=== PATIENT | female | born 1940 | race Caucasian/White ===

== ENCOUNTER → 2016-10-23 | Outpatient (CLI) | payer OTHER ==
[2016-10-23 18:09] LABS: ALKALINE PHOSPHATASE 82 U/L (45-117); ALT/SGPT 20 U/L (12-78); AST/SGOT 19 U/L (15-37)
== END | disposition home or self-care (01) ==
LOC: C.LABBFT 13:33
PROVIDERS: ATTEND Nurse Practitioner
DX: Z00.00 Encounter for general adult medical examination without abnormal findings (principal); E78.5 Hyperlipidemia, unspecified

== ENCOUNTER → 2016-11-11 | Outpatient (CLI) | payer OTHER ==
--- NOTE | 2016-11-11 08:58 | DIAGNOSTIC IMAGING REPORT ---
CT LUNG SCREENING, LOW DOSE WITH COMPUTER-AIDED DETECTION (CAD) CLINICAL HISTORY: HX OF TOBACCO USE COMPARISON STUDY: No previous studies for comparison. CT DOSE: 91.67 mGy.cm TECHNIQUE: Low-dose helical CT was acquired without intravenous contrast from lung apices to bases and reconstructed at 2.5 mm every 2 mm. CAD was utilized for this study. FINDINGS: Mild emphysema. Punctate calcified granulomas within the right lower lobe on images 174 and 173 of 321. No suspicious pulmonary nodules. No pleural effusions. No pneumothorax. Mild central bronchial wall thickening. The central airways are patent. No mediastinal or hilar lymphadenopathy. Mild calcified plaque within the aortic arch. Mild calcified plaque within the bilateral coronary arteries. Small hiatus hernia. A 1.5 cm left thyroid nodule. The visualized liver, spleen, and adrenal glands are unremarkable. Mild S-shaped scoliosis of the thoracolumbar spine. IMPRESSION: 1. No pulmonary nodules. 2. Emphysema. 3. Mild calcified plaque within the aortic arch and bilateral coronary arteries. 4. A 1.5 cm left thyroid nodule. Follow-up nonemergent thyroid ultrasound is recommended. CAD FINDINGS: Overall Lung RADS Category: 1 Lung RADS Management Recommendation: Lung-RADS 1: Continue annual screening in 12 months. Lung RADS Follow Up Date: 2017-11-11 Lung RADS Nodule ID: Electronically signed by: Christiano Rios M.D. 11/11/2016 8:57 AM Dictated Date/Time: 11/11/2016 8:50 AM
== END | disposition home or self-care (01) ==
LOC: C.CTS 08:31
PROVIDERS: ATTEND Nurse Practitioner
DX: Z87.891 Personal history of nicotine dependence (principal); J43.9 Emphysema, unspecified; E04.1 Nontoxic single thyroid nodule

== ENCOUNTER → 2016-11-18 | Outpatient (CLI) | payer OTHER ==
--- NOTE | 2016-11-18 12:58 | DIAGNOSTIC IMAGING REPORT ---
THYROID ULTRASOUND CLINICAL HISTORY: Thyroid nodule. COMPARISON STUDY: Chest CT November 11, 2016. TECHNIQUE: Sonography of the thyroid gland was performed. FINDINGS: The right thyroid lobe measures 4.3 x 1.5 x 1.5 cm and the left lobe measures 5.5 x 1.8 x 1.8 cm. Note is made of a 1.4 x 1.2 x 1.3 cm nodule within the lower pole of the left thyroid lobe. This is predominantly solid. There is a similar-appearing nodule within the midpole of the left lobe that measures 2 x 1.6 x 1.6 cm. This contains numerous tiny echogenic foci which could reflect colloid or microcalcifications. IMPRESSION: Two left lobe thyroid nodules, the largest of which measures 2 cm. The sonographic appearance is nonspecific and ultrasound guided fine needle aspiration of the 2 cm mid pole nodule could be performed. Electronically signed by: Pilo Desir M.D. 11/18/2016 12:57 PM Dictated Date/Time: 11/18/2016 12:52 PM
== END | disposition home or self-care (01) ==
LOC: C.ULTR 12:28
PROVIDERS: ATTEND Nurse Practitioner
DX: E04.2 Nontoxic multinodular goiter (principal)

== ENCOUNTER → 2016-12-02 | Outpatient (CLI) | payer OTHER ==
--- NOTE | 2016-12-02 10:38 | DIAGNOSTIC IMAGING REPORT ---
Thyroid biopsy GUIDANCE NEEDLE PLACEMENT CLINICAL HISTORY: THYROID Nodule, thyroid DISORDER TECHNIQUE: Ultrasound guided thyroid biopsy COMPARISON STUDY: 11/18/2016 FINDINGS: Following description of the procedure and informed consent, a single pass with a 25-gauge needle was made to the dominant nodule left thyroid. Pathology initially indicated adequate tissue. There are no complications. IMPRESSION: Successful left thyroid fine-needle aspiration biopsy Electronically signed by: Cesar Hoskins M.D. 12/02/2016 10:37 AM Dictated Date/Time: 12/02/2016 10:36 AM
== END | disposition home or self-care (01) ==
LOC: C.ULTR 09:47
PROVIDERS: ATTEND Nurse Practitioner
DX: E07.9 Disorder of thyroid, unspecified (principal)

== ENCOUNTER → 2017-04-20 | Outpatient (CLI) | payer OTHER ==
[2017-04-20 17:44] LABS: BASO % 1.3 %; COMPLETE YES; EOS % 2.7 %; HEMATOCRIT 39.9 % (37-47); IG% 0.5 %; LYMPH % 39.7 %; MEAN CELL VOLUME 92.4 fL (80-100); MEAN CORPUSCULAR HEMOGLOBIN 30.3 pg (25-34); MEAN CORPUSCULAR HGB CONC 32.8 g/dl (32-36); MEAN PLATELET VOLUME 10.4 fL (7.4-10.4); MONO % 5.4 %; NEUT % 50.4 %; PLATELET COUNT 215 K/uL (130-400); RED BLOOD COUNT 4.32 M/uL (4.2-5.4); WHITE BLOOD COUNT 7.81 K/uL (4.8-10.8)
[2017-04-20 17:54] LABS: URINE APPEARANCE CLOUDY (CLEAR); URINE BILIRUBIN NEG (NEG); URINE COLOR YELLOW; URINE EPITHELIAL CELL AUTO >30 /lpf (0-5); URINE NITRITE NEG (NEG); URINE SPECIFIC GRAVITY 1.021 (1.000-1.030); UROBILINOGEN NEG (NEG)
[2017-04-20 17:55] LABS: MANUAL MICROSCOPIC REQUIRED? NO; REVIEW REQ? NO
[2017-04-20 18:00] LABS: ALT/SGPT 21 U/L (12-78); BLOOD UREA NITROGEN 14 mg/dl (7-18); BUN/CREATININE RATIO 18.5 (10-20); CALCIUM 9.1 mg/dl (8.5-10.1); CARBON DIOXIDE 30 mmol/L (21-32); CHLORIDE 105 mmol/L (98-107); CHOLESTEROL 228 mg/dl (0-200); CREATININE 0.76 mg/dl (0.60-1.20); GLUCOSE 98 mg/dl (70-99); POTASSIUM 4.4 mmol/L (3.5-5.1); SODIUM 140 mmol/L (136-145); TRIGLYCERIDES 216 mg/dl (0-150); VERY LOW DENSITY LIPOPROT CALC 43 mg/dl
[2017-04-20 18:03] LABS: ALB/GLOB RATIO 1.1 (0.9-2); ALKALINE PHOSPHATASE 80 U/L (45-117); AST/SGOT 25 U/L (15-37); CHOLESTEROL/HDL RATIO 3.9; HDL CHOLESTEROL 59 mg/dl; LDL CHOLESTEROL CALCULATED 126 mg/dl
== END | disposition home or self-care (01) ==
LOC: C.LABBFT 13:49
PROVIDERS: ATTEND Nurse Practitioner
DX: R73.01 Impaired fasting glucose (principal); E78.5 Hyperlipidemia, unspecified

== ENCOUNTER → 2017-06-03 | Outpatient (CLI) | payer OTHER ==
--- NOTE | 2017-06-03 14:00 | DIAGNOSTIC IMAGING REPORT ---
THYROID ULTRASOUND CLINICAL HISTORY: Follow up thyroid nodules. COMPARISON STUDY: Thyroid ultrasound November 18, 2016 and ultrasound-guided fine needle aspiration of thyroid nodule December 02, 2016. TECHNIQUE: Sonography of the thyroid gland was performed. FINDINGS: The right lobe measures 5.3 x 1.5 x 1.7 cm and the left measures 5.8 x 1.5 x 1.8 cm. There are no right lobe nodules. The left mid pole nodule which was previously biopsied now measures 2 x 1.5 x 1.6 cm. It previously measured 2 x 1.6 x 1.6 cm. The left lower pole nodule measures 1.2 x 1.2 x 1.1 cm. It previously measured 1.4 x 1.2 x 1.3 cm. Apparent change is likely due to measurement variability. These nodules have similar imaging characteristics and are predominantly solid with small cystic spaces. IMPRESSION: No significant change in 2 left lobe thyroid nodules since exam of November 18, 2016. Electronically signed by: Pilo Desir M.D. 06/03/2017 1:58 PM Dictated Date/Time: 06/03/2017 1:56 PM
== END | disposition home or self-care (01) ==
LOC: C.ULTR 12:41
PROVIDERS: ATTEND Nurse Practitioner
DX: E04.1 Nontoxic single thyroid nodule (principal)

== ENCOUNTER → 2017-11-04 | Outpatient (CLI) | payer OTHER ==
[2017-11-04 17:26] LABS: ALT/SGPT 22 U/L (12-78); AST/SGOT 22 U/L (15-37); BLOOD UREA NITROGEN 8 mg/dl (7-18); CALCIUM 9.1 mg/dl (8.5-10.1); CARBON DIOXIDE 30 mmol/L (21-32); CHOLESTEROL 173 mg/dl (0-200); CREATININE 0.92 mg/dl (0.60-1.20); GLUCOSE 97 mg/dl (70-99); POTASSIUM 3.6 mmol/L (3.5-5.1); SODIUM 143 mmol/L (136-145)
[2017-11-04 17:29] LABS: ALKALINE PHOSPHATASE 78 U/L (45-117); LDL CHOLESTEROL CALCULATED 71 mg/dl; TOTAL PROTEIN 7.8 gm/dl (6.4-8.2)
== END | disposition home or self-care (01) ==
LOC: C.LABBFT 12:47
PROVIDERS: ATTEND Nurse Practitioner
DX: E78.5 Hyperlipidemia, unspecified (principal)

== ENCOUNTER 2018-12-03 14:41 | Inpatient (IN) ==
--- NOTE | 2018-12-03 15:42 | XRay Report ---
XR chest 1V portable CLINICAL HISTORY: 78 years-old Female presenting with ams. TECHNIQUE: Portable upright AP view of the chest was obtained. COMPARISON: 11/02/2018. FINDINGS: Atherosclerosis of the aortic arch. Cardiac silhouette normal in size. Lungs are hyperinflated. Few c alcified granulomata suggested. No other focal opacity. No pleural effusion or pneumothorax. Osteopen ia. Degenerative changes of the spine. Upper abdomen normal. IMPRESSION: 1. Findings suggest emphysema. No focal infiltrate to suggest pneumonia. Electronically signed by: Phil Matamoros M.D. 12/03/2018 3:40 PM
[2018-12-03 16:30] LABS: Basophils # (auto) 0.05 K/uL (0-0.2); Basophils % (auto) 0.8 %; Eosinophils # (auto) 0.07 K/uL (0-0.5); Eosinophils % (auto) 1.1 %; Hematocrit (blood only) 39.6 % (37-47); Hemoglobin 13.6 g/dL (12.0-16.0); Immature Granulocytes # (auto) 0.02 K/uL (0.00-0.02); Immature Granulocytes % (auto) 0.3 %; Lymphocytes # (auto) 0.56 K/uL (1.2-3.4); Lymphocytes % (auto) 8.7 %; Mean Corpuscular Hgb Conc 34.3 g/dL (32-36); Mean Platelet Volume 9.5 fL (7.4-10.4); Monocytes # (auto) 0.38 K/uL (0.11-0.59); Monocytes % (auto) 5.9 %; Neutrophils # (auto) 5.33 K/uL (1.4-6.5); Neutrophils % (auto) 83.2 %; Platelet Count 194 K/uL (130-400); RDW Coefficient of Variation 12.8 % (11.5-14.5); RDW Standard Deviation 41.9 fL (36.4-46.3); Red Blood Count 4.45 M/uL (4.2-5.4); White Blood Count 6.41 K/uL (4.8-10.8)
[2018-12-03 16:36] LABS: Base Excess VBG 4.8 mEq/L; HCO3 VBG 31 mmol/L; PCO2 VBG 51 mmHg (38-50); PO2 VBG 25 mmHg
[2018-12-03 16:37] LABS: Oxygen Saturation VBG < 60.0 %
[2018-12-03 16:41] LABS: Partial Thromboplastin Ratio 1.1; Partial Thromboplastin Time 29.7 Seconds (21.0-31.0)
[2018-12-03 16:50] LABS: Alanine Aminotransferase 17 U/L (12-78); Aspartate Aminotransferase 17 U/L (15-37); BUN Creatinine Ratio 13.1 (10-20); Bilirubin Direct 0.1 mg/dl (0-0.2); Blood Urea Nitrogen 15 mg/dl (7-18); Calcium 9.3 mg/dl (8.5-10.1); Carbon Dioxide 31 mmol/L (21-32); Chloride 101 mmol/L (98-107); Est GFR (African American) 54.7; Est GFR (Non-African American) 47.2; Glucose 111 mg/dl (70-99); Magnesium 2.1 mg/dl (1.8-2.4); Potassium 4.1 mmol/L (3.5-5.1); Sodium 138 mmol/L (136-145)
[2018-12-03 16:55] LABS: Alkaline Phosphatase 114 U/L (45-117); Bilirubin,Total 0.6 mg/dl (0.2-1); NT Pro B Type Natriuretic Pept 38 pg/ml (0-1800); Total Protein 8.4 gm/dl (6.4-8.2); Troponin I < 0.015 ng/ml (0-0.045)
--- NOTE | 2018-12-03 17:08 | CT Scan Report ---
CT head/brain wo con CLINICAL HISTORY: 78 years-old Female with ams. Acutely altered mental status TECHNIQUE: Multiple axial CT images of the head were obtained without contrast. A dose lowering tech nique was utilized adhering to the principles of ALARA. CT DOSE: 729.78 mGycm COMPARISON: None. FINDINGS: Motion degraded exam. Age-related involutional changes with ex vacuo ventriculomegaly. Scattered whit e matter hypodensities are suggestive of chronic microvascular ischemic disease. Cerebral vascular ca lcifications are also noted. No acute intracranial hemorrhage, midline shift, intracranial mass, hydr ocephalus, territorial ischemia or abnormal extra-axial collection. The calvarium is intact. The paranasal sinuses, mastoid air cells, and middle ear cavities are clear . IMPRESSION: No acute intracranial abnormality. The above report was generated using voice recognition software. It may contain grammatical, syntax o r spelling errors. Electronically signed by: Pilo Hill M.D. 12/03/2018 5:06 PM
[2018-12-03 18:31] LABS: Appearance Urine Clear (Clear); Bilirubin Urine Negative (Negative); Blood Urine Negative (Negative); Color Urine Yellow; Glucose Urine UA Negative (Negative); Ketones Urine Negative (Negative); Leukocyte Esterase Urine Negative (Negative); Nitrite Urine Negative (Negative); Protein Urine Negative (Negative); Specific Gravity Urine 1.017 (1.000-1.030); Urobilinogen Urine Negative (Negative)
[2018-12-03] MEDS ORDERED: LORazepam 1 MG/2 ML VIAL IV STA (19:33)
[2018-12-03] MEDS ORDERED: HALOPERIDOL LACTATE 5 MG/ML 1 ML VIAL ONE ×2 (19:57→20:26)
[2018-12-03] MEDS ORDERED: methylPREDNISolone 125 MG/2 ML VIAL ONE (20:02)
[2018-12-03] MEDS ORDERED: methylPREDNISolone 125 MG/2 ML VIAL IV STA (20:02)
[2018-12-03] MEDS ORDERED: DiphenhydrAMINE HCL 50 MG/ML VIAL ONE (20:02)
[2018-12-03] MEDS ORDERED: DiphenhydrAMINE HCL 50 MG/ML VIAL IV STA (20:03)
[2018-12-03] MEDS ORDERED: LEVALBUTEROL HCL 1.25 MG/3 ML NEB NEB STA (20:04)
--- NOTE | 2018-12-03 20:22 | History & Physical Report ---
Date of Service December 03, 2018 Assessment & Plan (1) Dementia: Patient is really brought here for inability of her family care for her at home and inability to have a place in a safe location. While in the ER after administration of 1 mg of intravenous Ativan she is a episode of course tremulousness sinus tachycardia during the event her blood pressure and oximetry were stable during the event she developed some expiratory wheezes and prolonged expiratory phase was treated first somewhat of a COPD exacerbation given her smoking history. Remain pale-appearing Xopenex and scheduled Solu-Medrol at this time It seemed the Benadryl did calm her trach tremulousness more effectively than Ativan she was however also given Haldol somewhere in that timeline. This affects she is significantly sundowning is a believe that she may be significantly sleep deprived also. Will attempt to use Seroquel at night utilizing intravenous Haldol and that marriage probably due to her initial screening laboratories were unremarkable at this time we will add a few additional test although her recent thyroid test was in October and unremarkable PT OT evaluation in case assembler will be utilized to help replacement this patient. History of Present Illness Primary Care Provider: LUANN Vega Patient brought in by her family stating they cannot care for her at home anymore. She typically has a caregiver from 11 AM to 2 PM. The patient is confused and demented which she reportedly is her baseline she does not want to stay she is tremulous and anxious in the ER. Reportedly she is only on Lasix and potassium which she takes for lower extremity edema. Denies alcohol use or other [id number] medicine use. Patient is a former smoker quitting a few months ago. In the ER the patient received a dose of 1 mg of IV Ativan that she had a reaction which included gross course tremors tachycardia at 160 bpm which was narrow complex appeared to be sinus tach and some stridorous breathing. She was given Haldol 2.5 mg Benadryl 25 mg which then made her more sedate and her tachycardia resolved she is currently undergoing a Xopenex nebulized treatment and Solu-Medrol 125. Review of all of her laboratory work is unrevealing and EKG after the tachycardic episode may show some lateral ST slight depressions which are likely rate related. During the episode the patient did not complain of any chest pain Allergies Allergy/AdvReac Type Severity Reaction Status Date / Time No Known Allergies Allergy Mild Unverified 12/03/18 17:06 Home Medications Home Medications Medication Instructions Recorded Confirmed Type furosemide 20 mg PO QAM 12/03/18 12/03/18 History potassium chloride 10 meq PO QAM 12/03/18 12/03/18 History Past Med/Surg History Medical History Dementia Social History Preferred Language: Maori current occupational status: retired Feels Safe at Home: Yes Review of Systems Review of Systems: ROS: Prior to the administration of the Benadryl Thin tremulous and confused No double vision blurry vision No problems with speech or swallowing No palpitations, chest pain or pressure No Wheezing or breathing issues she became having tachypnea and some expiratory wheezes post lorazepam administration No abdominal pain nausea vomiting diarrhea changes in appetite or weight No burning urine urine frequency or changes in color No focal joint pain or muscle pain No skin rashes or oral lesions No unusual bruising or bleeding No focused back pain or numbness or loss of strength Progressive changes with confusion and memory Physical Exam Physical Exam: The patient appeared thin and agitated Vital signs as documented. Head exam is unremarkable. normocephalic, atraumatic Neck is without jugular venous distension, thyromegaly, or lymphademopathy Lungs are expiratory wheezes and prolonged expiratory phase seen in her tremulous Cardiac exam reveals Rhythm was regular. She developed a sinus tach to 160 Abdominal exam reveals normal bowel sounds, no masses, no organomegaly Extremities are mildly edematous and both pedal pulses are present Neurologic exam is A&Ox2, no focal deficits, strength is equal bilateral to spontaneously moving all extremities during the event and cooperating and speaking to us during the event which makes seizures less likely Psychologically seems anxious Skin is warm Dry Results & Data Vital Signs (Past 12 Hours) Vital Signs Temp Pulse Pulse Resp BP BP Pulse Ox 12/03/18 20:13 121 H 34 H 98 12/03/18 20:11 131 H 20 97 12/03/18 20:00 37.2 C 149 H 32 H 111/83 96 12/03/18 19:36 94 12/03/18 19:35 84 L 12/03/18 18:54 113 H 24 130/72 91 12/03/18 17:10 110 H 30 H 149/90 H 93 12/03/18 16:50 106 H 36 H 91 12/03/18 16:40 107 H 30 H 91 12/03/18 16:32 104 H 27 H 91 12/03/18 16:30 100 H 27 H 94 12/03/18 16:20 105 H 27 H 91 12/03/18 16:10 109 H 33 H 92 12/03/18 16:01 106 H 31 H 130/75 94 12/03/18 16:00 106 H 34 H 93 12/03/18 15:57 107 H 33 H 145/69 H 91 12/03/18 15:56 114 H 34 H 12/03/18 15:40 104 H 24 12/03/18 15:30 108 H 33 H 12/03/18 15:25 112 H 22 12/03/18 14:45 37.3 C 103 H 20 124/[address] head unremarkable for acute issues EKG shows sinus rhythm mild ST changes laterally after her tachycardic event which is still going slightly tachycardic Chest x-ray is unremarkable for infiltrates or pathology within her chest
[2018-12-03] MEDS ORDERED: ONDANSETRON INJ 2 MG/ML 2 ML VIAL IV PRN (21:23)
[2018-12-03] MEDS ORDERED: HALOPERIDOL LACTATE 5 MG/ML 1 ML VIAL IV PRN (21:23)
[2018-12-03] MEDS ORDERED: DiphenhydrAMINE HCL 50 MG/ML VIAL IV PRN (21:23)
[2018-12-03] MEDS ORDERED: HALOPERIDOL LACTATE 5 MG/ML 1 ML VIAL IM PRN (21:23)
[2018-12-03] MEDS ORDERED: LEVALBUTEROL HCL 1.25 MG/3 ML NEB NEB PRN (21:23)
[2018-12-03] MEDS ORDERED: ACETAMINOPHEN 325 MG TAB PO PRN (21:23)
--- NOTE | 2018-12-03 21:48 | Emergency Department Note ---
Entered by Ekta Castle acting as a scribe for Marshal Patel History of Present Illness General Chief complaint: Altered Mental Status Stated complaint: DIMENTIA, CONFUSED Time Seen by Provider: 12/03/18 15:19 Source: family (daughter) Mode of arrival: ambulatory Limitations: other (dementia) History of Present Illness Provider complaint: Altered mental status Onset (ago): hour(s) (today) Location: head Radiation: non-radiation Pain Consistency: + other (worsening) Quality: + other (altered mental status) Associated symptoms: + other (Additional symptoms: leg swelling, difficulty walking, [id number] speech) Treatments prior to arrival: none The patient is a 78 year old female with a history of dementia who presents to the Emergency Room with caregiver and family at bedside who are reporting that the patient has been experiencing altered mental status starting today. Per the family member at bedside the patient's speech was also out of character today. She states that the patient's concrete paving machine operator tried to help the patient go to the bathroom for an hour but was unsuccessful because the patient was too afraid of falling. She notes that they have been trying to get a urine sample from the patient for the past few weeks but the patient has not been cooperating. The daughter expresses concern for a UTI because the patient has declined rapidly over the past few weeks. Per daughter, the patient's only medications include 20 mg Furosemide and potassium chloride.She notes that the patient's PCP is Dr. Elliott. Per daughter, the patient's concrete paving machine operator is only around for 3 hours every day, so the patient is alone at home for a significant part of the day. The family member does not feel like the patient is safe by herself. She notes that she has to leave soon and was seen walking out stating she wanted the patient admitted for placement into a nursing care facility. HPI limited secondary to dementia. Home Medications Home Medications Medication Instructions Recorded Confirmed Type furosemide 20 mg PO QAM 12/03/18 12/03/18 History potassium chloride 10 meq PO QAM 12/03/18 12/03/18 History Allergies Allergy/AdvReac Type Severity Reaction Status Date / Time No Known Allergies Allergy Mild Unverified 12/03/18 17:06 Past Med/Surg History Medical History Dementia Social History Preferred Language: Cambodian Communication Ability: Impaired Communication Ability Comment: pt sedated at this time Fruit Harvest Machine Operator Required: No Beliefs That Will Affect Care: None Current Living Situation: Alone Current Living Situation Comment: Lives byself; intermittent caregivers current occupational status: retired Other Information That Helps Us Care for You: No Feels Safe at Home: Yes Safety Concerns: Feels Safe At This Time Smoking Status: Former smoker Do You Dip or Chew Tobacco: No Second Hand Exposure: No Tobacco Cessation Education Requested by Patient: No Hx Alcohol Use: No Hx Substance Use: No Review of Systems Other (Limited secondary to dementia) Physical Exam Vital Signs Vital Signs - 24 hr 12/03/18 14:45 12/03/18 15:25 12/03/18 15:30 Temperature 37.3 C Temperature Source Oral Sepsis Recent Fever Within 48 Hours No Sepsis New/Unexplained Change in Mental Status No Sepsis Action Taken by Nursing No Action Required Pulse Rate 103 H 112 H 108 H Pulse Rate [Finger] Pulse Rate from SpO2 Sensor Respiratory Rate 20 22 33 H Respiratory Depth Normal Blood Pressure 124/73 Blood Pressure [Right Arm] Blood Pressure Mean 90 Blood Pressure Mean [Right Arm] Blood Pressure Position [Right Arm] Pulse Oximetry 94 Oxygen Delivery Method Room Air 12/03/18 15:40 12/03/18 15:56 12/03/18 15:57 Temperature Temperature Source Sepsis Recent Fever Within 48 Hours Sepsis New/Unexplained Change in Mental Status Sepsis Action Taken by Nursing Pulse Rate 104 H 114 H 107 H Pulse Rate [Finger] Pulse Rate from SpO2 Sensor 107 H Respiratory Rate 24 34 H 33 H Respiratory Depth Blood Pressure 145/69 H Blood Pressure [Right Arm] Blood Pressure Mean 94 Blood Pressure Mean [Right Arm] Blood Pressure Position [Right Arm] Pulse Oximetry 91 Oxygen Delivery Method 12/03/18 16:00 12/03/18 16:01 12/03/18 16:10 Temperature Temperature Source Sepsis Recent Fever Within 48 Hours Sepsis New/Unexplained Change in Mental Status Sepsis Action Taken by Nursing Pulse Rate 106 H 106 H 109 H Pulse Rate [Finger] Pulse Rate from SpO2 Sensor 104 H 106 H 107 H Respiratory Rate 34 H 31 H 33 H Respiratory Depth Blood Pressure 130/75 Blood Pressure [Right Arm] Blood Pressure Mean 93 Blood Pressure Mean [Right Arm] Blood Pressure Position [Right Arm] Pulse Oximetry 93 94 92 Oxygen Delivery Method 12/03/18 16:20 12/03/18 16:30 12/03/18 16:32 Temperature Temperature Source Sepsis Recent Fever Within 48 Hours Sepsis New/Unexplained Change in Mental Status Sepsis Action Taken by Nursing Pulse Rate 105 H 100 H 104 H Pulse Rate [Finger] Pulse Rate from SpO2 Sensor 107 H 99 H 104 H Respiratory Rate 27 H 27 H 27 H Respiratory Depth Blood Pressure Blood Pressure [Right Arm] Blood Pressure Mean 103 Blood Pressure Mean [Right Arm] Blood Pressure Position [Right Arm] Pulse Oximetry 91 94 91 Oxygen Delivery Method 12/03/18 16:40 12/03/18 16:50 12/03/18 17:10 Temperature Temperature Source Sepsis Recent Fever Within 48 Hours Sepsis New/Unexplained Change in Mental Status Sepsis Action Taken by Nursing Pulse Rate 107 H 106 H Pulse Rate [Finger] 110 H Pulse Rate from SpO2 Sensor 105 H 106 H Respiratory Rate 30 H 36 H 30 H Respiratory Depth Blood Pressure Blood Pressure [Right Arm] 149/90 H Blood Pressure Mean Blood Pressure Mean [Right Arm] 109 Blood Pressure Position [Right Arm] Pulse Oximetry 91 91 93 Oxygen Delivery Method Room Air 12/03/18 18:54 12/03/18 19:35 12/03/18 19:36 Temperature Temperature Source Sepsis Recent Fever Within 48 Hours Sepsis New/Unexplained Change in Mental Status Sepsis Action Taken by Nursing Pulse Rate Pulse Rate [Finger] 113 H Pulse Rate from SpO2 Sensor Respiratory Rate 24 Respiratory Depth Blood Pressure Blood Pressure [Right Arm] 130/72 Blood Pressure Mean Blood Pressure Mean [Right Arm] 91 Blood Pressure Position [Right Arm] Pulse Oximetry 91 84 L 94 Oxygen Delivery Method Room Air Room Air Room Air 12/03/18 20:00 Temperature 37.2 C Temperature Source Oral Sepsis Recent Fever Within 48 Hours Sepsis New/Unexplained Change in Mental Status Sepsis Action Taken by Nursing Pulse Rate Pulse Rate [Finger] 149 H Pulse Rate from SpO2 Sensor Respiratory Rate 32 H Respiratory Depth Blood Pressure Blood Pressure [Right Arm] 111/83 Blood Pressure Mean Blood Pressure Mean [Right Arm] 92 Blood Pressure Position [Right Arm] Lying Pulse Oximetry 96 Oxygen Delivery Method Non-rebreather HENT: Exam performed. - Head: Normocephalic and atraumatic. - Right Ear: External ear normal. No mastoid tenderness. - Left Ear: External ear normal. No mastoid tenderness. - Mouth/Throat: The oropharynx is clear and moist. No trismus in the jaw. No dental abscesses or uvula swelling. No oropharyngeal exudate or tonsillar abscesses. EYES: Conjunctivae and EOM are normal. Pupils are equal, round, and reactive to light. Right eye exhibits no discharge. Left eye exhibits no discharge. No scleral icterus. NECK: Normal range of motion. Neck supple. No JVD present. No spinous process tenderness present. No carotid bruit present. No rigidity. No tracheal deviation and normal range of motion present. No Brudzinski's sign and no Kernig's sign noted. CV: Tachycardic rate, regular rhythm, normal heart sounds and intact distal pulses. 2+ pitting edema of bilateral lower extremities. Palpable radial pulses bue. PULM/CHEST: Effort normal and breath sounds normal. No respiratory distress. No stridor. She has no wheezes. She has no rales. Chest Wall: She exhibits no tenderness. ABD: The abdomen is soft nontender to palpation MUSC/SKEL: Normal range of motion. There is no tenderness or deformity. 2+ pitting edema of bilateral lower extremities. LYMPH: No cervical adenopathy. NEURO: Motor and sensation grossly intact. SKIN: Skin is warm and dry. She is not diaphoretic. Course 1521: The patient was evaluated in room C10, and a complete history and physical examination were performed. 2004: I reevaluated the patient. Labs and imaging are within normal limits. The patient's family is adamant that she be placed in a home and are refusing to take her home because they believe that she is unsafe by herself. Dr. Prasad - [facility] was contacted for placement in a nursing care facility. 2100: The patient was becoming more agitated per nurse, thus 1 mg Ativan was ordered. After the Ativan, the patient was being evaluated by Dr. Prasad when she became tremulous and more agitated. Dr. Prasad ordered 2.5 mg Haldol IVP. However, the patient continued to be tremulous and also became tachycardic, so I gave her 25 mg Benadryl and Solu-Medrol. IV fluids were started after. The patient's tremors subsequently resolved and her heart rate improved. The patient was admitted by Dr. Prasad for further management. Consultations Consultation #1: Dr. Prasad - [facility] was contacted for placement in a nursing care facility. Time: 15:21 Administered Medications Discontinued Medications Diphenhydramine HCl (Benadryl) Confirm Administered Dose 50 mg .ROUTE .STK-MED ONE Stop: 12/03/18 20:03 Last Admin: 12/03/18 20:10 Dose: Not Given Documented by: [id number] Diphenhydramine HCl (Benadryl) 25 mg IV NOW STA Stop: 12/03/18 20:04 Last Admin: 12/03/18 20:04 Dose: 25 mg Documented by: [id number] Haloperidol Lactate (Haldol) Confirm Administered Dose 5 mg .ROUTE .STK-MED ONE Stop: 12/03/18 19:58 Last Admin: 12/03/18 19:58 Dose: 2.5 mg Documented by: [id number] Haloperidol Lactate (Haldol) Confirm Administered Dose 5 mg .ROUTE .STK-MED ONE Stop: 12/03/18 20:27 Last Admin: 12/03/18 20:28 Dose: 2.5 mg Documented by: [id number] Lorazepam (Ativan) 1 mg in 2 mls @ 2 mls/min IV NOW STA Stop: 12/03/18 19:34 Last Admin: 12/03/18 19:42 Dose: 2 mls/min Documented by: [id number] Levalbuterol HCl (Xopenex 1.25mg/3ml Neb) 1.25 mg NEB NOW STA Stop: 12/03/18 20:05 Last Admin: 12/03/18 20:10 Dose: 1.25 mg Documented by: [id number] Methylprednisolone (Solumedrol) 125 mg IV NOW STA Stop: 12/03/18 20:03 Last Admin: 12/03/18 20:04 Dose: 125 mg Documented by: [id number] Methylprednisolone (Solumedrol) Confirm Administered Dose 125 mg .ROUTE .STK-MED ONE Stop: 12/03/18 20:03 Last Admin: 12/03/18 20:10 Dose: Not Given Documented by: [id number] Medical Decision Making Medical Records Attestation: I reviewed the patient's medical records. Home Medications Current Medication List: was personally reviewed by me Laboratory Data Attestation: I reviewed the patient's lab results. Result diagrams: 12/03/18 16:13 12/03/18 16:13 Lab Results 12/03/18 12/03/18 12/03/18 Range/Units 16:13 16:13 16:13 WBC 6.41 (4.8-10.8) K/uL RBC 4.45 (4.2-5.4) M/uL Hgb 13.6 (12.0-16.0) g/dL Hct 39.6 (37-47) % MCV 89.0 (80-100) fL MCH 30.6 (25-34) pg MCHC 34.3 (32-36) g/dL RDW Std Deviation 41.9 (36.4-46.3) fL RDW Coeff of Kimi 12.8 (11.5-14.5) % Plt Count 194 (130-400) K/uL MPV 9.5 (7.4-10.4) fL Immature Gran % (Auto) 0.3 % Neut % (Auto) 83.2 % Lymph % (Auto) 8.7 % [place] % (Auto) 5.9 % Eos % (Auto) 1.1 % Baso % (Auto) 0.8 % Immature Gran # (Auto) 0.02 (0.00-0.02) K/uL Neut # (Auto) 5.33 (1.4-6.5) K/uL Lymph # (Auto) 0.56 L (1.2-3.4) K/uL [place] # (Auto) 0.38 (0.11-0.59) K/uL Eos # (Auto) 0.07 (0-0.5) K/uL Baso # (Auto) 0.05 (0-0.2) K/uL PT (9.0-12.0) Seconds INR (0.9-1.1) APTT (21.0-31.0) Seconds PTT Ratio VBG pH (7.36-7.41) VBG pCO2 (38-50) mmHg VBG pO2 mmHg VBG HCO3 mmol/L VBG O2 Saturation % VBG Base Excess mEq/L Barometric Pressure mm/Hg Sodium 138 (136-145) mmol/L Potassium 4.1 (3.5-5.1) mmol/L Chloride 101 (98-107) mmol/L Carbon Dioxide 31 (21-32) mmol/L Anion Gap 6.0 (3-11) BUN 15 (7-18) mg/dl Creatinine 1.11 (0.6-1.2) mg/dl Est Cr Clr Drug Dosing Not Reportable Est GFR ( Amer) 54.7 Est GFR (Non-Af Amer) 47.2 BUN/Creatinine Ratio 13.1 (10-20) Glucose 111 H (70-99) mg/dl Lactate 1.1 (0.4-2.0) mmol/L Calcium 9.3 (8.5-10.1) mg/dl Magnesium 2.1 (1.8-2.4) mg/dl Total Bilirubin 0.6 (0.2-1) mg/dl Direct Bilirubin 0.1 (0-0.2) mg/dl AST 17 (15-37) U/L ALT 17 (12-78) U/L Alkaline Phosphatase 114 (45-117) U/L Ammonia (11-32) umol/L Troponin I < 0.015 (0-0.045) ng/ml NT-Pro-B Natriuret Pep 38 (0-1800) pg/ml Total Protein 8.4 H (6.4-8.2) gm/dl Albumin 4.0 (3.4-5.0) gm/dl Lipase 153 (73-393) U/L Urine Color Urine Appearance (Clear) Urine pH (4.5-7.5) Ur Specific [place] (1.000-1.030) Urine Protein (Negative) Urine Glucose (UA) (Negative) Urine Ketones (Negative) Urine Blood (Negative) Urine Nitrite (Negative) Urine Bilirubin (Negative) Urine Urobilinogen (Negative) Ur Leukocyte Esterase (Negative) 12/03/18 12/03/18 12/03/18 Range/Units 16:13 16:13 16:13 WBC (4.8-10.8) K/uL RBC (4.2-5.4) M/uL Hgb (12.0-16.0) g/dL Hct (37-47) % MCV (80-100) fL MCH (25-34) pg MCHC (32-36) g/dL RDW Std Deviation (36.4-46.3) fL RDW Coeff of Kimi (11.5-14.5) % Plt Count (130-400) K/uL MPV (7.4-10.4) fL Immature Gran % (Auto) % Neut % (Auto) % Lymph % (Auto) % [place] % (Auto) % Eos % (Auto) % Baso % (Auto) % Immature Gran # (Auto) (0.00-0.02) K/uL Neut # (Auto) (1.4-6.5) K/uL Lymph # (Auto) (1.2-3.4) K/uL [place] # (Auto) (0.11-0.59) K/uL Eos # (Auto) (0-0.5) K/uL Baso # (Auto) (0-0.2) K/uL PT 10.0 (9.0-12.0) Seconds INR 1.0 (0.9-1.1) APTT 29.7 (21.0-31.0) Seconds PTT Ratio 1.1 VBG pH 7.40 (7.36-7.41) VBG pCO2 51 H (38-50) mmHg VBG pO2 25 mmHg VBG HCO3 31 mmol/L VBG O2 Saturation < 60.0 % VBG Base Excess 4.8 mEq/L Barometric Pressure 730.8 mm/Hg Sodium (136-145) mmol/L Potassium (3.5-5.1) mmol/L Chloride (98-107) mmol/L Carbon Dioxide (21-32) mmol/L Anion Gap (3-11) BUN (7-18) mg/dl Creatinine (0.6-1.2) mg/dl Est Cr Clr Drug Dosing Est GFR ( Amer) Est GFR (Non-Af Amer) BUN/Creatinine Ratio (10-20) Glucose (70-99) mg/dl Lactate (0.4-2.0) mmol/L Calcium (8.5-10.1) mg/dl Magnesium (1.8-2.4) mg/dl Total Bilirubin (0.2-1) mg/dl Direct Bilirubin (0-0.2) mg/dl AST (15-37) U/L ALT (12-78) U/L Alkaline Phosphatase (45-117) U/L Ammonia < 10.0 L (11-32) umol/L Troponin I (0-0.045) ng/ml NT-Pro-B Natriuret Pep (0-1800) pg/ml Total Protein (6.4-8.2) gm/dl Albumin (3.4-5.0) gm/dl Lipase (73-393) U/L Urine Color Urine Appearance (Clear) Urine pH (4.5-7.5) Ur Specific [place] (1.000-1.030) Urine Protein (Negative) Urine Glucose (UA) (Negative) Urine Ketones (Negative) Urine Blood (Negative) Urine Nitrite (Negative) Urine Bilirubin (Negative) Urine Urobilinogen (Negative) Ur Leukocyte Esterase (Negative) 12/03/18 Range/Units 18:05 WBC (4.8-10.8) K/uL RBC (4.2-5.4) M/uL Hgb (12.0-16.0) g/dL Hct (37-47) % MCV (80-100) fL MCH (25-34) pg MCHC (32-36) g/dL RDW Std Deviation (36.4-46.3) fL RDW Coeff of Kimi (11.5-14.5) % Plt Count (130-400) K/uL MPV (7.4-10.4) fL Immature Gran % (Auto) % Neut % (Auto) % Lymph % (Auto) % [place] % (Auto) % Eos % (Auto) % Baso % (Auto) % Immature Gran # (Auto) (0.00-0.02) K/uL Neut # (Auto) (1.4-6.5) K/uL Lymph # (Auto) (1.2-3.4) K/uL [place] # (Auto) (0.11-0.59) K/uL Eos # (Auto) (0-0.5) K/uL Baso # (Auto) (0-0.2) K/uL PT (9.0-12.0) Seconds INR (0.9-1.1) APTT (21.0-31.0) Seconds PTT Ratio VBG pH (7.36-7.41) VBG pCO2 (38-50) mmHg VBG pO2 mmHg VBG HCO3 mmol/L VBG O2 Saturation % VBG Base Excess mEq/L Barometric Pressure mm/Hg Sodium (136-145) mmol/L Potassium (3.5-5.1) mmol/L Chloride (98-107) mmol/L Carbon Dioxide (21-32) mmol/L Anion Gap (3-11) BUN (7-18) mg/dl Creatinine (0.6-1.2) mg/dl Est Cr Clr Drug Dosing Est GFR ( Amer) Est GFR (Non-Af Amer) BUN/Creatinine Ratio (10-20) Glucose (70-99) mg/dl Lactate (0.4-2.0) mmol/L Calcium (8.5-10.1) mg/dl Magnesium (1.8-2.4) mg/dl Total Bilirubin (0.2-1) mg/dl Direct Bilirubin (0-0.2) mg/dl AST (15-37) U/L ALT (12-78) U/L Alkaline Phosphatase (45-117) U/L Ammonia (11-32) umol/L Troponin I (0-0.045) ng/ml NT-Pro-B Natriuret Pep (0-1800) pg/ml Total Protein (6.4-8.2) gm/dl Albumin (3.4-5.0) gm/dl Lipase (73-393) U/L Urine Color Yellow Urine Appearance Clear (Clear) Urine pH 5.0 (4.5-7.5) Ur Specific [place] 1.017 (1.000-1.030) Urine Protein Negative (Negative) Urine Glucose (UA) Negative (Negative) Urine Ketones Negative (Negative) Urine Blood Negative (Negative) Urine Nitrite Negative (Negative) Urine Bilirubin Negative (Negative) Urine Urobilinogen Negative (Negative) Ur Leukocyte Esterase Negative (Negative) Imaging Data Radiologist's Impression: Radiology results as stated below per my review and the radiologist's interpretation: CT head/brain wo con CLINICAL HISTORY: 78 years-old Female with ams. Acutely altered mental status TECHNIQUE: Multiple axial CT images of the head were obtained without contrast. A dose lowering technique was utilized adhering to the principles of ALARA. CT DOSE: 729.78 mGycm COMPARISON: None. FINDINGS: Motion degraded exam. Age-related involutional changes with ex vacuo v entriculomegaly. Scattered white matter hypodensities are suggestive of chronic microvascular ischemic disease. Cerebral vascular calcifications are also noted. No acute intracranial hemorrhage, midline shift, intracranial mass, hydrocephalus, territorial ischemia or abnormal extra-axial collection. The calvarium is intact. The paranasal sinuses, mastoid air cells, and middle ear cavities are clear. IMPRESSION: No acute intracranial abnormality. The above report was generated using voice recognition software. It may contain grammatical, syntax or spelling errors. Electronically signed by: Pilo Hill M.D. 12/03/2018 5:06 PM XR chest 1V portable CLINICAL HISTORY: 78 years-old Female presenting with ams. TECHNIQUE: Portable upright AP view of the chest was obtained. COMPARISON: 11/02/2018. FINDINGS: Atherosclerosis of the aortic arch. Cardiac silhouette normal in size. Lungs are hyperinflated. Few calcified granulomata suggested. No other focal opacity. No pleural effusion or pneumothorax. Osteopenia. Degenerative changes of the spine. Upper abdomen normal. IMPRESSION: 1. Findings suggest emphysema. No focal infiltrate to suggest pneumonia. Electronically signed by: Phil Matamoros M.D. 12/03/2018 3:40 PM ECG Data Attestation: I personally reviewed and interpreted this ECG as follows: Indication: altered mental status Rate (beats per minute): 108 Rhythm: sinus rhythm Findings: + other (IN, QRS, and QTC intervals are within normal limits) and + PVC; no ST depression and no ST elevation Additional Comments: Repeat EKG findings: sinus rhythm; 121 BPM; IN, QRS, and QTC intervals are within normal limits; mild ST depression in leads V4 and V5, no ST elevation. Blood Pressure Blood Pressure Findings: Normal blood pressure [facility] Narrative 1521: The patient was evaluated in room C10, and a complete history and physical examination were performed. 2005: I reevaluated the patient. Labs and imaging are within normal limits. The patient's family is adamant that she be placed in a home and are refusing to take her home because they believe that she is unsafe by herself. Dr. Prasad - Hospitalist, [facility] was contacted for placement in a nursing care facility. 2100: The patient was becoming more agitated per nurse, thus 1 mg Ativan was ordered. After the Ativan, the patient was being evaluated by Dr. Prasad when she became tremulous and more agitated. Dr. Prasad ordered 2.5 mg Haldol IVP. However, the patient continued to be tremulous and also became tachycardic, so I gave her 25 mg Benadryl and Solu-Medrol. IV fluids were started after. The patient's tremors subsequently resolved and her heart rate improved. The patient was admitted by Dr. Prasad for further management. Impression & Plan Adverse drug reaction Discharge Plan Visit Data *Final* Discharge Date/Time: 12/03/18 20:33 Chief Complaint: Altered Mental Status Stated Complaint: DIMENTIA, CONFUSED ED Provider: Marshal Patel Discharge Problem: Adverse drug reaction Patient Disposition: Admitted As Inpatient Discharge Instructions Interventions: ED Discharge Assessment Last Done: 12/03/18 20:33 Discharge Problem: Adverse drug reaction Qualifiers: Encounter type: initial encounter Qualified Code(s): T50.905A - Adverse effect of unspecified drugs, medicaments and biological substances, initial encounter The scribe's documentation has been prepared under my direction and personally reviewed by me in its entirety. I confirm that the note above accurately reflects all work, treatment, procedures, and medical decision making performed by me.
[2018-12-04] MEDS: QUETIAPINE FUMARATE 25 MG TABLET PO SCH ×2 (00:37→20:26)
[2018-12-04] MEDS ORDERED: methylPREDNISolone 40 MG in SYRINGE 0 ML IV SCH (08:00)
[2018-12-04] MEDS ORDERED: PNEUMOCOCCAL POLYSACCHARIDES 25 MCG/0.5 ML VIAL/SYR IM ONE (08:00)
[2018-12-04] MEDS ORDERED: PNEUMOCOCCAL ADMINISTRATION CHARGE ONE (08:00)
--- NOTE | 2018-12-04 15:13 | Hospitalist Progress Note ---
Date of Service December 04, 2018 Assessment & Plan (1) Dementia: Patient is really brought here for inability of her family care for her at home and inability to have a place in a safe location. she has a limited resident care associate at home but at this point family looking into [facility] consult PT/OT to assist in placement process CM reached out to SNF, waiting to hear back from patient's son Williams MYERS for 2nd/3rd choices (2) Adverse drug reaction: received Ativan in the ED started to have tremors and tachycardia and wheezing, relieved with Solu Medrol and Benadryl and nebulizers hold any further Ativan will stop Solu Medrol as there is no wheezing on exam and no stridor or distress (3) Elevated troponin: no chest pain, no EKG changes, minimal rise in trop to 0.4 and then down to 0.3, initial trop was <0.015 no further troponins will transfer to medical floor Subjective patient is calm, resting in bed she is eating well, has no complaints troponin up to 0.4 this morning, down to 0.3 at noon denies any chest pain, likely due to her episode of tachycardia after reaction to Ativan patient is only oriented to person, has no idea what month or year it is, does not know type of building she is in or the town she does not know why she was brought to the hospital discussed with CM, will get PT/OT evaluations to look into SNF rehab may end of being senior care resident Review of Systems Review of Systems: Unobtainable due to cognitive status Physical Exam Constitutional: WD/WN, vitals as above Eyes: PERRL, conjunctivae normal, anicteric sclerae ENMT: external ear and nose normal, oropharynx normal Neck: trachea midline, no thyromegaly Respiratory: normal respiratory effort, lungs clear to auscultation Cardiovascular: RRR, no murmur, no edema Gastrointestinal (Abdomen): normal bowel sounds, soft, nontender, no hepatosplenomegaly Musculoskeletal: no cyanosis or clubbing, extremities motor strength 5/5 Skin: no rashes, warm and dry Neurologic: patellar DTR's 2+ bilat, sensation intact and PERRL, EOMI, accommodation nl, no face palsy, no dysarthria Psychiatric: Orientation: alert, oriented to person and cooperative; + not oriented to place and + not oriented to time Lymphatic: no cervical or axillary lymphadenopathy Results & Data Vital Signs (Past 12 Hours) Vital Signs Temp Pulse Resp BP Pulse Ox 12/04/18 11:57 36.8 C 93 H 18 126/52 L 90 12/04/18 07:13 36.5 C 75 18 102/56 L 97 Laboratory Results Laboratory Results - last 24 hr 12/03/18 12/03/18 12/03/18 16:13 16:13 16:13 WBC 6.41 RBC 4.45 Hgb 13.6 Hct 39.6 MCV 89.0 MCH 30.6 MCHC 34.3 RDW Std Deviation 41.9 RDW Coeff of Kimi 12.8 Plt Count 194 MPV 9.5 Immature Gran % (Auto) 0.3 Neut % (Auto) 83.2 Lymph % (Auto) 8.7 [place] % (Auto) 5.9 Eos % (Auto) 1.1 Baso % (Auto) 0.8 Immature Gran # (Auto) 0.02 Neut # (Auto) 5.33 Lymph # (Auto) 0.56 L [place] # (Auto) 0.38 Eos # (Auto) 0.07 Baso # (Auto) 0.05 PT INR APTT PTT Ratio VBG pH VBG pCO2 VBG pO2 VBG HCO3 VBG O2 Saturation VBG Base Excess Barometric Pressure Sodium 138 Potassium 4.1 Chloride 101 Carbon Dioxide 31 Anion Gap 6.0 BUN 15 Creatinine 1.11 Est Cr Clr Drug Dosing Not Reportable Est GFR ( Amer) 54.7 Est GFR (Non-Af Amer) 47.2 BUN/Creatinine Ratio 13.1 Glucose 111 H Lactate 1.1 Calcium 9.3 Magnesium 2.1 Total Bilirubin 0.6 Direct Bilirubin 0.1 AST 17 ALT 17 Alkaline Phosphatase 114 Ammonia Troponin I < 0.015 NT-Pro-B Natriuret Pep 38 Total Protein 8.4 H Albumin 4.0 Lipase 153 Urine Color Urine Appearance Urine pH Ur Specific [place] Urine Protein Urine Glucose (UA) Urine Ketones Urine Blood Urine Nitrite Urine Bilirubin Urine Urobilinogen Ur Leukocyte Esterase 12/03/18 12/03/18 12/03/18 16:13 16:13 16:13 WBC RBC Hgb Hct MCV MCH MCHC RDW Std Deviation RDW Coeff of Kimi Plt Count MPV Immature Gran % (Auto) Neut % (Auto) Lymph % (Auto) [place] % (Auto) Eos % (Auto) Baso % (Auto) Immature Gran # (Auto) Neut # (Auto) Lymph # (Auto) [place] # (Auto) Eos # (Auto) Baso # (Auto) PT 10.0 INR 1.0 APTT 29.7 PTT Ratio 1.1 VBG pH 7.40 VBG pCO2 51 H VBG pO2 25 VBG HCO3 31 VBG O2 Saturation < 60.0 VBG Base Excess 4.8 Barometric Pressure 730.8 Sodium Potassium Chloride Carbon Dioxide Anion Gap BUN Creatinine Est Cr Clr Drug Dosing Est GFR ( Amer) Est GFR (Non-Af Amer) BUN/Creatinine Ratio Glucose Lactate Calcium Magnesium Total Bilirubin Direct Bilirubin AST ALT Alkaline Phosphatase Ammonia < 10.0 L Troponin I NT-Pro-B Natriuret Pep Total Protein Albumin Lipase Urine Color Urine Appearance Urine pH Ur Specific [place] Urine Protein Urine Glucose (UA) Urine Ketones Urine Blood Urine Nitrite Urine Bilirubin Urine Urobilinogen Ur Leukocyte Esterase 12/03/18 12/04/18 12/04/18 18:05 05:58 11:57 WBC RBC Hgb Hct MCV MCH MCHC RDW Std Deviation RDW Coeff of Kimi Plt Count MPV Immature Gran % (Auto) Neut % (Auto) Lymph % (Auto) [place] % (Auto) Eos % (Auto) Baso % (Auto) Immature Gran # (Auto) Neut # (Auto) Lymph # (Auto) [place] # (Auto) Eos # (Auto) Baso # (Auto) PT INR APTT PTT Ratio VBG pH VBG pCO2 VBG pO2 VBG HCO3 VBG O2 Saturation VBG Base Excess Barometric Pressure Sodium Potassium Chloride Carbon Dioxide Anion Gap BUN Creatinine Est Cr Clr Drug Dosing Est GFR ( Amer) Est GFR (Non-Af Amer) BUN/Creatinine Ratio Glucose Lactate Calcium Magnesium Total Bilirubin Direct Bilirubin AST ALT Alkaline Phosphatase Ammonia Troponin I 0.427 H* 0.329 H* NT-Pro-B Natriuret Pep Total Protein Albumin Lipase Urine Color Yellow Urine Appearance Clear Urine pH 5.0 Ur Specific [place] 1.017 Urine Protein Negative Urine Glucose (UA) Negative Urine Ketones Negative Urine Blood Negative Urine Nitrite Negative Urine Bilirubin Negative Urine Urobilinogen Negative Ur Leukocyte Esterase Negative Medications Administered Current Inpatient Medications Acetaminophen (Tylenol) 650 mg PO Q4H PRN PRN Reason: Pain or Fever Stop: 01/02/19 21:22 Diphenhydramine HCl (Benadryl) 25 mg IV Q6H PRN PRN Reason: allergy or agitation Stop: 01/02/19 21:22 Haloperidol Lactate (Haldol) 5 mg IM Q6H PRN PRN Reason: Agitation Stop: 01/02/19 21:22 Haloperidol Lactate (Haldol) 1 mg IV Q1H PRN PRN Reason: Agitation Stop: 01/02/19 21:22 Methylprednisolone 40 mg/ (Syringe) 0.64 mls @ 1.5 mls/min IV Q12H [facility]MBER[facility] Stop: 01/03/19 07:59 Last Admin: 12/04/18 08:43 Dose: 1.5 mls/min Documented by: Levalbuterol HCl (Xopenex 1.25mg/3ml Neb) 1.25 mg NEB Q3H PRN PRN Reason: shortness of breath Stop: 01/02/19 21:22 Ondansetron HCl (Zofran) 4 mg IV Q6H PRN PRN Reason: Nausea Stop: 01/02/19 21:22 Quetiapine Fumarate (Seroquel) 25 mg PO HS [facility] Stop: 01/02/19 21:22 Last Admin: 12/04/18 00:37 Dose: Not Given Documented by: (1) Adverse drug reaction Encounter type: initial encounter Qualified Code(s): T50.905A - Adverse effect of unspecified drugs, medicaments and biological substances, initial encounter
[2018-12-05] MEDS ORDERED: PIPERACILL/TAZOBAC CONSULT ACTIVE PRN (10:37)
--- NOTE | 2018-12-05 10:43 | Hospitalist Progress Note ---
Date of Service December 05, 2018 Assessment & Plan (1) Pneumonia: Now with fever and tachycardia, and crackles at the left base, along with left lower lobe infiltrate present starting on 12/05. Question if had aspiration event after receiving Ativan in the ER -Draw blood cultures -Give acetaminophen as needed for fever -Started Zosyn today to cover for aspiration pneumonia -Give 1 L of normal saline at 80 mL's per hour Unclear if this pneumonia is related to the alteration in mental status that brought her in, but this did develop within 48 hours after admission (2) Fever: Related to left lower lobe pneumonia as above, question aspiration pneumon itis -Treat with a Tylenol and antibiotics as above (3) Dementia: Patient is really brought here for inability of her family care for her at home and inability to have a place in a safe location. she has a limited manager care management at home but at this point family looking into [facility] [address] [facility] Presented with altered mental status consult PT/OT to assist in placement process CM planning for placement at longterm after discharge -Discontinue IV diphenhydramine as this could worsen altered mental status -Can give IM Haldol as needed for severe agitation -We will give supportive care (4) Adverse drug reaction: received Ativan in the ED started to have tremors and tachycardia and wheezing, relieved with Solu Medrol and Benadryl and nebulizers hold any further Ativan will stop Solu Medrol as there is no wheezing on exam and no stridor or distress (5) Elevated troponin: no chest pain, no EKG changes, minimal rise in trop to 0.4 and then down to 0.3, initial trop was <0.015 no further troponins No further telemetry monitoring was needed and she was since transferred to the medical floor (6) DVT prophylaxis: Lovenox 40 mg SQ daily added today Disposition-remain hospitalized at least 1-2 more days to ensure blood cultures with no growth and fevers resolving Appreciate PT/OT evaluations in case management involvement with future placement in a longterm Full code Subjective Patient was noted to have a fever this morning. She denies any problems to me. Denies cough however RN reports that the patient has had rhonchi today. The patient denies nausea or vomiting, denies chest pain shortness of breath, denies abdominal pain. She could not tell me where she was when I asked her. Review of Systems Review of Systems: All systems reviewed & are unremarkable except as noted in HPI & below Physical Exam Constitutional: WD/WN, vitals as above Eyes: PERRL, conjunctivae normal, anicteric sclerae ENMT: external ear and nose normal, oropharynx normal (MMM) Neck: trachea midline, no thyromegaly Respiratory: normal respiratory effort Auscultation: + crackles (left middle lung lutz and decreased BS right upper lung field); no wheezes Cardiovascular: RRR, no murmur, no edema Gastrointestinal (Abdomen): normal bowel sounds, soft, nontender, no hepatosplenomegaly Musculoskeletal: Extremities: extremities normal to inspection; no cyanosis and no clubbing Skin: no rashes, warm and dry Neurologic: moves all extremities and awake; no focal motor deficits Psychiatric: Orientation: alert, oriented to person and cooperative; + not oriented to place ("I don't know") and + not oriented to time (year is "2 thousand...something") Results & Data Vital Signs (Past 12 Hours) Vital Signs Temp Pulse Resp BP BP Pulse Ox 12/05/18 07:38 39.3 C H 99 H 20 156/75 H 90 12/05/18 07:30 39.3 C H 99 H 20 127/63 90 12/05/18 07:04 37.7 C H 12/05/18 04:21 81 16 93 12/05/18 00:50 36.7 C 88 20 117/67 92 Laboratory Results 12/05/18 12/05/18 12/05/18 Range/Units 10:37 10:37 10:37 WBC 5.68 (4.8-10.8) K/uL RBC 4.17 L (4.2-5.4) M/uL Hgb 12.2 (12.0-16.0) g/dL Hct 37.2 (37-47) % MCV 89.2 (80-100) fL MCH 29.3 (25-34) pg MCHC 32.8 (32-36) g/dL RDW Std Deviation 42.0 (36.4-46.3) fL RDW Coeff of Kimi 13.0 (11.5-14.5) % Plt Count 143 (130-400) K/uL MPV 9.4 (7.4-10.4) fL Immature Gran % (Auto) 0.7 % Neut % (Auto) 79.9 % Lymph % (Auto) 12.7 % [place] % (Auto) 6.2 % Eos % (Auto) 0.0 % Baso % (Auto) 0.5 % Immature Gran # (Auto) 0.04 H (0.00-0.02) K/uL Neut # (Auto) 4.54 (1.4-6.5) K/uL Lymph # (Auto) 0.72 L (1.2-3.4) K/uL [place] # (Auto) 0.35 (0.11-0.59) K/uL Eos # (Auto) 0.00 (0-0.5) K/uL Baso # (Auto) 0.03 (0-0.2) K/uL Sodium 138 (136-145) mmol/L Potassium 3.6 (3.5-5.1) mmol/L Chloride 103 (98-107) mmol/L Carbon Dioxide 30 (21-32) mmol/L Anion Gap 5.0 (3-11) BUN 21 H (7-18) mg/dl Creatinine 1.13 (0.6-1.2) mg/dl Est Cr Clr Drug Dosing 35.2 ml/min Est GFR ( Amer) 53.5 Est GFR (Non-Af Amer) 46.2 BUN/Creatinine Ratio 18.6 (10-20) Glucose 95 (70-99) mg/dl Calcium 8.9 (8.5-10.1) mg/dl Total Bilirubin 0.3 (0.2-1) mg/dl Direct Bilirubin < 0.1 (0-0.2) mg/dl AST 21 (15-37) U/L ALT 16 (12-78) U/L Alkaline Phosphatase 95 (45-117) U/L Total Protein 7.5 (6.4-8.2) gm/dl Albumin 3.4 (3.4-5.0) gm/dl Procalcitonin 0.46 (0-0.5) ng/ml Diagnostic Findings Chest x-ray image personally reviewed by me and agree with the following report: XR chest 1V portable HISTORY: 78 years-old Female hypoxia,fever acute fever COMPARISON: Chest radiograph 12/03/2018 TECHNIQUE: Portable AP view of the chest FINDINGS: Patient is slightly rotated which limits the study. Cardiomediastinal and hilar silhouettes are unchanged. Lungs are mildly hyperinflated. No pneumothorax or overt pulmonary edema. Mild blunting of the left costophrenic angle with left basilar opacities. Degenerative changes of the shoulders and spine. IMPRESSION: 1. Subsegmental left basilar opacities suggest atelectasis or pneumonitis. 2. Probable trace left pleural effusion. (1) Adverse drug reaction Encounter type: initial encounter Qualified Code(s): T50.905A - Adverse effect of unspecified drugs, medicaments and biological substances, initial encounter
[2018-12-05 11:00] LABS: Basophils # (auto) 0.03 K/uL (0-0.2); Basophils % (auto) 0.5 %; Hematocrit (blood only) 37.2 % (37-47); Hemoglobin 12.2 g/dL (12.0-16.0); Immature Granulocytes # (auto) 0.04 K/uL (0.00-0.02); Immature Granulocytes % (auto) 0.7 %; Lymphocytes # (auto) 0.72 K/uL (1.2-3.4); Lymphocytes % (auto) 12.7 %; Mean Corpuscular Hgb Conc 32.8 g/dL (32-36); Mean Corpuscular Volume 89.2 fL (80-100); Mean Platelet Volume 9.4 fL (7.4-10.4); Monocytes # (auto) 0.35 K/uL (0.11-0.59); Monocytes % (auto) 6.2 %; Neutrophils # (auto) 4.54 K/uL (1.4-6.5); Neutrophils % (auto) 79.9 %; Platelet Count 143 K/uL (130-400); Red Blood Count 4.17 M/uL (4.2-5.4); White Blood Count 5.68 K/uL (4.8-10.8)
[2018-12-05] MEDS ORDERED: PIPERACILLIN/TAZOBACTAM 3.375 GM in DEXTROSE 5% 100 ML IV ONE (11:15)
[2018-12-05 11:23] LABS: Alanine Aminotransferase 16 U/L (12-78); Albumin Level 3.4 gm/dl (3.4-5.0); Aspartate Aminotransferase 21 U/L (15-37); BUN Creatinine Ratio 18.6 (10-20); Blood Urea Nitrogen 21 mg/dl (7-18); Calcium 8.9 mg/dl (8.5-10.1); Carbon Dioxide 30 mmol/L (21-32); Chloride 103 mmol/L (98-107); Creatinine Clr Calc Pharmacy 35.2 ml/min; Est GFR (African American) 53.5; Est GFR (Non-African American) 46.2; Glucose 95 mg/dl (70-99); Potassium 3.6 mmol/L (3.5-5.1); Sodium 138 mmol/L (136-145)
[2018-12-05 11:25] LABS: Alkaline Phosphatase 95 U/L (45-117); Bilirubin Direct < 0.1 mg/dl (0-0.2); Bilirubin,Total 0.3 mg/dl (0.2-1); Total Protein 7.5 gm/dl (6.4-8.2)
[2018-12-05] MEDS: ENOXAPARIN INJ 40 MG/0.4 ML SYR SQ SCH (12:08)
--- NOTE | 2018-12-05 12:32 | XRay Report ---
XR chest 1V portable HISTORY: 78 years-old Female hypoxia,fever acute fever COMPARISON: Chest radiograph 12/03/2018 TECHNIQUE: Portable AP view of the chest FINDINGS: Patient is slightly rotated which limits the study. Cardiomediastinal and hilar silhouettes are uncha nged. Lungs are mildly hyperinflated. No pneumothorax or overt pulmonary edema. Mild blunting of the left costophrenic angle with left basilar opacities. Degenerative changes of the shoulders and spine. IMPRESSION: 1. Subsegmental left basilar opacities suggest atelectasis or pneumonitis. 2. Probable trace left pleural effusion. The above report was generated using voice recognition software. It may contain grammatical, syntax o r spelling errors. Electronically signed by: Pilo Hill M.D. 12/05/2018 12:30 PM
[2018-12-05] MEDS: PIPERACILLIN/TAZOBACTAM 3.375 GM in DEXTROSE 5% 100 ML IV SCH (16:47)
[2018-12-05] MEDS: QUETIAPINE FUMARATE 25 MG TABLET PO SCH (21:39)
[2018-12-06] MEDS: PIPERACILLIN/TAZOBACTAM 3.375 GM in DEXTROSE 5% 100 ML IV SCH ×4 (00:05→23:09)
[2018-12-06] MEDS ORDERED: SODIUM CHLORIDE 0.9% 1000ML 1,000 ML IV SCH (01:30)
[2018-12-06 07:16] LABS: Basophils # (auto) 0.05 K/uL (0-0.2); Basophils % (auto) 1.1 %; Eosinophils # (auto) 0.03 K/uL (0-0.5); Eosinophils % (auto) 0.7 %; Hematocrit (blood only) 33.9 % (37-47); Hemoglobin 11.3 g/dL (12.0-16.0); Immature Granulocytes # (auto) 0.03 K/uL (0.00-0.02); Immature Granulocytes % (auto) 0.7 %; Lymphocytes # (auto) 1.02 K/uL (1.2-3.4); Mean Corpuscular Hgb Conc 33.3 g/dL (32-36); Mean Corpuscular Volume 87.8 fL (80-100); Mean Platelet Volume 9.4 fL (7.4-10.4); Monocytes # (auto) 0.44 K/uL (0.11-0.59); Monocytes % (auto) 9.9 %; Neutrophils # (auto) 2.86 K/uL (1.4-6.5); Neutrophils % (auto) 64.6 %; Platelet Count 128 K/uL (130-400); RDW Coefficient of Variation 13.3 % (11.5-14.5); RDW Standard Deviation 42.7 fL (36.4-46.3); Red Blood Count 3.86 M/uL (4.2-5.4); White Blood Count 4.43 K/uL (4.8-10.8)
[2018-12-06 07:45] LABS: RBC Morphology Unremarkable
[2018-12-06 07:50] LABS: BUN Creatinine Ratio 11.9 (10-20); Calcium 8.6 mg/dl (8.5-10.1); Creatinine Clr Calc Pharmacy 31.8 ml/min; Est GFR (African American) 47.4; Est GFR (Non-African American) 40.9; Potassium 3.5 mmol/L (3.5-5.1)
[2018-12-06] MEDS: ENOXAPARIN INJ 40 MG/0.4 ML SYR SQ SCH (11:20)
--- NOTE | 2018-12-06 14:16 | Hospitalist Progress Note ---
Date of Service December 06, 2018 Assessment & Plan (1) Pneumonia: fever and tachycardia developed on 12/05, left lower lobe infiltrate present on CXR Question if had aspiration event after receiving Ativan in the ER - no growth on blood cultures -Give acetaminophen as needed for fever -continue Zosyn, no fever since starting antibiotics no distress, minimal cough continue Zosyn until d/c and then transition to Augmentin to complete 7 days (2) Fever: Related to left lower lobe pneumonia as above, question aspiration pneumonitis -Treat with a Tylenol and antibiotics as above no fever for over 24 hours (3) Dementia: Patient is really brought here for inability of her family care for her at home and inability to have a place in a safe location. she has a limited health care recruiter at home but at this point family looking into [facility] Presented with altered mental status consult PT/OT to assist in placement process CM planning for placement at senior living after discharge plan to d/c to [facility] tomorrow (4) Adverse drug reaction: received Ativan in the ED started to have tremors and tachycardia and wheezing, relieved with Solu Medrol and Benadryl and nebulizers hold any further Ativan will stop Solu Medrol as there is no wheezing on exam and no stridor or distress (5) Elevated troponin: no chest pain, no EKG changes, minimal rise in trop to 0.4 and then down to 0.3, initial trop was <0.015 no further troponins No further telemetry monitoring was needed and she was since transferred to the medical floor (6) DVT prophylaxis: Lovenox 40 mg SQ daily added today Disposition- plan for SNF tomorrow Full code Subjective patient doing well, sitting up in a chair, no distress reports that she is breathing well no fever since yesterday WBC normal, minimal cough reports that she is eating well reviewed labs and updates since yesterday Review of Systems Review of Systems: All systems reviewed & are unremarkable except as noted in HPI & below Constitutional: no fever, no chills and no sweats Respiratory: no cough and no dyspnea Cardiovascular: no chest pain Gastrointestinal: no abdominal pain, no nausea, no vomiting, no constipation and no diarrhea/loose stools Physical Exam Constitutional: WD/WN, vitals as above Eyes: PERRL, conjunctivae normal, anicteric sclerae ENMT: external ear and nose normal, oropharynx normal Neck: trachea midline, no thyromegaly Respiratory: normal respiratory effort; no respiratory distress Auscultation: + crackles (left base); no rales, no rhonchi and no wheezes Cardiovascular: RRR, no murmur, no edema Gastrointestinal (Abdomen): normal bowel sounds, soft, nontender, no hepatosplenomegaly Musculoskeletal: no cyanosis or clubbing, extremities motor strength 5/5 Skin: no rashes, warm and dry Neurologic: patellar DTR's 2+ bilat, sensation intact and PERRL, EOMI, accommodation nl, no face palsy, no dysarthria Psychiatric: Orientation: alert, oriented to person and cooperative; + not oriented to place and + not oriented to time Lymphatic: no cervical or axillary lymphadenopathy Results & Data Vital Signs (Past 12 Hours) Vital Signs Temp Pulse Resp BP Pulse Ox 12/06/18 06:00 37.5 C 98 H 18 115/70 98 Laboratory Results Laboratory Results - last 24 hr 12/06/18 12/06/18 06:59 06:59 WBC 4.43 L RBC 3.86 L Hgb 11.3 L Hct 33.9 L MCV 87.8 MCH 29.3 MCHC 33.3 RDW Std Deviation 42.7 RDW Coeff of Kimi 13.3 Plt Count 128 L MPV 9.4 Immature Gran % (Auto) 0.7 Neut % (Auto) 64.6 Lymph % (Auto) 23.0 [place] % (Auto) 9.9 Eos % (Auto) 0.7 Baso % (Auto) 1.1 Immature Gran # (Auto) 0.03 H Neut # (Auto) 2.86 Lymph # (Auto) 1.02 L [place] # (Auto) 0.44 Eos # (Auto) 0.03 Baso # (Auto) 0.05 RBC Morphology Unremarkable Sodium 138 Potassium 3.5 Chloride 102 Carbon Dioxide 31 Anion Gap 5.0 BUN 15 Creatinine 1.25 H Est Cr Clr Drug Dosing 31.8 Est GFR ( Amer) 47.4 Est GFR (Non-Af Amer) 40.9 BUN/Creatinine Ratio 11.9 Glucose 108 H Calcium 8.6 Medications Administered Current Inpatient Medications Acetaminophen (Tylenol) 650 mg PO Q4H PRN PRN Reason: Pain or Fever Stop: 01/02/19 21:22 Last Admin: 12/05/18 06:41 Dose: 650 mg Documented by: Enoxaparin Sodium (Lovenox) 40 mg SQ QAM [facility] Stop: 01/04/19 10:44 Last Admin: 12/06/18 11:20 Dose: 40 mg Documented by: Haloperidol Lactate (Haldol) 5 mg IM Q6H PRN PRN Reason: Agitation Stop: 01/02/19 21:22 Piperacillin Sod/Tazobactam (Sod 3.375 gm/ Dextrose) 115 mls @ 28.75 mls/hr IV Q8H [facility]; Protocol Stop: 12/12/18 15:59 Last Infusion: 12/06/18 13:17 Dose: Infused Documented by: Levalbuterol HCl (Xopenex 1.25mg/3ml Neb) 1.25 mg NEB Q3H PRN PRN Reason: shortness of breath Stop: 01/02/19 21:22 Last Admin: 12/05/18 04:19 Dose: 1.25 mg Documented by: Miscellaneous Information (Consult) 1 ea N/A UD PRN PRN Reason: Consult Stop: 01/04/19 10:36 Ondansetron HCl (Zofran) 4 mg IV Q6H PRN PRN Reason: Nausea Stop: 01/02/19 21:22 Quetiapine Fumarate (Seroquel) 25 mg PO HS [facility] Stop: 01/02/19 21:22 Last Admin: 12/05/18 21:39 Dose: 25 mg Documented by: (1) Adverse drug reaction Encounter type: initial encounter Qualified Code(s): T50.905A - Adverse effect of unspecified drugs, medicaments and biological substances, initial encounter
[2018-12-06] MEDS: QUETIAPINE FUMARATE 25 MG TABLET PO SCH (20:36)
[2018-12-07] MEDS: PIPERACILLIN/TAZOBACTAM 3.375 GM in DEXTROSE 5% 100 ML IV SCH (07:56)
[2018-12-07] MEDS: ENOXAPARIN INJ 40 MG/0.4 ML SYR SQ SCH (07:57)
[2018-12-07 07:58] LABS: Appearance Urine Clear (Clear); Bacteria Urine Automated Negative (Negative); Blood Urine Negative (Negative); Color Urine Dark Yellow; Epithelial Cell Urine Auto 20-30 /lpf (0-5); Glucose Urine UA Negative (Negative); Ketones Urine Trace (Negative); Leukocyte Esterase Urine Negative (Negative); Nitrite Urine Negative (Negative); Protein Urine 1+ (Negative); RBC Urine Automated 0-4 /hpf (0-4); Specific Gravity Urine 1.032 (1.000-1.030); Urobilinogen Urine Negative (Negative)
[2018-12-07 08:28] LABS: Bilirubin Urine Negative (Negative); Ictotest Urine Negative (Negative)
[2018-12-07 08:31] LABS: Creatinine Clr Calc Pharmacy 37.2 ml/min; Est GFR (African American) 57.2; Est GFR (Non-African American) 49.3
[2018-12-07 08:58] LABS: Calcium Oxalate Crystals Urine Present (None Prsent)
--- NOTE | 2018-12-07 16:45 | Discharge Summary ---
Date of Service December 07, 2018 Admission HPI Per Admitting Provider Patient brought in by her family stating they cannot care for her at home anymore. She typically has a caregiver from 11 AM to 2 PM. The patient is confused and demented which she reportedly is her baseline she does not want to stay she is tremulous and anxious in the ER. Reportedly she is only on Lasix and potassium which she takes for lower extremity edema. Denies alcohol use or other [id number] medicine use. Patient is a former smoker quitting a few months ago. In the ER the patient received a dose of 1 mg of IV Ativan that she had a reaction which included gross course tremors tachycardia at 160 bpm which was narrow complex appeared to be sinus tach and some stridorous breathing. She was given Haldol 2.5 mg Benadryl 25 mg which then made her more sedate and her tachycardia resolved she is currently undergoing a Xopenex nebulized treatment and Solu-Medrol 125. Review of all of her laboratory work is unrevealing and EKG after the tachycardic episode may show some lateral ST slight depressions which are likely rate related. During the episode the patient did not complain of any chest pain Admission Exam Per Admitting Provider The patient appeared thin and agitated Vital signs as documented. Head exam is unremarkable. normocephalic, atraumatic Neck is without jugular venous distension, thyromegaly, or lymphademopathy Lungs are expiratory wheezes and prolonged expiratory phase seen in her tremulous Cardiac exam reveals Rhythm was regular. She developed a sinus tach to 160 Abdominal exam reveals normal bowel sounds, no masses, no organomegaly Extremities are mildly edematous and both pedal pulses are present Neurologic exam is A&Ox2, no focal deficits, strength is equal bilateral to spontaneously moving all extremities during the event and cooperating and speaking to us during the event which makes seizures less likely Psychologically seems anxious Skin is warm Dry Principal Diagnosis Left lower lobe pneumonia Discharge Exam Constitutional WD/WN, vitals as above Eyes PERRL, conjunctivae normal, anicteric sclerae ENMT external ear and nose normal, oropharynx normal Neck trachea midline, no thyromegaly Respiratory normal respiratory effort, lungs clear to auscultation normal respiratory effort; no respiratory distress Auscultation: no rales, no rhonchi and no wheezes Cardiovascular RRR, no murmur, no edema Gastrointestinal (Abdomen) normal bowel sounds, soft, nontender, no hepatosplenomegaly Musculoskeletal no cyanosis or clubbing, extremities motor strength 5/5 Skin no rashes, warm and dry Neurologic patellar DTR's 2+ bilat, sensation intact and PERRL, EOMI, accommodation nl, no face palsy, no dysarthria Psychiatric Orientation: alert, oriented to person and cooperative; + not oriented to place and + not oriented to time Lymphatic no cervical or axillary lymphadenopathy Discharge Data Allergies Allergy/AdvReac Type Severity Reaction Status Date / Time lorazepam [From Ativan] AdvReac Difficulty Verified 12/05/18 04:08 Breathing Consultations 12/03/18 18:35 ED Decision to Admit Stat 12/03/18 21:23 Consult Case Management - Discharge Planning Routine Ordered Studies 12/03/18 15:27 CT head/brain wo con Stat Hospital Course (1) Pneumonia: fever and tachycardia developed on 12/05, left lower lobe infiltrate present on CXR Question if had aspiration event after receiving Ativan in the ER - no growth on blood cultures -Give acetaminophen as needed for fever -treated with Zosyn, no fevers, WBC normal no cough, no respiratory distress, no hypoxia will d/c on Augmentin to complete a 7 day course (2) Fever: Related to left lower lobe pneumonia as above, question aspiration pneumonitis -Treat with a Tylenol and antibiotics as above no fever for over 72 hours (3) Dementia: Patient is really brought here for inability of her family care for her at home and inability to have a place in a safe location. she has a limited wound care nurse at home but at this point family looking into [facility] Presented with altered mental status consult PT/OT to assist in placement process CM planning [facility] after discharge plan to d/c to [facility] (4) Adverse drug reaction: received Ativan in the ED started to have tremors and tachycardia and wheezing, relieved with Solu Medrol and Benadryl and nebulizers hold any further Ativan will stop Solu Medrol as there is no wheezing on exam and no stridor or distress (5) Elevated troponin: no chest pain, no EKG changes, minimal rise in trop to 0.4 and then down to 0.3, initial trop was <0.015 no further troponins No further telemetry monitoring was needed and she was since transferred to the medical floor (6) DVT prophylaxis: Lovenox 40 mg SQ daily added today Disposition- plan for SNF tomorrow Full code (7) Urinary retention: likely due to starting Seroquel on admission as she never had this issue required straight catheterizations every shift will stop Seroquel as it really is not effective, question if there is a need for it, very pleasant and cooperative will ask that [facility] continue to straight cath every shift until the issue resolves, should resolve in the next week Total Time Total Time Spent Total Time Spent (In Minutes): 35 minutes Total Time Includes: Examination of the Patient, Discharge Planning, Medication Reconciliation and Other (long talk with patient's daughter over the phone) Discharge Plan Discharge Items Patient Disposition: Transfer Custodial Fac Reason For Visit: ENCEPHALOPATHY Discharge Diagnosis: Dementia Ambulatory dysfunction Left lower lobe pneumonia urinary retention Condition: Good Discharge Goals: Improve disease control and Improve function Activity: Resume your previous activity Non-emergency contact: Primary Care Provider Call non-emergency contact if: you have any medication questions, your symptoms worsen and you have a fever Follow-up/Referrals: Ingrid Elliott CRNP [Primary Care Provider] - Diet: Regular Addtl Provider Instructions: Medications: - AUGMENTIN: take twice a day for 9 more doses, next dose due this evening, to treat pneumonia Left lower lobe pneumonia occurred after she had a vomiting episode in the ED had fever on 12/05 and CXR with left lower lobe infiltrate treated with Zosyn IV and no fever, normal WBC ever since no respiratory distress, no hypoxia, no cough complete 9 more doses of Augmentin Urinary retention: did not come in with this issue suspect it was due to Seroquel that was started on admission will stop Seroquel please straight cath every shift until patient is urinating regularly Dementia: long standing issue, pleasant and cooperative no major behavioral issues needs rehab to get stronger, had some falls at home FOLLOW UP - physician at [facility] this week Prescriptions: New amoxicillin-pot clavulanate 875-125 mg Tablet 1 tab PO BIDM Qty: 9 RF: 0 Continued potassium chloride 10 mEq capsule, extended release 10 meq PO QAM RF: 0 furosemide 20 mg tablet 20 mg PO QAM RF: 0 Stand-Alone Forms: [facility] Discharge Orders: Discharge Order (Routine); Ordered 12/07/18 Ordered By: Rc Jeffery Skilled Items Patient informed of condition?: Yes DNR: No Discharge Level of Care: Skilled Communicable Disease: No Discharge Prognosis: Stable Admission Data Admit Date/Time: 12/03/18 20:05 Attending Provider: Rc Jeffery Admit Provider: Jose D Prasad Primary Care Provider: Ingrid Elliott Other Providers: Jose D Prasad ; IRB Approved Study,[facility] ; [facility] Service: Medical Other Interventions: Discharge Summary Assessment (RN) Last Done: 12/07/18 14:59 DC Date/Time DO NOT enter until pt leaves facility: 12/07/18 15:05
[2018-12-07] MEDS ORDERED: AMOXICILLIN/CLAVULANATE 875 MG TAB PO SCH (17:00)
== END 2018-12-07 15:05 ==
LOC: ED 14:41 → SUATTDRO 20:05 → 2E 20:05 → 4W 12-04 15:21

== ENCOUNTER 2019-02-21 10:10 | Inpatient (IN) ==
[2019-02-21] MEDS ORDERED: SODIUM CHLORIDE 0.9% 1000ML 1,000 ML IV SCH (10:30)
[2019-02-21 10:46] LABS: Basophils # (auto) 0.03 K/uL (0-0.2); Basophils % (auto) 0.2 %; Eosinophils # (auto) 0.03 K/uL (0-0.5); Eosinophils % (auto) 0.2 %; Hematocrit (blood only) 36.4 % (37-47); Hemoglobin 11.8 g/dL (12.0-16.0); Immature Granulocytes # (auto) 0.11 K/uL (0.00-0.02); Immature Granulocytes % (auto) 0.8 %; Lymphocytes # (auto) 0.93 K/uL (1.2-3.4); Lymphocytes % (auto) 6.6 %; Mean Corpuscular Hemoglobin 28.6 pg (25-34); Mean Corpuscular Hgb Conc 32.4 g/dL (32-36); Mean Corpuscular Volume 88.1 fL (80-100); Mean Platelet Volume 8.8 fL (7.4-10.4); Monocytes # (auto) 0.64 K/uL (0.11-0.59); Monocytes % (auto) 4.6 %; Neutrophils # (auto) 12.28 K/uL (1.4-6.5); Neutrophils % (auto) 87.6 %; Platelet Count 252 K/uL (130-400); RDW Coefficient of Variation 13.7 % (11.5-14.5); RDW Standard Deviation 44.3 fL (36.4-46.3); Red Blood Count 4.13 M/uL (4.2-5.4); White Blood Count 14.02 K/uL (4.8-10.8)
[2019-02-21 10:50] LABS: iSTAT Creatinine 0.8 mg/dl (0.6-1.3); iSTAT Hemoglobin 12.2 g/dl (12.0-16.0); iSTAT Ionized Calcium 1.21 mmol/l (1.12-1.32); iSTAT Potassium 3.6 mEq/L (3.3-5.0)
[2019-02-21 11:03] LABS: Alanine Aminotransferase 27 U/L (12-78); Albumin Level 3.2 gm/dl (3.4-5.0); Aspartate Aminotransferase 22 U/L (15-37); BUN Creatinine Ratio 22.4 (10-20); Blood Urea Nitrogen 21 mg/dl (7-18); Calcium 9.3 mg/dl (8.5-10.1); Carbon Dioxide 30 mmol/L (21-32); Chloride 105 mmol/L (98-107); Est GFR (African American) 67.7; Est GFR (Non-African American) 58.5; Glucose 120 mg/dl (70-99); Potassium 3.6 mmol/L (3.5-5.1); Sodium 141 mmol/L (136-145)
[2019-02-21] MEDS ORDERED: IOVERSOL 100ml IV PRN (11:05)
[2019-02-21 11:07] LABS: Albumin Globulin Ratio 0.7 (0.9-2); Alkaline Phosphatase 108 U/L (45-117); Bilirubin,Total 0.3 mg/dl (0.2-1); Globulin 4.4 gm/dl (2.5-4.0); Total Protein 7.6 gm/dl (6.4-8.2); Troponin I < 0.015 ng/ml (0-0.045)
--- NOTE | 2019-02-21 11:24 | CT Scan Report ---
HEAD CT NONCONTRAST CT DOSE: HISTORY: fall from bed TECHNIQUE: Multiaxial CT images of the head were performed without the use of intravenous contrast. A utomated exposure control was utilized for this study. A dose lowering technique was utilized adheri ng to the principles of ALARA. Comparison: Head CT 12/03/2018. Findings: Old, healed nasal bone fractures. The nasal sinuses and mastoid air cells are clear. The ca lvarium and skull base are intact. There is no mass, hematoma, midline shift, acute infarct. White ma tter hypodensity is nonspecific but suggestive of microvascular ischemic change. The ventricles and s ulci demonstrate mild age-related involutional changes. Impression: No significant change compared to the prior study. No acute intracranial abnormality. Electronically signed by: Christiano Rios M.D. 02/21/2019 11:23 AM
--- NOTE | 2019-02-21 11:41 | CT Scan Report ---
CT chest w con CLINICAL HISTORY: 78 years-old Female presenting with fall, right rib pain, hypoxia. TECHNIQUE: Multidetector CT imaging of the chest was performed after the administration of intravenou s contrast. IV contrast: 93 mL Optiray 320. One or more dose lowering techniques were used consistent with the principles of ALARA (as low as reasonably achievable), including automatic exposure control , mA or kV adjustment to individual patient size, and/or use of iterative reconstruction. COMPARISON: 11/11/2016. CT DOSE (mGy.cm): The estimated cumulative dose is 1269.43. FINDINGS: [employer] topogram: Unremarkable. Soft tissues: Dominant nodule in the left lobe of the thyroid is unchanged. No axillary, supraclavicu lar, mediastinal, or hilar lymphadenopathy. Atherosclerosis of the aorta. Normal heart size. Coronary artery calcification. No pericardial or pleural effusion. Small to moderate hiatal hernia. Lungs and airways: No pneumothorax. Bronchial wall thickening and subsegmental bronchial debris noted in the lower lobes, left greater than right. Dependent consolidation and volume loss in the left low er lobe, likely extensive atelectasis. Moderate upper lobe predominant centrilobular emphysema. Punct ate solid nodule in the right upper lobe (series 6 image 107). No other focal infiltrate.. Pulmonary arteries are not significantly enlarged relative to adjacent bronchi. No interlobular septal thickeni ng. Musculoskeletal: Acute fractures of the posterior left 10th and 11th ribs, which are displaced. Addit ional nondisplaced fracture of the lateral left 10th rib. Suspected nondisplaced fractures of the lat eral left seventh and eighth ribs. Associated small foci of gas in the extrapleural space. Mild compr ession deformity of T12 with a suspected fracture plane. IMPRESSION: 1. Acute fractures of the left posterior lateral ninth through 11th ribs. Displaced fractures of the 10th and 11th ribs posteriorly. Suspected fractures of the lateral left seventh and eighth ribs. 2. Suspected acute compression fracture of T12. 3. No pneumothorax. 4. Left lower lobe lateral atelectasis. 5. Emphysema with lower lobe bronchitis or chronic aspiration. Electronically signed by: Phil Matamoros M.D. 02/21/2019 11:39 AM
--- NOTE | 2019-02-21 11:42 | CT Scan Report ---
ABDOMEN AND PELVIS CT WITH IV CONTRAST CT DOSE: 1269.43 mGy.cm HISTORY: Acute abdominal trauma status post fall with abdominal distention. fall abd distension TECHNIQUE: Multiaxial CT images of the abdomen and pelvis were performed following the use of intrave nous contrast. A dose lowering technique was utilized adhering to the principles of ALARA. COMPARISON STUDY: Chest CT of same day, chest radiograph 11/02/2018. FINDINGS: There is a small left-sided hemothorax with subsegmental left basilar consolidation suggestive of ate lectasis. Mild bibasilar bronchial wall thickening with mild mucous plugging. Limited exam secondary to respiratory motion and upper extremity positioning. No pneumatosis or pneumoperitoneum. Imaged inf erior cardiac chambers are unremarkable. No pericardial effusion. Gallbladder, spleen, pancreas, live r and adrenal glands are unremarkable. Kidneys and ureters are within normal limits. No renal or uret eral calculi or obstructive uropathy. Moderate to extensive circumferential wall thickening of the ur inary bladder with mucosal hyperemia and perivesicular stranding. Thickening of the fundal endometriu m, 9 mm. No adnexal mass lesions. Extensive calcified plaque the abdominal aorta without aneurysm. No evidence of acute aortic injury or adenopathy. Small hiatal hernia. No bowel obstruction or bowel wall thickening. Moderate to extensive fecal reten tion about the colon. Appendix appears noninflamed. Diastases recti with small fat filled periumbilic al hernia. Deep tissue edema with a a few small foci of deep tissue air noted adjacent to acute later al left rib fractures. Suggestion of an acute nondisplaced fracture of the posterior left 12th rib. A cute mildly displaced fractures of the lateral left ninth rib and posterior left 10th and 11th ribs. 30% anterior endplate compression deformity of the T12 vertebral body without retropulsion appears ne w from 11/02/2018 and is likely acute. Acute nondisplaced fracture of the right ischial tuberosity. Ill -defined sclerosis of the right intertrochanteric region extending into the lesser trochanter compati ble with nondisplaced fracture. IMPRESSION: 1. Acute mildly displaced fractures of the lateral left ninth and posterior left 10th and 11th ribs w ith probable acute nondisplaced fracture of the posterior left 12th rib. 2. Small left-sided hemothorax with left basilar atelectasis. 3. No evidence of pneumoperitoneum or acute solid organ injury. 4. 30% anterior endplate compression deformity of T12 without retropulsion, likely acute. 5. Acute nondisplaced fracture of the right ischial tuberosity. 6. Nondisplaced fracture of the intertrochanteric right femur, acute versus subacute. 7. Moderate to extensive wall thickening of the bladder suggestive of cystitis. Correlate with urinal ysis 8. Additional findings as above. Electronically signed by: Pilo Hill M.D. 02/21/2019 11:40 AM
[2019-02-21 13:19] LABS: Appearance Urine Cloudy (Clear); Bacteria Urine Automated Negative (Negative); Bilirubin Urine Negative (Negative); Blood Urine 1+ (Negative); Color Urine Yellow; Epithelial Cell Urine Auto 0-5 /lpf (0-5); Glucose Urine UA Negative (Negative); Ketones Urine Negative (Negative); Leukocyte Esterase Urine 3+ (Negative); Nitrite Urine Negative (Negative); Protein Urine 1+ (Negative); Specific Gravity Urine 1.031 (1.000-1.030); Urobilinogen Urine Negative (Negative); WBC Urine Automated >30 /hpf (0-5)
--- NOTE | 2019-02-21 13:33 | XRay Report ---
XR hip RT min 2V HISTORY: 78 years-old Female hip fx acute right hip pain status post fall COMPARISON: CT abdomen and pelvis of same day TECHNIQUE: 3 views of the right hip FINDINGS: There is mild cortical irregularity noted about the superior aspect of the right femoral neck without corresponding fracture seen within this area on comparison CT of same day. The nondisplaced intertro chanteric fracture of the right femur is not definitively appreciated by radiograph. Mild lateral sof t tissue swelling. Mild right hip osteoarthritis. Acute nondisplaced fracture of the right ischial tu berosity is also not appreciated by plain film. Soft tissues are unremarkable. IMPRESSION: 1. Nondisplaced likely acute intertrochanteric fracture of the right femur described on CT study of s is not appreciated by radiograph. 2. Ill-defined cortical irregularity about the superior cortex of the femoral neck is noted without c orrelate fracture on the comparison CT study. This is likely secondary to normal cortex. The above report was generated using voice recognition software. It may contain grammatical, syntax o r spelling errors. Electronically signed by: Pilo Hill M.D. 02/21/2019 1:32 PM
--- NOTE | 2019-02-21 14:54 | History & Physical Report ---
Date of Service February 21, 2019 Assessment & Plan (1) Fall: Uncertain etiology, likely mechanical Imaging as noted CT head neg for acute R hip fracture L rib fractures T12 compression fracture Ortho c/s pending, pt with hx of UOC Denies pain PT/OT when able, [facility] resident (2) Abnormal urine: + leuk est, neg nitrites CTAP noted for possible cystitis Urine cx pending Will start zosyn given above (3) Hyperlipidemia: continue home meds (4) Dementia: Pleasant, may need one to one (5) Impaired fasting glucose: Monitor No current DM medications (6) DVT prophylaxis: As per ortho History of Present Illness Primary Care Provider: [facility] 78 y/o F who was brought here from [facility]. Pt is a poor historian due to dementia. She has no memory of falling. Per ED physician, pt fell out of bed last night. Pt was noted to have pain today and was sent to the ED for evaluation. Pt denies fever, SOB, chest pain, abd pain, n/v/c/d, LE pain or swelling. Of note: documentation from SNF suggests that pt was SOB and anxious at facility. Allergies Allergy/AdvReac Type Severity Reaction Status Date / Time lorazepam [From Ativan] AdvReac Difficulty Verified 02/21/19 11:14 Breathing Home Medications Home Medications Medication Instructions Recorded Confirmed Type furosemide 20 mg PO QAM 12/03/18 02/21/19 History potassium chloride 10 meq PO QAM 12/03/18 02/21/19 History acetaminophen 650 mg PO Q6H PRN 02/21/19 02/21/19 History albuterol sulfate 3 mg INHALATION Q4H PRN 02/21/19 02/21/19 History bisacodyl [Dulcolax (bisacodyl)] 10 mg WA DAILY PRN 02/21/19 02/21/19 History magnesium hydroxide [Milk of 30 ml PO DAILY PRN 02/21/19 02/21/19 History Magnesia] melatonin 1 mg PO HS 02/21/19 02/21/19 History ondansetron HCl 4 mg PO Q6H PRN 02/21/19 02/21/19 History polyethylene glycol 3350 [Miralax] 17 g PO DAILY 02/21/19 02/21/19 History sodium phosphates [Fleet Enema] 118 ml WA DAILY PRN 02/21/19 02/21/19 History venlafaxine 37.5 mg PO QAM 02/21/19 02/21/19 History Past Med/Surg History Medical History Thyroid nodule (Acute) Personal history of tobacco use (Acute) Nicotine dependence (Acute) Impaired fasting glucose (Acute) Hyperlipidemia (Acute) Allergic rhinitis (Acute) Dementia History of wrist fracture Family History Unknown Diabetes Social History Preferred Language: Bengali Communication Ability: Impaired 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 Beliefs That Will Affect Care: None Current Living Situation: Alone Current Living Situation Comment: Lives byself; intermittent caregivers current occupational status: retired Feels Safe at Home: Yes Smoking Status: Former smoker Second Hand Exposure: No ; Hx Alcohol Use: No Hx Substance Use: No Review of Systems Review of Systems: Pertinent positives and negatives reviewed in HPI--all others negative Physical Exam Constitutional: WD/WN, vitals as above Eyes: normal visual lutz by confrontation and + anicteric sclerae Neck: normal visual inspection and trachea midline Respiratory: normal respiratory effort, lungs clear to auscultation Cardiovascular: Rate/Rhythm: regular rate and regular rhythm Gastrointestinal (Abdomen): Inspection/Auscultation: abdomen not distended Percussion/Palpation: abdomen soft; abdomen nontender Musculoskeletal: Head/Neck/Chest: normocephalic and head atraumatic negative for edema, peripheral pulses intact Skin: no rashes, warm and dry Neurologic: awake and + confused Speech / Cognition: normal speech Psychiatric: Orientation: oriented to person and cooperative; + not oriented to place and + not oriented to time Speech: normal rate/rhythm/volume of speech Affect: euthymic affect Results & Data Vital Signs (Past 12 Hours) Vital Signs Temp Pulse Pulse Resp BP BP Pulse Ox 02/21/19 13:50 102 H 23 98 02/21/19 13:40 95 H 21 100 02/21/19 13:31 96 H 24 99 02/21/19 13:30 96 H 22 112/85 100 02/21/19 13:20 101 H 29 H 98 02/21/19 13:00 105 H 23 126/76 99 02/21/19 12:50 106 H 27 H 96 02/21/19 12:40 110 H 30 H 96 02/21/19 12:30 104 H 24 117/64 98 02/21/19 12:20 100 H 22 02/21/19 12:10 102 H 24 02/21/19 12:00 99 H 24 106/58 L 02/21/19 11:50 102 H 25 H 93 02/21/19 11:40 103 H 26 H 95 02/21/19 11:30 100 H 24 118/68 98 02/21/19 11:24 98 H 20 130/66 95 02/21/19 11:21 102 H 26 H 130/66 02/21/19 11:20 99 H 27 H 02/21/19 10:40 101 H 29 H 02/21/19 10:30 103 H 31 H 130/84 02/21/19 10:23 99 H 20 95 02/21/19 10:20 102 H 20 99 02/21/19 10:17 37.5 C 104 H 24 125/80 93 02/21/19 10:15 108 H 17 125/[address] head: neg for acute CT chest, AP: L 9-11 rib fractures with 10-11 being displaced, T12 compression fracture R hipXR: nondisplaced hip fracture CTAP: Possible cystitis Code Status & VTE Plan Code Status Full code per documentation from [facility] VTE Prophylaxis Plan VTE Prophylaxis will be ordered: Yes PG Care Time/CCT Total # of Minutes Spent Total Time Spent with Patient: Total time spent is greater than 50% in coordination of care (as documented) at patient's floor/unit and/or counseling patient:
--- NOTE | 2019-02-21 16:06 | Emergency Department Note ---
Entered by Lupillo Ellison acting as a scribe for History of Present Illness General Chief complaint: Fall Source: patient History of Present Illness Provider complaint: Fall Onset (ago): hour(s) 4 Location: left (Ribs) and right (Ribs) Pain Consistency: + constant and + other (Episodic) Relieved By: + none Exacerbated By: + none Associated symptoms: + shortness of breath The patient is a 78 year old female who presents to the Emergency Room from [facility] with complaints of constant bilateral rib pain that started this morning after rolling out of her bed about 4 hours ago, per EMS. EMS reports that the bed is about 1.5 feet off the ground and she landed on her left side. The patient has a history of dementia and states she does not remember the incident. The patient woke up this morning to eat breakfast however shortly after she became tachypneic and was still in pain so EMS was called. The patient has a history of CHF and does not wear oxygen at baseline. HPI is limited secondary to patient dementia. Home Medications Home Medications Medication Instructions Recorded Confirmed Type furosemide 20 mg PO QAM 12/03/18 02/21/19 History potassium chloride 10 meq PO QAM 12/03/18 02/21/19 History acetaminophen 650 mg PO Q6H PRN 02/21/19 02/21/19 History albuterol sulfate 3 mg INHALATION Q4H PRN 02/21/19 02/21/19 History bisacodyl [Dulcolax (bisacodyl)] [address] DAILY PRN 02/21/19 02/21/19 History magnesium hydroxide [Milk of 30 ml PO DAILY PRN 02/21/19 02/21/19 History Magnesia] melatonin 1 mg PO HS 02/21/19 02/21/19 History ondansetron HCl 4 mg PO Q6H PRN 02/21/19 02/21/19 History polyethylene glycol 3350 [Miralax] 17 g PO DAILY 02/21/19 02/21/19 History sodium phosphates [Fleet Enema] [address] DAILY PRN 02/21/19 02/21/19 History venlafaxine 37.5 mg PO QAM 02/21/19 02/21/19 History Allergies Allergy/AdvReac Type Severity Reaction Status Date / Time lorazepam [From Ativan] AdvReac Difficulty Verified 02/21/19 11:14 Breathing Past Med/Surg History Medical History Thyroid nodule (Acute) Personal history of tobacco use (Acute) Nicotine dependence (Acute) Impaired fasting glucose (Acute) Hyperlipidemia (Acute) Allergic rhinitis (Acute) Dementia History of wrist fracture Family History Unknown Diabetes Social History Preferred Language: Togolese Communication Ability: Dementia Library Serials Assistant Required: No Beliefs That Will Affect Care: None Current Living Situation: [facility] Current Living Situation Comment: Lives byself; intermittent caregivers current occupational status: retired Feels Safe at Home: Yes Smoking Status: Former smoker Second Hand Exposure: No ; Hx Alcohol Use: No Hx Substance Use: No Review of Systems See HPI for pertinent positives & negatives. Other (Limited secondary to dementia ) Physical Exam Vital Signs Vital Signs - 24 hr 02/21/19 10:15 02/21/19 10:17 02/21/19 10:20 Temperature 37.5 C Temperature Source Oral Sepsis Recent Fever Within 48 Hours No Sepsis New/Unexplained Change in Mental Status No Sepsis Action Taken by Nursing No Action Required Pulse Rate 108 H 104 H 102 H Pulse Rate [Left] Pulse Rate from SpO2 Sensor 107 H 104 H 105 H Pulse Rhythm Regular Pulse Strength Normal Respiratory Rate 17 24 20 Respiratory Effort / Characteristics Non-Labored Spontaneous Respiratory Depth Normal Respiratory Pattern Regular Blood Pressure 125/80 125/80 Blood Pressure [Right Arm] Blood Pressure Mean 95 95 Blood Pressure Mean [Right Arm] Blood Pressure Position Sitting Pulse Oximetry 91 93 99 Oxygen Delivery Method Room Air Oxygen Flow Rate 02/21/19 10:23 02/21/19 10:30 02/21/19 10:40 Temperature Temperature Source Sepsis Recent Fever Within 48 Hours Sepsis New/Unexplained Change in Mental Status Sepsis Action Taken by Nursing Pulse Rate 99 H 103 H 101 H Pulse Rate [Left] Pulse Rate from SpO2 Sensor Pulse Rhythm Regular Pulse Strength Respiratory Rate 20 31 H 29 H Respiratory Effort / Characteristics Respiratory Depth Respiratory Pattern Blood Pressure 130/84 Blood Pressure [Right Arm] Blood Pressure Mean 99 Blood Pressure Mean [Right Arm] Blood Pressure Position Pulse Oximetry 95 Oxygen Delivery Method Nasal Cannula Oxygen Flow Rate 2 02/21/19 11:20 02/21/19 11:21 02/21/19 11:24 Temperature Temperature Source Sepsis Recent Fever Within 48 Hours Sepsis New/Unexplained Change in Mental Status Sepsis Action Taken by Nursing Pulse Rate 99 H 102 H Pulse Rate [Left] 98 H Pulse Rate from SpO2 Sensor Pulse Rhythm Pulse Strength Respiratory Rate 27 H 26 H 20 Respiratory Effort / Characteristics Respiratory Depth Respiratory Pattern Blood Pressure 130/66 Blood Pressure [Right Arm] 130/66 Blood Pressure Mean 87 Blood Pressure Mean [Right Arm] 87 Blood Pressure Position Pulse Oximetry 95 Oxygen Delivery Method Nasal Cannula Oxygen Flow Rate 1.5 02/21/19 11:30 02/21/19 11:40 02/21/19 11:50 Temperature Temperature Source Sepsis Recent Fever Within 48 Hours Sepsis New/Unexplained Change in Mental Status Sepsis Action Taken by Nursing Pulse Rate 100 H 103 H 102 H Pulse Rate [Left] Pulse Rate from SpO2 Sensor 100 H 104 H 102 H Pulse Rhythm Pulse Strength Respiratory Rate 24 26 H 25 H Respiratory Effort / Characteristics Respiratory Depth Respiratory Pattern Blood Pressure 118/68 Blood Pressure [Right Arm] Blood Pressure Mean 84 Blood Pressure Mean [Right Arm] Blood Pressure Position Pulse Oximetry 98 95 93 Oxygen Delivery Method Oxygen Flow Rate 02/21/19 12:00 02/21/19 12:10 02/21/19 12:20 Temperature Temperature Source Sepsis Recent Fever Within 48 Hours Sepsis New/Unexplained Change in Mental Status Sepsis Action Taken by Nursing Pulse Rate 99 H 102 H 100 H Pulse Rate [Left] Pulse Rate from SpO2 Sensor Pulse Rhythm Pulse Strength Respiratory Rate 24 24 22 Respiratory Effort / Characteristics Respiratory Depth Respiratory Pattern Blood Pressure 106/58 L Blood Pressure [Right Arm] Blood Pressure Mean 74 Blood Pressure Mean [Right Arm] Blood Pressure Position Pulse Oximetry Oxygen Delivery Method Oxygen Flow Rate 02/21/19 12:30 02/21/19 12:40 02/21/19 12:50 Temperature Temperature Source Sepsis Recent Fever Within 48 Hours Sepsis New/Unexplained Change in Mental Status Sepsis Action Taken by Nursing Pulse Rate 104 H 110 H 106 H Pulse Rate [Left] Pulse Rate from SpO2 Sensor 104 H 110 H 106 H Pulse Rhythm Pulse Strength Respiratory Rate 24 30 H 27 H Respiratory Effort / Characteristics Respiratory Depth Respiratory Pattern Blood Pressure 117/64 Blood Pressure [Right Arm] Blood Pressure Mean 81 Blood Pressure Mean [Right Arm] Blood Pressure Position Pulse Oximetry 98 96 96 Oxygen Delivery Method Oxygen Flow Rate 02/21/19 13:00 02/21/19 13:20 02/21/19 13:30 Temperature Temperature Source Sepsis Recent Fever Within 48 Hours Sepsis New/Unexplained Change in Mental Status Sepsis Action Taken by Nursing Pulse Rate 105 H 101 H 96 H Pulse Rate [Left] Pulse Rate from SpO2 Sensor 102 H 98 H 95 H Pulse Rhythm Pulse Strength Respiratory Rate 23 29 H 22 Respiratory Effort / Characteristics Respiratory Depth Respiratory Pattern Blood Pressure 126/76 112/85 Blood Pressure [Right Arm] Blood Pressure Mean 92 94 Blood Pressure Mean [Right Arm] Blood Pressure Position Pulse Oximetry 99 98 100 Oxygen Delivery Method Oxygen Flow Rate 02/21/19 13:31 02/21/19 13:40 02/21/19 13:50 Temperature Temperature Source Sepsis Recent Fever Within 48 Hours Sepsis New/Unexplained Change in Mental Status Sepsis Action Taken by Nursing Pulse Rate 96 H 95 H 102 H Pulse Rate [Left] Pulse Rate from SpO2 Sensor 96 H 96 H 102 H Pulse Rhythm Pulse Strength Respiratory Rate 24 21 23 Respiratory Effort / Characteristics Respiratory Depth Respiratory Pattern Blood Pressure Blood Pressure [Right Arm] Blood Pressure Mean Blood Pressure Mean [Right Arm] Blood Pressure Position Pulse Oximetry 99 100 98 Oxygen Delivery Method Oxygen Flow Rate 02/21/19 14:00 02/21/19 14:10 02/21/19 14:20 Temperature Temperature Source Sepsis Recent Fever Within 48 Hours Sepsis New/Unexplained Change in Mental Status Sepsis Action Taken by Nursing Pulse Rate 100 H 103 H 103 H Pulse Rate [Left] Pulse Rate from SpO2 Sensor 100 H 100 H 103 H Pulse Rhythm Pulse Strength Respiratory Rate 22 24 24 Respiratory Effort / Characteristics Respiratory Depth Respiratory Pattern Blood Pressure 122/61 Blood Pressure [Right Arm] Blood Pressure Mean 81 Blood Pressure Mean [Right Arm] Blood Pressure Position Pulse Oximetry 95 93 93 Oxygen Delivery Method Room Air Room Air Room Air Oxygen Flow Rate 02/21/19 14:30 02/21/19 14:40 Temperature Temperature Source Sepsis Recent Fever Within 48 Hours Sepsis New/Unexplained Change in Mental Status Sepsis Action Taken by Nursing Pulse Rate 99 H 95 H Pulse Rate [Left] Pulse Rate from SpO2 Sensor 98 H 96 H Pulse Rhythm Pulse Strength Respiratory Rate 27 H 24 Respiratory Effort / Characteristics Respiratory Depth Respiratory Pattern Blood Pressure 119/66 Blood Pressure [Right Arm] Blood Pressure Mean 83 Blood Pressure Mean [Right Arm] Blood Pressure Position Pulse Oximetry 90 90 Oxygen Delivery Method Room Air Room Air Oxygen Flow Rate Vital signs reviewed. General: Elderly-appearing 78 year old female on [place] oxygen. HEENT: No scleral icterus, PERRLA, neck supple. No obviously head trauma. Cardiovascular: Regular rate and rhythm, no extra sounds. Pulmonary: Coarse breath sounds bilaterally. Clear to auscultation bilaterally, normal work of breathing. Abdomen: Soft, nontender,distended with positive tympani, positive bowel sounds. Musculoskeletal: No peripheral edema. Tender to palpation of the bilateral anterior ribs. Non tender C spine. Neurologic: Patient awake alert and unable to answer most questions appropriately. Patient is able to follow simple commands. Skin: Warm, dry, no rash Course 1017: Past medical records reviewed. The patient was evaluated in room A02, and a complete history and physical examination were performed. 1340: I reevaluated and updated the patient on results obtained thus far. We also discussed the treatment plan and she fully agrees. 1350: I spoke to Dr. Diaz [facility] Hospitalist about the patient's case. She will be accepting the patient for further evaluation. Consultations Consultation #1: I spoke to Dr. Joe Ewing [facility] Hospitalist about the patient's case. She will be accepting the patient for further evaluation. Time: 13:50 Administered Medications Furosemide (Lasix) 20 mg PO QAM [facility] Stop: 03/24/19 08:59 Last Admin: 02/22/19 09:33 Dose: Not Given Documented by: [id number] Piperacillin Sod/Tazobactam (Sod 3.375 gm/ Dextrose) 115 mls @ 28.75 mls/hr IV Q8H [facility]; Protocol Stop: 03/03/19 20:59 Last Infusion: 02/22/19 09:25 Dose: 0 mls/hr Documented by: [id number] Admin: 02/22/19 05:22 Dose: 28.8 mls/hr Documented by: [id number] Infusion: 02/22/19 00:35 Dose: 0 mls/hr Documented by: [id number] Admin: 02/21/19 20:35 Dose: 28.8 mls/hr Documented by: [id number] Ioversol (Optiray 320 100ml) 93 ml IV ONCE PRN PRN Reason: Interaction Checking Stop: 02/25/19 11:04 Last Admin: 02/21/19 11:06 Dose: 93 ml Documented by: [id number] Polyethylene Glycol (Miralax Powder Packet) 17 gm PO DAILY [facility] Stop: 03/24/19 08:59 Last Admin: 02/22/19 09:32 Dose: Not Given Documented by: [id number] Potassium Chloride (Klor-Con M10) 10 meq PO QAM [facility] Stop: 03/24/19 08:59 Last Admin: 02/22/19 09:32 Dose: Not Given Documented by: [id number] Venlafaxine HCl (Effexor) 37.5 mg PO QAM [facility] Stop: 03/24/19 08:59 Last Admin: 02/22/19 09:32 Dose: Not Given Documented by: [id number] Discontinued Medications Sodium Chloride (Nss 1000ml) 1,000 mls @ 100 mls/hr IV .Q10H [facility] Stop: 02/21/19 20:29 Last Infusion: 02/21/19 20:14 Dose: 0 mls/hr Documented by: [id number] Admin: 02/21/19 11:22 Dose: 100 mls/hr Documented by: [id number] Piperacillin Sod/Tazobactam (Sod 3.375 gm/ Dextrose) 115 mls @ 230 mls/hr IV ONE ONE; Protocol Stop: 02/21/19 16:44 Last Infusion: 02/21/19 19:10 Dose: 0 mls/hr Documented by: [id number] Admin: 02/21/19 16:56 Dose: 230 mls/hr Documented by: [id number] Miscellaneous (Patient's Height And/Or Weight Needed) 1 ea N/A Q30M [facility] Stop: 03/23/19 16:29 Last Admin: 02/21/19 19:25 Dose: Not Given Documented by: [id number] Admin: 02/21/19 19:25 Dose: Not Given Documented by: [id number] Admin: 02/21/19 19:24 Dose: Not Given Documented by: [id number] Admin: 02/21/19 17:53 Dose: 1 ea Documented by: [id number] Medical Decision Making Differential Diagnosis Differential diagnoses include major intracranial, cervical, spinal, thoracic, abdominal, pelvic and neurologic injury. Fracture, contusion, sprain, strain, laceration, abrasions included as well. Medical Records Attestation: I reviewed the patient's medical records. Home Medications Current Medication List: was personally reviewed by me Laboratory Data Attestation: I reviewed the patient's lab results. Result diagrams: 02/21/19 10:33 02/21/19 10:33 Lab Results 02/21/19 02/21/1919 Range/Units 10:33 10:33 10:38 WBC 14.02 H (4.8-10.8) K/uL RBC 4.13 L (4.2-5.4) M/uL Hgb 11.8 L (12.0-16.0) g/dL POC Hgb 12.2 (12.0-16.0) g/dl Hct 36.4 L (37-47) % POC Hct 36 L (37-47) % MCV 88.1 (80-100) fL MCH 28.6 (25-34) pg MCHC 32.4 (32-36) g/dL RDW Std Deviation 44.3 (36.4-46.3) fL RDW Coeff of Kimi 13.7 (11.5-14.5) % Plt Count 252 (130-400) K/uL MPV 8.8 (7.4-10.4) fL Immature Gran % (Auto) 0.8 % Neut % (Auto) 87.6 % Lymph % (Auto) 6.6 % [place] % (Auto) 4.6 % Eos % (Auto) 0.2 % Baso % (Auto) 0.2 % Immature Gran # (Auto) 0.11 H (0.00-0.02) K/uL Neut # (Auto) 12.28 H (1.4-6.5) K/uL Lymph # (Auto) 0.93 L (1.2-3.4) K/uL [place] # (Auto) 0.64 H (0.11-0.59) K/uL Eos # (Auto) 0.03 (0-0.5) K/uL Baso # (Auto) 0.03 (0-0.2) K/uL POC Sodium 141 (135-144) mEq/L Sodium 141 (136-145) mmol/L POC Potassium 3.6 (3.3-5.0) mEq/L Potassium 3.6 (3.5-5.1) mmol/L POC Chloride 101 (101-112) mEq/L Chloride 105 (98-107) mmol/L Carbon Dioxide 30 (21-32) mmol/L POC Total CO2 26 (24-31) mEq/l Anion Gap 6.0 (3-11) POC Anion Gap 18.0 (16-25) mmol/L POC BUN 20 H (7-18) mg/dl BUN 21 H (7-18) mg/dl Creatinine 0.93 (0.6-1.2) mg/dl POC Creatinine 0.8 (0.6-1.3) mg/dl Est Cr Clr Drug Dosing Not Reportable Est GFR ( Amer) 67.7 Est GFR (Non-Af Amer) 58.5 BUN/Creatinine Ratio 22.4 H (10-20) Glucose 120 H (70-99) mg/dl POC Glucose (other) 124 H (70-99) mg/dl Calcium 9.3 (8.5-10.1) mg/dl POC Ioniz Calcium Eric 1.21 (1.12-1.32) mmol/l Total Bilirubin 0.3 (0.2-1) mg/dl AST 22 (15-37) U/L ALT 27 (12-78) U/L Alkaline Phosphatase 108 (45-117) U/L Troponin I < 0.015 (0-0.045) ng/ml Total Protein 7.6 (6.4-8.2) gm/dl Albumin 3.2 L (3.4-5.0) gm/dl Globulin 4.4 H (2.5-4.0) gm/dl Albumin/Globulin Ratio 0.7 L (0.9-2) Urine Color Urine Appearance (Clear) Urine pH (4.5-7.5) Ur Specific [place] (1.000-1.030) Urine Protein (Negative) Urine Glucose (UA) (Negative) Urine Ketones (Negative) Urine Blood (Negative) Urine Nitrite (Negative) Urine Bilirubin (Negative) Urine Urobilinogen (Negative) Ur Leukocyte Esterase (Negative) Urine WBC (Auto) (0-5) /hpf Urine RBC (Auto) (0-4) /hpf U Hyaline Cast (Auto) (0-5) /lpf U Epithel Cells (Auto) (0-5) /lpf Urine Bacteria (Auto) (Negative) 02/21/19 Range/Units 12:51 WBC (4.8-10.8) K/uL RBC (4.2-5.4) M/uL Hgb (12.0-16.0) g/dL POC Hgb (12.0-16.0) g/dl Hct (37-47) % POC Hct (37-47) % MCV (80-100) fL MCH (25-34) pg MCHC (32-36) g/dL RDW Std Deviation (36.4-46.3) fL RDW Coeff of Kimi (11.5-14.5) % Plt Count (130-400) K/uL MPV (7.4-10.4) fL Immature Gran % (Auto) % Neut % (Auto) % Lymph % (Auto) % [place] % (Auto) % Eos % (Auto) % Baso % (Auto) % Immature Gran # (Auto) (0.00-0.02) K/uL Neut # (Auto) (1.4-6.5) K/uL Lymph # (Auto) (1.2-3.4) K/uL [place] # (Auto) (0.11-0.59) K/uL Eos # (Auto) (0-0.5) K/uL Baso # (Auto) (0-0.2) K/uL POC Sodium (135-144) mEq/L Sodium (136-145) mmol/L POC Potassium (3.3-5.0) mEq/L Potassium (3.5-5.1) mmol/L POC Chloride (101-112) mEq/L Chloride (98-107) mmol/L Carbon Dioxide (21-32) mmol/L POC Total CO2 (24-31) mEq/l Anion Gap (3-11) POC Anion Gap (16-25) mmol/L POC BUN (7-18) mg/dl BUN (7-18) mg/dl Creatinine (0.6-1.2) mg/dl POC Creatinine (0.6-1.3) mg/dl Est Cr Clr Drug Dosing Est GFR ( Amer) Est GFR (Non-Af Amer) BUN/Creatinine Ratio (10-20) Glucose (70-99) mg/dl POC Glucose (other) (70-99) mg/dl Calcium (8.5-10.1) mg/dl POC Ioniz Calcium Eric (1.12-1.32) mmol/l Total Bilirubin (0.2-1) mg/dl AST (15-37) U/L ALT (12-78) U/L Alkaline Phosphatase (45-117) U/L Troponin I (0-0.045) ng/ml Total Protein (6.4-8.2) gm/dl Albumin (3.4-5.0) gm/dl Globulin (2.5-4.0) gm/dl Albumin/Globulin Ratio (0.9-2) Urine Color Yellow Urine Appearance Cloudy A (Clear) Urine pH 6.0 (4.5-7.5) Ur Specific [place] 1.031 H (1.000-1.030) Urine Protein 1+ H (Negative) Urine Glucose (UA) Negative (Negative) Urine Ketones Negative (Negative) Urine Blood 1+ H (Negative) Urine Nitrite Negative (Negative) Urine Bilirubin Negative (Negative) Urine Urobilinogen Negative (Negative) Ur Leukocyte Esterase 3+ H (Negative) Urine WBC (Auto) >30 H (0-5) /hpf Urine RBC (Auto) 5-10 H (0-4) /hpf U Hyaline Cast (Auto) 1-5 (0-5) /lpf U Epithel Cells (Auto) 0-5 (0-5) /lpf Urine Bacteria (Auto) Negative (Negative) Imaging Data Radiologist's Impression: Radiology results as stated below per my review and the radiologist's interpretation: HEAD CT NONCONTRAST CT DOSE: HISTORY: fall from bed TECHNIQUE: Multiaxial CT images of the head were performed without the use of intravenous contrast. Automated exposure control was utilized for this study. A dose lowering technique was utilized adhering to the principles of ALARA. Comparison: Head CT 12/03/2018. Findings: Old, healed nasal bone fractures. The nasal sinuses and mastoid air cells are clear. The calvarium and skull base are intact. There is no mass, hematoma, midline shift, acute infarct. White matter hypodensity is nonspecific but suggestive of microvascular ischemic change. The ventricles and sulci demonstrate mild age-related involutional changes. Impression: No significant change compared to the prior study. No acute intracranial abnormality. Electronically signed by: Christiano Rios M.D. 02/21/2019 11:[address] chest w con CLINICAL HISTORY: 78 years-old Female presenting with fall, right rib pain, hypoxia. TECHNIQUE: Multidetector CT imaging of the chest was performed after the administration of intravenous contrast. IV contrast: 93 mL Optiray 320. One or more dose lowering techniques were used consistent with the principles of ALARA (as low as reasonably achievable), including automatic exposure control, mA or kV adjustment to individual patient size, and/or use of iterative reconstruction. COMPARISON: 11/11/2016. CT DOSE (mGy.cm): The estimated cumulative dose is 1269.43. FINDINGS: Chef'S Assistant topogram: Unremarkable. Soft tissues: Dominant nodule in the left lobe of the thyroid is unchanged. No a xillary, supraclavicular, mediastinal, or hilar lymphadenopathy. Atherosclerosis of the aorta. Normal heart size. Coronary artery calcification. No pericardial or pleural effusion. Small to moderate hiatal hernia. Lungs and airways: No pneumothorax. Bronchial wall thickening and subsegmental bronchial debris noted in the lower lobes, left greater than right. Dependent consolidation and volume loss in the left lower lobe, likely extensive atelectasis. Moderate upper lobe predominant centrilobular emphysema. Punctate solid nodule in the right upper lobe (series 6 image 107). No other focal infi ltrate.. Pulmonary arteries are not significantly enlarged relative to adjacent bronchi. No interlobular septal thickening. Musculoskeletal: Acute fractures of the posterior left 10th and 11th ribs, which are displaced. Additional nondisplaced fracture of the lateral left 10th rib. Suspected nondisplaced fractures of the lateral left seventh and eighth ribs. Associated small foci of gas in the extrapleural space. Mild compression deformity of T12 with a suspected fracture plane. IMPRESSION: 1. Acute fractures of the left posterior lateral ninth through 11th ribs. Displaced fractures of the 10th and 11th ribs posteriorly. Suspected fractures of the lateral left seventh and eighth ribs. 2. Suspected acute compression fracture of T12. 3. No pneumothorax. 4. Left lower lobe lateral atelectasis. 5. Emphysema with lower lobe bronchitis or chronic aspiration. Electronically signed by: Phil Matamoros M.D. 02/21/2019 11:39 AM ABDOMEN AND PELVIS CT WITH IV CONTRAST CT DOSE: 1269.43 mGy.cm HISTORY: Acute abdominal trauma status post fall with abdominal distention. fall abd distension TECHNIQUE: Multiaxial CT images of the abdomen and pelvis were performed following the use of intravenous contrast. A dose lowering technique was utilized adhering to the principles of ALARA. COMPARISON STUDY: Chest CT of same day, chest radiograph 11/02/2018. FINDINGS: There is a small left-sided hemothorax with subsegmental left basilar consolidation suggestive of atelectasis. Mild bibasilar bronchial wall thickening with mild mucous plugging. Limited exam secondary to respiratory motion and upper extremity positioning. No pneumatosis or pneumoperitoneum. Imaged inferior cardiac chambers are unremarkable. No pericardial effusion. Gallbladder, spleen, pancreas, liver and adrenal glands are unremarkable. Kidneys and ureters are within normal limits. No renal or ureteral calculi or obstructive uropathy. Moderate to extensive circumferential wall thickening of the urinary bladder with mucosal hyperemia and perivesicular stranding. Thickening of the fundal endometrium, 9 mm. No adnexal mass lesions. Extensive calcified plaque the abdominal aorta without aneurysm. No evidence of acute aortic injury or adenopathy. Small hiatal hernia. No bowel obstruction or bowel wall thickening. Moderate to extensive fecal retention about the colon. Appendix appears noninflamed. Diastases recti with small fat filled periumbilical hernia. Deep tissue edema wi th a a few small foci of deep tissue air noted adjacent to acute lateral left rib fractures. Suggestion of an acute nondisplaced fracture of the posterior left 12th rib. Acute mildly displaced fractures of the lateral left ninth rib and posterior left 10th and 11th ribs. 30% anterior endplate compression deformity of the T12 vertebral body without retropulsion appears new from 11/02/2018 and is likely acute. Acute nondisplaced fracture of the right ischial tuberosity. Ill-defined sclerosis of the right intertrochanteric region extending into the lesser trochanter compatible with nondisplaced fracture. IMPRESSION: 1. Acute mildly displaced fractures of the lateral left ninth and posterior left 10th and 11th ribs with probable acute nondisplaced fracture of the posterior left 12th rib. 2. Small left-sided hemothorax with left basilar atelectasis. 3. No evidence of pneumoperitoneum or acute solid organ injury. 4. 30% anterior endplate compression deformity of T12 without retropulsion, li madan acute. 5. Acute nondisplaced fracture of the right ischial tuberosity. 6. Nondisplaced fracture of the intertrochanteric right femur, acute versus subacute. 7. Moderate to extensive wall thickening of the bladder suggestive of cystitis. Correlate with urinalysis 8. Additional findings as above. Electronically signed by: Pilo Hill M.D. 02/21/2019 11:40 AM XR hip RT min 2V HISTORY: 78 years-old Female hip fx acute right hip pain status post fall COMPARISON: CT abdomen and pelvis of same day TECHNIQUE: 3 views of the right hip FINDINGS: There is mild cortical irregularity noted about the superior aspect of the right femoral neck without corresponding fracture seen within this area on comparison CT of same day. The nondisplaced intertrochanteric fracture of the right femur is not definitively appreciated by radiograph. Mild lateral soft tissue swelling. Mild right hip osteoarthritis. Acute nondisplaced fracture of the right ischial tuberosity is also not appreciated by plain film. Soft tissues are unremarkable. IMPRESSION: 1. Nondisplaced likely acute intertrochanteric fracture of the right femur described on CT study of same day is not appreciated by radiograph. 2. Ill-defined cortical irregularity about the superior cortex of the femoral neck is noted without correlate fracture on the comparison CT study. This is likely secondary to normal cortex. The above report was generated using voice recognition software. It may contain grammatical, syntax or spelling errors. Electronically signed by: Pilo Hill M.D. 02/21/2019 1:32 PM ECG Data Attestation: I personally reviewed and interpreted this ECG as follows: Indication: altered mental status Rate (beats per minute): 101 Rhythm: sinus tachycardia Findings: + other (Poor baseline for interpretation, QTC 448); no acute ischemic change Blood Pressure Blood Pressure Findings: Elevated blood pressure Blood Pressure Disposition: further management by hospitalist MDM Narrative This patient was evaluated and appeared to be in some discomfort. She was resting in bed with nasal cannula oxygen in place. Initially she was hypoxic on room air. The patient does have some dementia and is a poor historian. Patient's sister is at the bedside however she was not at the jail at the time of the fall. CT scan of the head is negative for intracranial abnormality, CT scan of the chest and abdomen reveal multiple left-sided rib fractures with a small hemothorax. There is a noted right hip fracture. A follow-up hip x-ray was performed and is read as above. Patient did not seem to be in any great distress if she was resting in bed. I did discuss the findings with the patient's sister at the bedside. Dr. Pulliam of thoracic surgery was notified of the patient and agreed to consult on her care. I did speak with the hospitalist, Dr. Diaz who agreed to evaluate the patient for admission and further management. Impression & Plan T12 compression fracture, Multiple fractures of ribs of left side, Closed fracture of right hip Discharge Plan Visit Data *Final* Discharge Date/Time: 02/21/19 15:30 Chief Complaint: Fall ED Provider: Janell Moralez Discharge Problem: T12 compression fracture, Multiple fractures of ribs of left side, Closed fracture of right hip Patient Disposition: Admitted As Inpatient Discharge Instructions Interventions: ED Discharge Assessment Last Done: 02/21/19 15:30 Discharge Problem: T12 compression fracture Qualifiers: Encounter type: initial encounter Qualified Code(s): S22.080A - Wedge compression fracture of T11-T12 vertebra, initial encounter for closed fracture Multiple fractures of ribs of left side Qualifiers: Encounter type: initial encounter Fracture type: closed Qualified Code(s): S22.42XA - Multiple fractures of ribs, left side, initial encounter for closed fracture Closed fracture of right hip Qualifiers: Encounter type: initial encounter Qualified Code(s): S72.001A - Fracture of unspecified part of neck of right femur, initial encounter for closed fracture The scribe's documentation has been prepared under my direction and personally reviewed by me in its entirety. I confirm that the note above accurately reflects all work, treatment, procedures, and medical decision making performed by me.
[2019-02-21] MEDS ORDERED: ACETAMINOPHEN 325 MG TAB PO PRN (16:08)
[2019-02-21] MEDS ORDERED: MAGNESIUM HYDROXIDE SUSP 30 ML UDC PO PRN ×2 (16:08)
[2019-02-21] MEDS ORDERED: SOD PHOSPHATE/SOD BIPHOSPHATE ENEMA 132 ML BTL PR PRN (16:08)
[2019-02-21] MEDS ORDERED: PIPERACILL/TAZOBAC CONSULT ACTIVE PRN (16:08)
[2019-02-21] MEDS ORDERED: ONDANSETRON INJ 2 MG/ML 2 ML VIAL IV PRN (16:08)
[2019-02-21] MEDS ORDERED: ONDANSETRON 4 MG TAB PO PRN (16:08)
[2019-02-21] MEDS ORDERED: BISACODYL 10 MG SUPP PR PRN (16:08)
[2019-02-21] MEDS ORDERED: PIPERACILLIN/TAZOBACTAM 4.5 GM in DEXTROSE 5% 100 ML IV STA (16:08)
[2019-02-21] MEDS ORDERED: PIPERACILLIN/TAZOBACTAM 3.375 GM in DEXTROSE 5% 100 ML IV ONE (16:15)
[2019-02-21] MEDS: PATIENT'S HEIGHT AND/OR WEIGHT NEEDED SCH ×3 (17:53→19:25)
[2019-02-21] MEDS: PIPERACILLIN/TAZOBACTAM 3.375 GM in DEXTROSE 5% 100 ML IV SCH (20:35)
[2019-02-21] MEDS ORDERED: NON-FORMULARY MEDICATION (Melatonin 1 MG) PO SCH (21:00)
--- NOTE | 2019-02-21 21:54 | Magnetic Resonance Report ---
Study: MRI right hip HISTORY: Fracture FINDINGS: Nondisplaced linear fracture intertrochanteric region right hip. Mild surrounding bone salbador ow edematous change. Muscular edematous change obturator internus. Signal characteristics of the remaining bony structures appear unremarkable. No evidence for acetabul ar protrusion. Mild soft tissue edematous change surrounding the right hip. IMPRESSION: 1. Nondisplaced intertrochanteric fracture right hip. 2. Mild surrounding soft tissue edematous change. 3. Edematous change and potential partial tear of the obturator internus muscle. Electronically signed by: Cesar Hoskins M.D. 02/21/2019 9:53 PM
[2019-02-22] MEDS: PIPERACILLIN/TAZOBACTAM 3.375 GM in DEXTROSE 5% 100 ML IV SCH ×3 (05:22→20:42)
--- NOTE | 2019-02-22 07:42 | XRay Report ---
XR femur RT 2V routine CLINICAL HISTORY: 78 years-old Female presenting with hip fx, trauma. TECHNIQUE: Frontal and lateral views of the right femur were obtained. COMPARISON: None. FINDINGS: Right hip joint and right knee joint congruent. Underlying osteopenia is suspected. No acute fracture or malalignment. No advanced degenerative change of the right hip joint, however, there is prominent osteophytosis in the lateral and patellofemoral compartments of the right knee joint. Visualized por tion of the bony pelvis is grossly intact. No radiographic soft tissue abnormality. IMPRESSION: No acute osseous injury or advanced degenerative change. Electronically signed by: Phil Matamoros M.D. 02/22/2019 7:40 AM
[2019-02-22] MEDS: VENLAFAXINE HCL 37.5 MG TAB PO SCH (09:32)
[2019-02-22] MEDS: POLYETHYLENE (MIRALAX) 17 GM PACK PO SCH (09:32)
[2019-02-22] MEDS: POTASSIUM CHLORIDE 10 MEQ TABCR PO SCH (09:32)
[2019-02-22] MEDS: FUROSEMIDE 20 MG TAB PO SCH (09:33)
[2019-02-22 10:24] LABS: Basophils # (auto) 0.04 K/uL (0-0.2); Basophils % (auto) 0.4 %; Eosinophils # (auto) 0.17 K/uL (0-0.5); Eosinophils % (auto) 1.5 %; Hematocrit (blood only) 31.9 % (37-47); Hemoglobin 10.3 g/dL (12.0-16.0); Immature Granulocytes # (auto) 0.04 K/uL (0.00-0.02); Immature Granulocytes % (auto) 0.4 %; Lymphocytes # (auto) 1.23 K/uL (1.2-3.4); Lymphocytes % (auto) 11.1 %; Mean Corpuscular Hemoglobin 28.3 pg (25-34); Mean Corpuscular Hgb Conc 32.3 g/dL (32-36); Mean Corpuscular Volume 87.6 fL (80-100); Mean Platelet Volume 8.6 fL (7.4-10.4); Monocytes # (auto) 0.58 K/uL (0.11-0.59); Monocytes % (auto) 5.2 %; Neutrophils # (auto) 9.03 K/uL (1.4-6.5); Neutrophils % (auto) 81.4 %; Platelet Count 178 K/uL (130-400); RDW Coefficient of Variation 13.9 % (11.5-14.5); RDW Standard Deviation 44.4 fL (36.4-46.3); Red Blood Count 3.64 M/uL (4.2-5.4); White Blood Count 11.09 K/uL (4.8-10.8)
[2019-02-22] MEDS: ACETAMINOPHEN 325 MG TAB PO PRN ×3 (10:25→21:16)
[2019-02-22 10:41] LABS: Creatinine Clr Calc Pharmacy 39.8 ml/min; Est GFR (African American) 62.1; Est GFR (Non-African American) 53.5
[2019-02-22 10:43] LABS: BUN Creatinine Ratio 15.2 (10-20); Calcium 8.7 mg/dl (8.5-10.1); Creatinine Clr Calc Pharmacy 39.8 ml/min; Est GFR (African American) 62.1; Est GFR (Non-African American) 53.5; Potassium 3.6 mmol/L (3.5-5.1)
[2019-02-22] MEDS ORDERED: PROPOFOL IV EMULSION 10 MG/ML 20 ML VIAL IV ONE ×2 (12:59→13:02)
[2019-02-22] MEDS ORDERED: fentaNYL citrate 100 MCG/2 ML VIAL ONE (13:02)
[2019-02-22] MEDS ORDERED: LIDOCAINE HCL 2% 2 ML VIAL/AMP(20MG/ML) INFIL ONE (13:02)
[2019-02-22] MEDS ORDERED: MIDAZOLAM HCL 1 MG/ML 2ML VIAL ONE (13:02)
--- NOTE | 2019-02-22 15:12 | Cardiology Consultation ---
Date of Consultation February 22, 2019 Assessment & Plan (1) Fall: I do not believe the details of her fall are known, I believe she fell out of bed and had pain subsequently. I do not have extensive cardiovascular studies but she has had a recent echocardiogram which is unremarkable and she has had a number of electrocardiograms both in November and this visit which show low grade sinus tachycardia with no other abnormality. Review of her vital signs this admission (she is not on telemetry) hows that her heart rate is around 100 on average and never terribly high, her blood pressure is approximately normal. I think it is very unlikely that a cardiac etiology would explain her fall. (2) Closed fracture of right hip: She has a hip fracture which I understand require surgery. If so I would proceed with surgery without any further cardiovascular tests. We have no indication that she has coronary artery disease, and she does not have left ventricular dysfunction or any significant arrhythmia that we have identified. History of Present Illness Reason for Consultation: Fall Attending Physician: Jeni Nathan MD History of Present Illness This is a 78-year-old woman who is a resident of [facility] with quite severe dementia. She can provide very little history although she will say no or yes to questions but cannot describe her symptoms in any kind of detail. She evidently fell out of bed, and she was in pain. Here she was observed to have a right hip fracture and surgery as planned. As near as I can tell from limited records that I have available she does not have any cardiac history and she does not have any cardiac symptoms that she can recall. I specifically asked her about chest pain or palpitations and she says no but I do not know if that is reliable. She did have an echocardiogram in October 2018 which was generally unremarkable. She has had a history of sinus tachycardia but that was during agitation. To my knowledge she has not had significant tachycardia in the past. She was seen for edema in October, that was after the echo was done and I do not believe there was a clear etiology for it. Allergies Allergy/AdvReac Type Severity Reaction Status Date / Time lorazepam [From Ativan] AdvReac Difficulty Verified 02/21/19 11:14 Breathing Home Medications Home Medications Medication Instructions Recorded Confirmed Type furosemide 20 mg PO QAM 12/03/18 02/21/19 History potassium chloride 10 meq PO QAM 12/03/18 02/21/19 History acetaminophen 650 mg PO Q6H PRN 02/21/19 02/21/19 History albuterol sulfate 3 mg INHALATION Q4H PRN 02/21/19 02/21/19 History bisacodyl [Dulcolax (bisacodyl)] 10 mg NM DAILY PRN 02/21/19 02/21/19 History magnesium hydroxide [Milk of 30 ml PO DAILY PRN 02/21/19 02/21/19 History Magnesia] melatonin 1 mg PO HS 02/21/19 02/21/19 History ondansetron HCl 4 mg PO Q6H PRN 02/21/19 02/21/19 History polyethylene glycol 3350 [Miralax] 17 g PO DAILY 02/21/19 02/21/19 History sodium phosphates [Fleet Enema] 118 ml NM DAILY PRN 02/21/19 02/21/19 History venlafaxine 37.5 mg PO QAM 02/21/19 02/21/19 History Patient History Medical History Thyroid nodule (Acute) Personal history of tobacco use (Acute) Nicotine dependence (Acute) Impaired fasting glucose (Acute) Hyperlipidemia (Acute) Allergic rhinitis (Acute) Dementia History of wrist fracture Family History Unknown Diabetes Social History Preferred Language: Slovenian Communication Ability: Impaired Tubing Oiler Required: No Beliefs That Will Affect Care: None marital status: / Current Living Situation: Half-Way Current Living Situation Comment: Lives byself; intermittent caregivers current occupational status: retired Feels Safe at Home: Yes Smoking Status: Former smoker Second Hand Exposure: No ; Hx Alcohol Use: No Hx Substance Use: No Physical Exam Physical Exam: Constitutional: Alert, cooperative and in intermittent distress which appears to be pain. Oriented x0 HEENT: Unremarkable Neck: No jugular venous distention, carotid pulses are normal and equal bilaterally without bruits. Pulmonary: Clear to auscultation bilaterally. Cardiac: Regular slightly fast rhythm with no murmur, gallop or rub. Abdomen: Soft, nontender with normal bowel sounds. Extremities: No edema. Distal pulses intact. Neurologic: No focal findings. Gait was not tested. Skin: No rash, ecchymoses or petechiae. Results & Data Vital Signs (Past 12 Hours) Vital Signs Temp Pulse Resp BP Pulse Ox 02/22/19 13:23 37.1 C 97 H 18 123/56 L 93 02/22/19 07:25 37 C 107 H 18 95 Diagnostic Findings She has had several electrocardiograms this visit, yesterday in the morning and this afternoon. Both show sinus tachycardia around 100 with no significant abnormality. She also had several electrocardiograms done December 03, 2018 and those showed similar findings. An echocardiogram was done on November 12, 2018 and this showed normal left ventricular size and function with no significant valvular abnormalities and no wall motion abnormalities. PG Care Time/CCT Total # of Minutes Spent Total Time Spent with Patient: Total time spent is greater than 50% in coordination of care (as documented) at patient's floor/unit and/or counseling patient: (1) Closed fracture of right hip Encounter type: initial encounter Qualified Code(s): S72.001A - Fracture of unspecified part of neck of right femur, initial encounter for closed fracture
--- NOTE | 2019-02-22 15:12 | Hospitalist Progress Note ---
Date of Service February 22, 2019 Assessment & Plan (1) Fall: Uncertain etiology, likely mechanical Imaging as noted CT head neg for acute R hip fracture L rib fractures T12 compression fracture Ortho c/s pending, pt with hx of UOC Denies pain PT/OT when able, [facility] resident Cardiac preop evaluation N.p.o. for hip surgery (2) Abnormal urine: + leuk est, neg nitrites CTAP noted for possible cystitis Urine cx pending Will start zosyn given above (3) Hyperlipidemia: continue home meds (4) Dementia: Pleasant, may need one to one (5) Impaired fasting glucose: Monitor No current DM medications (6) DVT prophylaxis: As per ortho Subjective Patient seen and examined at the bedside Patient seen and examined at the bedside. Patient is a poor historian, status post fall with multiple fractures of the ribs on the left side and right hip. Her WBC today is mildly elevated to 11.09. H&H 10.3/31.9. Patient has Alzheimer dementia. She is resting in bed. Poor response to questions but awake and alert. She is n.p.o. for the procedure today. Her BNP is 566 and she had an EKG sinus tachycardia without ST segment elevation or depression , consulted for preop cardiac evaluation. Review of Systems Review of Systems: All systems reviewed & are unremarkable except as noted in HPI & below Physical Exam Constitutional: WD/WN, vitals as above well developed and + frail appearing Eyes: PERRL, conjunctivae normal, anicteric sclerae ENMT: external ear and nose normal, oropharynx normal Neck: trachea midline, no thyromegaly Respiratory: normal respiratory effort, lungs clear to auscultation Chest (Breasts): normal inspection/palpation of breasts Additional Comments: Multiple bruises on the left chest Gastrointestinal (Abdomen): normal bowel sounds, soft, nontender, no hepatosplenomegaly Musculoskeletal: no cyanosis or clubbing, extremities motor strength 5/5 Skin: + dry skin Neurologic: patellar DTR's 2+ bilat, sensation intact Psychiatric: Difficult to evaluate patient definitely has Alzheimer dementia forgetful but alert and oriented. Results & Data Vital Signs (Past 12 Hours) Vital Signs Temp Pulse Resp BP Pulse Ox 02/22/19 13:23 37.1 C 97 H 18 123/56 L 93 02/22/19 07:25 37 C 107 H 18 95 PG Care Time/CCT Total # of Minutes Spent Total Time Spent with Patient: Total time spent is greater than 50% in coordination of care (as documented) at patient's floor/unit and/or counseling patient:
[2019-02-22] MEDS: ALBUTEROL 0.083% NEBU SOLN 3 ML VIAL INH PRN (15:55)
--- NOTE | 2019-02-22 16:14 | Orthopedic Consultation ---
Date of Consultation February 22, 2019 Assessment & Plan (1) Closed fracture of right hip: The patient has a nondisplaced right intertrochanteric hip fracture as seen on MRI and CT abdomen pelvis. I have indicated the patient for right hip cephalo-medullary nail. I discussed at length the risks, benefits, complications and alternatives to surgery with the patient's POA which include infection, blood clots, blood loss, injury to surrounding nerves, bone, vessels, soft tissue, arthrofibrosis, chronic pain, malunion, nonunion, failure of the implants, need for additional surgery, loss of limb and loss of life. Alternatives include no surgery which could result in worsening symptoms, di splacement of fracture, inability to ambulate. The patient's POA wish to proceed with surgical intervention. The patient was seen and examined in the preoperative holding area however due to incomplete clearances at that time Anesthesia and myself will postpone until all clearances obtained. Patient had not been seen by cardiology at this point. Due to clearances and OR availability the plan will be to proceed with surgery on 02/23/2019. n.p.o. after midnight Bedrest Nolen Pain control Hold anticoagulation History of Present Illness Reason for Consultation: Right intertrochanteric hip fracture Attending Physician: Jeni Nathan MD History of Present Illness The patient is a 78-year-old female who presented from nursing facility after a fall from bed and subsequent increasing in pain. Patient is a poor historian and the majority of the history was obtained through records and POA. Patient comfortable when seen in preoperative holding. She does become agitated and has increasing pain with examination of her extremities. Her pain is difficult to quantify secondary to mental status. No pain to Movement of her hip however severe pain to light touch . Allergies Allergy/AdvReac Type Severity Reaction Status Date / Time lorazepam [From Ativan] AdvReac Difficulty Verified 02/21/19 11:14 Breathing Home Medications Home Medications Medication Instructions Recorded Confirmed Type furosemide 20 mg PO QAM 12/03/18 02/21/19 History potassium chloride 10 meq PO QAM 12/03/18 02/21/19 History acetaminophen 650 mg PO Q6H PRN 02/21/19 02/21/19 History albuterol sulfate 3 mg INHALATION Q4H PRN 02/21/19 02/21/19 History bisacodyl [Dulcolax (bisacodyl)] 10 mg MT DAILY PRN 02/21/19 02/21/19 History magnesium hydroxide [Milk of 30 ml PO DAILY PRN 02/21/19 02/21/19 History Magnesia] melatonin 1 mg PO HS 02/21/19 02/21/19 History ondansetron HCl 4 mg PO Q6H PRN 02/21/19 02/21/19 History polyethylene glycol 3350 [Miralax] 17 g PO DAILY 02/21/19 02/21/19 History sodium phosphates [Fleet Enema] 118 ml MT DAILY PRN 02/21/19 02/21/19 History venlafaxine 37.5 mg PO QAM 02/21/19 02/21/19 History Patient History Medical History Thyroid nodule (Acute) Personal history of tobacco use (Acute) Nicotine dependence (Acute) Impaired fasting glucose (Acute) Hyperlipidemia (Acute) Allergic rhinitis (Acute) Dementia History of wrist fracture Family History Unknown Diabetes Social History Preferred Language: Estonian Communication Ability: Impaired Supervisor Dials Required: No Beliefs That Will Affect Care: None marital status: / Current Living Situation: Correction Current Living Situation Comment: Lives byself; intermittent caregivers current occupational status: retired Feels Safe at Home: Yes Smoking Status: Former smoker Second Hand Exposure: No ; Hx Alcohol Use: No Hx Substance Use: No Review of Systems Review of Systems: Unobtainable due to mental health condition Constitutional: as per Subjective / HPI Physical Exam Physical Exam: Limited secondary to dementia, Actively wiggles toes, +2 dorsalis pedis pulse, compartment soft nontender, skin overlying right hip clean dry and intact, increased tenderness to palpation diffusely with light touch. Constitutional: WD/WN, vitals as above Results & Data Vital Signs (Past 12 Hours) Vital Signs Temp Pulse Resp BP Pulse Ox 02/22/19 15:58 97 H 22 96 02/22/19 13:23 37.1 C 97 H 18 123/56 L 93 02/22/19 07:25 37 C 107 H 18 95 Diagnostic Findings XR femur RT 2V routine CLINICAL HISTORY: 78 years-old Female presenting with hip fx, trauma. TECHNIQUE: Frontal and lateral views of the right femur were obtained. COMPARISON: None. FINDINGS: Right hip joint and right knee joint congruent. Underlying osteopenia is suspected. No acute fracture or malalignment. No advanced degenerative change of the right hip joint, however, there is prominent osteophytosis in the lateral and patellofemoral compartments of the right knee joint. Visualized portion of the bony pelvis is grossly intact. No radiographic soft tissue abnormality. IMPRESSION: No acute osseous injury or advanced degenerative change. XR hip RT min 2V HISTORY: 78 years-old Female hip fx acute right hip pain status post fall COMPARISON: CT abdomen and pelvis of same day TECHNIQUE: 3 views of the right hip FINDINGS: There is mild cortical irregularity noted about the superior aspect of the right femoral neck without corresponding fracture seen within this area on comparison CT of same day. The nondisplaced intertrochanteric fracture of the right femur is not definitively appreciated by radiograph. Mild lateral soft tissue swelling. Mild right hip osteoarthritis. Acute nondisplaced fracture of the right ischial tuberosity is also not appreciated by plain film. Soft tissues are unremarkable. IMPRESSION: 1. Nondisplaced likely acute intertrochanteric fracture of the right femur described on CT study of same day is not appreciated by radiograph. 2. Ill-defined cortical irregularity about the superior cortex of the femoral neck is noted without correlate fracture on the comparison CT study. This is likely secondary to normal cortex. Study: MRI right hip HISTORY: Fracture FINDINGS: Nondisplaced linear fracture intertrochanteric region right hip. Mild surrounding bone marrow edematous change. Muscular edematous change obturator internus. Signal characteristics of the remaining bony structures appear unremarkable. No evidence for acetabular protrusion. Mild soft tissue edematous change surrounding the right hip. IMPRESSION: 1. Nondisplaced intertrochanteric fracture right hip. 2. Mild surrounding soft tissue edematous change. 3. Edematous change and potential partial tear of the obturator internus muscle. (1) Closed fracture of right hip Encounter type: initial encounter Qualified Code(s): S72.001A - Fracture of unspecified part of neck of right femur, initial encounter for closed fracture
[2019-02-22] MEDS ORDERED: SODIUM CHLORIDE 0.9% 1000ML 1,000 ML IV SCH (19:15)
[2019-02-23] MEDS: PIPERACILLIN/TAZOBACTAM 3.375 GM in DEXTROSE 5% 100 ML IV SCH (05:10)
[2019-02-23] MEDS ORDERED: SODIUM CHLORIDE 0.9% 1000ML 1,000 ML IV SCH (06:30)
[2019-02-23] MEDS: ACETAMINOPHEN 1,000 MG/100 ML VIAL IV PRN (06:35)
[2019-02-23 07:34] LABS: Basophils # (auto) 0.07 K/uL (0-0.2); Basophils % (auto) 0.6 %; Eosinophils # (auto) 0.35 K/uL (0-0.5); Eosinophils % (auto) 3.1 %; Hematocrit (blood only) 30.3 % (37-47); Hemoglobin 9.6 g/dL (12.0-16.0); Immature Granulocytes # (auto) 0.05 K/uL (0.00-0.02); Immature Granulocytes % (auto) 0.4 %; Lymphocytes # (auto) 1.39 K/uL (1.2-3.4); Lymphocytes % (auto) 12.1 %; Mean Corpuscular Hemoglobin 27.7 pg (25-34); Mean Corpuscular Hgb Conc 31.7 g/dL (32-36); Mean Corpuscular Volume 87.6 fL (80-100); Mean Platelet Volume 8.8 fL (7.4-10.4); Monocytes # (auto) 0.68 K/uL (0.11-0.59); Monocytes % (auto) 5.9 %; Neutrophils # (auto) 8.93 K/uL (1.4-6.5); Neutrophils % (auto) 77.9 %; Platelet Count 175 K/uL (130-400); RDW Coefficient of Variation 13.9 % (11.5-14.5); RDW Standard Deviation 44.8 fL (36.4-46.3); Red Blood Count 3.46 M/uL (4.2-5.4); White Blood Count 11.47 K/uL (4.8-10.8)
[2019-02-23 08:05] LABS: Albumin Level 2.5 gm/dl (3.4-5.0); Calcium 8.6 mg/dl (8.5-10.1); Creatinine Clr Calc Pharmacy 43.3 ml/min; Est GFR (African American) 68.6; Est GFR (Non-African American) 59.2; Potassium 3.5 mmol/L (3.5-5.1)
[2019-02-23 08:09] LABS: Albumin Globulin Ratio 0.6 (0.9-2); Bilirubin,Total 0.6 mg/dl (0.2-1); Globulin 3.9 gm/dl (2.5-4.0); Total Protein 6.4 gm/dl (6.4-8.2)
[2019-02-23] MEDS: VENLAFAXINE HCL 37.5 MG TAB PO SCH (08:14)
[2019-02-23] MEDS: FUROSEMIDE 20 MG TAB PO SCH (08:14)
[2019-02-23] MEDS: POTASSIUM CHLORIDE 10 MEQ TABCR PO SCH (08:14)
[2019-02-23] MEDS: POLYETHYLENE (MIRALAX) 17 GM PACK PO SCH (08:15)
[2019-02-23] MEDS ORDERED: BACITRACIN INJ 50,000 UNIT VIAL ONE (12:34)
[2019-02-23] MEDS ORDERED: BUPIVACAINE/EPINEPHRINE 0.5% MPF 1:200,000 30 ML VIAL ONE (12:34)
[2019-02-23] MEDS ORDERED: MoRPHine SULFATE 2 MG/ML CARP IV STA (13:05)
[2019-02-23] MEDS: CEFAZOLIN 1000MG 1,000 MG/7.5 ML SYR IV SCH ×2 (13:44→21:41)
[2019-02-23] MEDS ORDERED: GLYCOPYRROLATE 0.2 MG/ML VIAL ONE (14:01)
[2019-02-23] MEDS ORDERED: LIDOCAINE HCL 2% 2 ML VIAL/AMP(20MG/ML) INFIL ONE (14:01)
[2019-02-23] MEDS ORDERED: PROPOFOL IV EMULSION 10 MG/ML 20 ML VIAL IV ONE (14:01)
[2019-02-23] MEDS ORDERED: ROCURONIUM BROMIDE 10 MG/ML 5 ML VIAL ONE (14:01)
[2019-02-23] MEDS ORDERED: NEOSTIGMINE METHYLSULFATE 5 MG/5 ML SYR ONE (14:01)
[2019-02-23] MEDS ORDERED: KETAMINE HCL INJ 50 MG/ML 10 ML VIAL ONE (14:02)
--- NOTE | 2019-02-23 14:02 | Anesthesiology Consultation ---
Date of Service February 23, 2019 Assessment & Plan Chart Review Chart Review: Acceptable Risk for Surgery and Patient NOT seen in Pre Admission Testing Consults Requested none ASA ASA4 Proposed Anesthesia Anesthesia Type: General Anesthesia Line Insertion: Arterial line Risk / Benefits Reviewed With: PT / POA / Parent / Guardian, Accepts Plan and Informed Consent Obtained History Surgery Operation Date: 02/22/19 08:10 Proposed Procedures p Right Troch Nail - Bryce Villagomez MD Operation Date: 02/23/19 08:20 Proposed Procedures p Right Trochanteric Nailing - Don Mendoza DO Height/Weight Height: 5 ft 2 in Weight: 63.1 kg Allergies Allergy/AdvReac Type Severity Reaction Status Date / Time lorazepam [From Ativan] AdvReac Difficulty Verified 02/21/19 11:14 Breathing Medications Home Medications Medication Instructions Recorded Confirmed Last Taken furosemide 20 mg PO QAM 12/03/18 02/21/19 02/21/19 potassium chloride 10 meq PO QAM 12/03/18 02/21/19 02/21/19 acetaminophen 650 mg PO Q6H PRN 02/21/19 02/21/19 02/16/19 albuterol sulfate 3 mg INHALATION Q4H PRN 02/21/19 02/21/19 02/21/19 bisacodyl [Dulcolax (bisacodyl)] 10 mg OK DAILY PRN 02/21/19 02/21/19 Unknown magnesium hydroxide [Milk of 30 ml PO DAILY PRN 02/21/19 02/21/19 Unknown Magnesia] melatonin 1 mg PO HS 02/21/19 02/21/19 02/20/19 ondansetron HCl 4 mg PO Q6H PRN 02/21/19 02/21/19 Unknown polyethylene glycol 3350 [Miralax] 17 g PO DAILY 02/21/19 02/21/19 02/21/19 sodium phosphates [Fleet Enema] 118 ml OK DAILY PRN 02/21/19 02/21/19 Unknown venlafaxine 37.5 mg PO QAM 02/21/19 02/21/19 02/21/19 Active Medications Generic Name Dose Route Start Last Admin Trade Name Freq PRN Reason Stop Dose Admin Acetaminophen 650 mg 02/21/19 16:08 02/22/19 21:16 Tylenol PO 03/23/19 16:07 650 mg Q4H PRN Administration pain/fever Albuterol 3 mg 02/21/19 16:08 02/22/19 15:55 Ventolin 0.083% 2.5mg/3ml INH 03/23/19 16:07 2.5 mg Q4H PRN Administration Wheezing Furosemide 20 mg 02/22/19 09:00 02/23/19 08:14 Lasix PO 03/24/19 08:59 20 mg QAM KYMBERLY Administration Acetaminophen 1,000 mg in 100 mls @ 400 mls/hr 02/23/19 06:24 02/23/19 06:50 Ofirmev IV 03/25/19 06:23 Infused Q8H PRN Infusion Pain Sodium Chloride 1,000 mls @ 80 mls/hr 02/23/19 06:30 02/23/19 06:35 Nss 1000ml IV 02/23/19 18:59 80 mls/hr .[id number] KYMBERLY Administration Cefazolin Sodium 1,000 mg in 7.5 mls @ 2.5 mls/min 02/23/19 14:00 02/23/19 13:44 Ancef 1000mg IV 02/28/19 13:59 2.5 mls/min Q8 KYMBERLY Administration Protocol Ioversol 93 ml 02/21/19 11:05 02/21/19 11:06 Optiray 320 100ml IV 02/25/19 11:04 93 ml ONCE PRN Administration Interaction Checking Polyethylene Glycol 17 gm 02/22/19 09:00 02/23/19 08:15 Miralax Powder Packet PO 03/24/19 08:59 Not Given DAILY KYMBERLY Potassium Chloride 10 meq 02/22/19 09:00 02/23/19 08:14 Klor-Con M10 PO 03/24/19 08:59 10 meq QAM KYMBERLY Administration Venlafaxine HCl 37.5 mg 02/22/19 09:00 02/23/19 08:14 Effexor PO 03/24/19 08:59 37.5 mg QAM KYMBERLY Administration NPO Date Last Intake of Fluids: 02/22/19 Time Last Intake of Fluids: 18:00 Last Intake of Fluids Comment: swallow with tylenol Date Last Intake of Solids: 02/21/19 Time Last Intake of Solids: 18:00 Past Medical History Medical History Thyroid nodule (Acute) Personal history of tobacco use (Acute) Nicotine dependence (Acute) Impaired fasting glucose (Acute) Hyperlipidemia (Acute) Allergic rhinitis (Acute) Dementia ASCVD (arteriosclerotic cardiovascular disease) Anemia COPD (chronic obstructive pulmonary disease) Elevated coronary artery calcium score History of wrist fracture Exercise / Class Metabolic Activity III < 4 Walking/Shop/Light housework Past Family History Family History Unknown Diabetes Past Anesthesia History No Hx of Anesthesia Complications and No Family Hx of Anesthesia Complications History of PONV No Hx of PONV and No Hx of Motion Sickness Social History Smoking Status: Former smoker Do You Dip or Chew Tobacco: No Hx Alcohol Use: No Hx Substance Use: No substance use type: does not use Physical Exam Vital Signs Last Vital Signs Temp 37 C 02/23/19 14:17 Pulse 87 02/23/19 14:17 Resp 22 02/23/19 14:17 BP 98/49 L 02/23/19 14:17 Pulse Ox 93 02/23/19 14:17 ENMT Mouth: + edentulous Thyromental Distance: < 3.5 Finger Breadths Mallampati Class: II Neck normal visual inspection and trachea midline; neck extension not limited Respiratory normal respiratory effort Auscultation: lungs clear to auscultation bilaterally Cardiovascular Rate/Rhythm: regular rate and regular rhythm Heart Sounds: no murmur Vessels: no carotid bruit Musculoskeletal Spine: normal cervical ROM Neurologic moves all extremities Motor/Sensory: no sensory deficit Psychiatric Orientation: alert; + not oriented x 3 (pt. has dementia) Testing Laboratory Results 02/23/19 07:23 02/23/19 07:23 Urine Color Yellow 02/21/19 12:51 Urine Appearance Cloudy (Clear) A 02/21/19 12:51 Urine pH 6.0 (4.5-7.5) 02/21/19 12:51 Ur Specific [place] 1.031 (1.000-1.030) H 02/21/19 12:51 Urine Protein 1+ (Negative) H 02/21/19 12:51 Urine Glucose (UA) Negative (Negative) 02/21/19 12:51 Urine Ketones Negative (Negative) 02/21/19 12:51 Urine Nitrite Negative (Negative) 02/21/19 12:51 Ur Leukocyte Esterase 3+ (Negative) H 02/21/19 12:51 Urine WBC (Auto) >30 /hpf (0-5) H 02/21/19 12:51 Urine RBC (Auto) 5-10 /hpf (0-4) H 02/21/19 12:51 U Hyaline Cast (Auto) 1-5 /lpf (0-5) 02/21/19 12:51 U Epithel Cells (Auto) 0-5 /lpf (0-5) 02/21/19 12:51 Urine Bacteria (Auto) Negative (Negative) 02/21/19 12:51 02/21/19 12:51 Urine Culture - Final Urine,Clean Catch Proteus mirabilis Electrocardiogram Date: 02/22/19 Findings: + NSR @ (at 97)
[2019-02-23] MEDS ORDERED: ONDANSETRON INJ 2 MG/ML 2 ML VIAL ONE (14:07)
[2019-02-23] MEDS ORDERED: fentaNYL citrate 100 MCG/2 ML VIAL ONE (14:56)
--- NOTE | 2019-02-23 14:58 | History & Physical Bridge Note ---
Date of Service February 23, 2019 History & Physical Bridge Note I have examined the patient, reviewed the History & Physical and in the interval since the performance of the History & Physical I have noted the following changes of clinical significance: no changes noted
[2019-02-23] MEDS ORDERED: LABETALOL HCL IV 5 MG/ML 20ML IV PRN (15:05)
[2019-02-23] MEDS ORDERED: ONDANSETRON INJ 2 MG/ML 2 ML VIAL IV PRN (15:05)
[2019-02-23] MEDS ORDERED: PROMETHAZINE HCL 12.5 MG in SODIUM CHLORIDE 0.9% 50 ML IV PRN (15:05)
[2019-02-23] MEDS ORDERED: NALOXONE HCL 0.4 MG/1 ML VIAL/CARP IV PRN ×2 (15:05→18:18)
[2019-02-23] MEDS ORDERED: fentaNYL citrate 100 MCG/2 ML VIAL IV PRN (15:05)
[2019-02-23] MEDS ORDERED: ATROPINE SULFATE 0.1 MG/ML 10ML SYR IV PRN (15:05)
[2019-02-23] MEDS ORDERED: ePHEDrine sulfate 50 MG/ML AMP IV PRN (15:05)
--- NOTE | 2019-02-23 17:04 | Post Operative Brief Note ---
Immediate Post Op Note v1 Date of Surgery February 23, 2019 Pre & Post Diagnosis Operation Date: 02/23/19 08:20 Pre-Op Diagnosis: Intertrochanteric fracture of right hip nondisplaced Post-Op Diagnosis: intertrochanteric fracture of right hip nondisplaced Procedure Operation Date: 02/23/19 08:20 Actual Procedures Right intertrochanteric hip fracture, internal fixation with trochanteric femoral nail(Right) - Bryce Villagomez MD Surgeon Bryce Villagomez MD Supervisor Melt House Kartik HERNANDEZ Estimated Blood Loss 30 Findings Consistent with Post-Op Diagnosis Specimens None Anesthesia Type General Complications none Disposition Accompanied Patient To Recovery: No Disposition: Recovery Room Overlapping Procedure I was immediately available: during the entire case.
--- NOTE | 2019-02-23 17:13 | Operative Report ---
Post Operative Report Pre & Post Diagnosis Operation Date: 02/22/19 08:10 <No data on this case meets the specified criteria> Operation Date: 02/23/19 08:20 Pre-Op Diagnosis: Nondisplaced intertrochanteric fracture of right hip Post-Op Diagnosis: Nondisplaced intertrochanteric fracture of right hip Procedure Operation Date: 02/22/19 08:10 <No data on this case meets the specified criteria> Operation Date: 02/23/19 08:20 Actual Procedures p Right intertrochanteric hip fracture, internal fixation with trochanteric femoral nail(Right) - Bryce Villagomez MD Surgeon Bryce Villagomez MD Maintenance Manager Kartik HERNANDEZ Estimated Blood Loss 30 Findings Consistent with Post-Op Diagnosis Specimens None Drains None Anesthesia Type General Complications none Disposition Accompanied Patient To Recovery: No Disposition: Recovery Room Indications 78-year-old female with right hip nondisplaced intertrochanteric hip fracture only noted on CT scan and MRI. Questionable fracture on plain films but no clear fracture identified in the intertrochanteric region. I discussed the findings with her power of claims attorney and discussed the risks and benefits at length noted in the surgical consent. She was consented to proceed with the right hip surgery. Description of Procedure Patient is taken to the operating room and anesthetized under anesthesia. She was placed supine on a fracture table. The leg was placed into boot traction and the well leg was placed into a well-padded leg holding device in flexion and internal rotation. No reduction was required as the intertrochanteric fracture was anatomic. The right hip was sterilely prepped and draped in usual fashion using Chlora Prep. Fluoroscopy was used throughout the case to assist in the procedure. A lateral incision was made over the hip. The skin was incised sharply. The subcutaneous fat was divided down to the fascia. The fascia was divided longitudinally and the gluteus medius was split with a Booker elevator enough to identify the tip of the greater trochanter. A guidewire was placed under fluoroscopic guidance and then the drill was used to open up the canal. We chose an 11 millimeter ophelia. The insertion device was used to insert the ophelia and seated at the appropriate depth and then the second incision was made for the helical blade. The guide was placed and the guidewire was advanced under fluoroscopic guidance into the femoral neck and head. The guidewire placement was just below the mid line in the inferior third on the AP view and centrally aligned on the lateral view. The reamers were used and then the 11 x 85 millimeter helical blade from [employer] was impacted into the neck and head frag ent. The bone quality was excellent. The proximal locking screw was tightened. And then the guide for the distal locking screw was advanced to the bone and the drill used and the measurement taken. A 5 by 36 millimeter locking screws then placed with good fixation. X-rays were obtained to document reduction AP and lateral views. All wounds were irrigated. The deep fascia was closed with [id number] #1 Vicryl sutures and then the the subcutaneous tissues were closed with 2-0 Vicryl. The skin was closed with karina and sterile dressings were applied. The patient tolerated the procedure well. My physician clinical project assistant Kartik HERNANDEZ was first helper throughout the procedure and assisted in patient positioning prepping and draping soft tissue retraction and wound closure and will participate in the postoperative care of the patient. I attest to the content of the Intraoperative Record and any orders documented therein. Any exceptions are noted below.
--- NOTE | 2019-02-23 17:25 | Fluoroscopy Report ---
FL hip RT 2-3V HISTORY: 78 years-old Female RT FX HIP acute intertrochanteric fracture of the right hip COMPARISON: MRI right hip 02/21/2019 TECHNIQUE: 4 spot fluoroscopic images of the right hip were obtained utilizing 93.5 seconds fluorosco py time FINDINGS: Status post placement of an intratrochanteric nail with medullary ophelia and distal cannulated screw fix ating the previously described acute nondisplaced intertrochanteric fracture. Satisfactory alignment. Mild right hip osteoarthritis. Expected postsurgical soft tissue swelling and deep tissue air. IMPRESSION: Fluoroscopic assistance as above. Please see operative report for further details. The above report was generated using voice recognition software. It may contain grammatical, syntax o r spelling errors. Electronically signed by: Pilo Hill M.D. 02/23/2019 5:24 PM
--- NOTE | 2019-02-23 17:59 | Anesthesiology Progress Note ---
Date of Service February 23, 2019 Anesthesia Post Procedure Vital Signs Vital Signs: Temp Pulse Pulse Resp BP Pulse Ox 02/23/19 17:55 88 25 H 135/82 92 02/23/19 17:45 80 23 142/81 H 100 02/23/19 17:35 76 23 147/72 H 98 02/23/19 17:27 97.5 F L 85 18 118/68 100 02/23/19 14:17 98.6 F 87 22 98/49 L 93 02/23/19 07:40 98.2 F 86 24 106/68 97 02/22/19 23:33 98.4 F 98 H 16 112/63 96 Pain Intensity Generalized: Pain Intensity: 0 Right Hip: Pain Intensity: 0 Transfer of Care Handoff Completed per policy Notes Mental Status: alert / awake / arousable and participated in evaluation Patient Amnestic to Procedure: Yes Nausea / Vomiting: adequately controlled Pain: adequately controlled Airway Patency, RR, SpO2: stable & adequate BP & HR: stable & adequate Hydration State: stable & adequate Anesthetic Complications: no major complications apparent and Pt Satisfied with anesthetic care
[2019-02-23] MEDS ORDERED: HYDROmorphone INJ 0.5 MG/0.5 ML SYR IV PRN (18:18)
--- NOTE | 2019-02-23 18:57 | Hospitalist Progress Note ---
Date of Service February 23, 2019 Assessment & Plan (1) Closed fracture of right hip: Secondary to fall of unknown etiology CT of the head negative for acute change Orthopedics consulted Anticipate fracture repair and fixation later today Patient is a [facility] resident -anticipate discharge back to [facility] Good circulation in lower extremities Continue supportive care per orthopedics (2) Dementia: Progressive dementia One-on-one per nursing discretion if needed (3) Multiple fractures of ribs of left side: Pain generally controlled per patient Incentive spirometer as tolerated Current SaO2 is adequate with 2 L/min via nasal cannula Continue to monitor respiratory status No pneumothorax or pleural effusion on CT scan of the chest No evidence of flail chest (4) Anemia: Acute blood loss secondary to trauma and surgery. Hemoglobin has been gradually decreasing. CT scan of chest does show fluid which may represent a hemothorax on the left. Will continue to monitor. Patient will remain on nasal cannula. (5) DVT prophylaxis: Hold chemical prophylaxis for surgery Continue SCDs as tolerated Ambulate per orthopedic orders postsurgically Please refer to Dr. Parks's addendum for further recommendations Supervising Physician Co-Signing Physician Notes I agree with above note. Subjective Is a 78-year-old female status post fall that presents with a left hip fracture. She is currently on the add-on schedule for repair of the hip fracture with Dr. Villagomez. She denies any acute pain at rest and has been bedridden since admission. She denies any fever or chills. She has full sensation in her lower extremities. She denies any paresthesias. Patient is a resident at [facility] and does have progressive dementia. She is unable to give me any past medical history but does seem to be reliable with her review of symptoms. There is currently no family in the room. Patient is pleasant without complaint. Review of Systems Review of Systems: All systems reviewed & are unremarkable except as noted in HPI & below Physical Exam Physical Exam: GENERAL : No acute distress EYES: No icterus, gaze conjugate. Pupils equal round and reactive to light NOSE: No evidence of epistaxis. Nasal cannula in place MOUTH: No lesions or candidiasis. Mucosa moist NECK: Supple LUNGS: CTA B/L, no wheezes, rales or rhonchi HEART: Regular, rate controlled ABDOMEN: Soft, NT, ND, BS Present EXTREMITIES: No LE edema, pedal pulses intact and equal bilaterally. Patient has pronounced pain at the left hip with light palpation. There is no evidence of skin breech. NEURO: Awake and alert. Not oriented to person place or time. Results & Data Vital Signs (Past 12 Hours) Vital Signs Temp Pulse Pulse Resp BP Pulse Ox 02/23/19 14:17 37 C 87 22 98/49 L 93 02/23/19 07:40 36.8 C 86 24 106/68 97 Laboratory Results 02/23/19 07:23 02/23/19 07:23 Diagnostic Findings XR femur RT 2V routine CLINICAL HISTORY: 78 years-old Female presenting with hip fx, trauma. TECHNIQUE: Frontal and lateral views of the right femur were obtained. COMPARISON: None. FINDINGS: Right hip joint and right knee joint congruent. Underlying osteopenia is suspected. No acute fracture or malalignment. No advanced degenerative change of the right hip joint, however, there is prominent osteophytosis in the lateral and patellofemoral compartments of the right knee joint. Visualized portion of the bony pelvis is grossly intact. No radiographic soft tissue abnormality. IMPRESSION: No acute osseous injury or advanced degenerative change. Electronically signed by: Phil Matamoros M.D. 02/22/2019 7:40 AM XR hip RT min 2V HISTORY: 78 years-old Female hip fx acute right hip pain status post fall COMPARISON: CT abdomen and pelvis of same day TECHNIQUE: 3 views of the right hip FINDINGS: There is mild cortical irregularity noted about the superior aspect of the right femoral neck without corresponding fracture seen within this area on comparison CT of same day. The nondisplaced intertrochanteric fracture of the right femur is not definitively appreciated by radiograph. Mild lateral soft tissue swelling. Mild right hip osteoarthritis. Acute nondisplaced fracture of the right ischial tuberosity is also not appreciated by plain film. Soft tissues are unremarkable. IMPRESSION: 1. Nondisplaced likely acute intertrochanteric fracture of the right femur described on CT study of same day is not appreciated by radiograph. 2. Ill-defined cortical irregularity about the superior cortex of the femoral neck is noted without correlate fracture on the comparison CT study. This is likely secondary to normal cortex. Electronically signed by: Pilo Hill M.D. 02/21/2019 1:32 PM PG Care Time/CCT Total # of Minutes Spent Total Time Spent with Patient: Total time spent is greater than 50% in coordination of care (as documented) at patient's floor/unit and/or counseling patient: 30 (1) Multiple fractures of ribs of left side Encounter type: initial encounter Fracture type: closed Qualified Code(s): S22.42XA - Multiple fractures of ribs, left side, initial encounter for closed fracture (2) Closed fracture of right hip Encounter type: initial encounter Qualified Code(s): S72.001A - Fracture of unspecified part of neck of right femur, initial encounter for closed fracture
[2019-02-24] MEDS: CEFAZOLIN 1000MG 1,000 MG/7.5 ML SYR IV SCH ×3 (06:04→21:59)
[2019-02-24 07:27] LABS: Basophils # (auto) 0.04 K/uL (0-0.2); Basophils % (auto) 0.4 %; Eosinophils # (auto) 0.28 K/uL (0-0.5); Eosinophils % (auto) 2.7 %; Hematocrit (blood only) 29.4 % (37-47); Hemoglobin 9.1 g/dL (12.0-16.0); Immature Granulocytes # (auto) 0.05 K/uL (0.00-0.02); Immature Granulocytes % (auto) 0.5 %; Lymphocytes # (auto) 1.45 K/uL (1.2-3.4); Lymphocytes % (auto) 13.9 %; Mean Corpuscular Hemoglobin 27.6 pg (25-34); Mean Corpuscular Volume 89.1 fL (80-100); Mean Platelet Volume 9.5 fL (7.4-10.4); Monocytes # (auto) 0.65 K/uL (0.11-0.59); Monocytes % (auto) 6.2 %; Neutrophils # (auto) 7.98 K/uL (1.4-6.5); Neutrophils % (auto) 76.3 %; Platelet Count 177 K/uL (130-400); RDW Coefficient of Variation 13.8 % (11.5-14.5); White Blood Count 10.45 K/uL (4.8-10.8)
[2019-02-24] MEDS: ACETAMINOPHEN 325 MG TAB PO PRN (07:40)
[2019-02-24] MEDS: VENLAFAXINE HCL 37.5 MG TAB PO SCH (07:41)
[2019-02-24] MEDS: FUROSEMIDE 20 MG TAB PO SCH (07:41)
[2019-02-24] MEDS: POLYETHYLENE (MIRALAX) 17 GM PACK PO SCH (07:41)
[2019-02-24] MEDS: POTASSIUM CHLORIDE 10 MEQ TABCR PO SCH (07:41)
[2019-02-24 07:57] LABS: Creatinine Clr Calc Pharmacy 50.4 ml/min; Est GFR (African American) 82.5; Est GFR (Non-African American) 71.2
--- NOTE | 2019-02-24 08:00 | Anesthesiology Progress Note ---
Date of Service February 24, 2019 Anesthesia Post Procedure Vital Signs Vital Signs: Temp Pulse Pulse Resp BP Pulse Ox 02/24/19 04:17 37.4 C 103 H 26 H 126/70 90 02/24/19 00:01 36.5 C 20 150/83 H 02/23/19 21:24 36.9 C 91 H 17 131/67 97 02/23/19 20:26 36.6 C 89 16 110/68 96 02/23/19 19:17 36.6 C 86 18 121/74 99 02/23/19 18:50 36.4 C L 89 17 121/69 98 02/23/19 18:20 36.3 C L 81 16 119/45 L 92 02/23/19 18:05 36.3 C L 76 22 122/73 99 02/23/19 17:55 88 25 H 135/82 92 02/23/19 17:45 80 23 142/81 H 100 02/23/19 17:35 76 23 147/72 H 98 02/23/19 17:27 36.4 C L 85 18 118/68 100 02/23/19 14:17 37 C 87 22 98/49 L 93 Pain Intensity Generalized: Pain Intensity: 0 Right Hip: Pain Intensity: 0 Notes Mental Status: alert / awake / arousable and participated in evaluation Patient Amnestic to Procedure: Yes Nausea / Vomiting: adequately controlled Pain: adequately controlled Airway Patency, RR, SpO2: stable & adequate BP & HR: stable & adequate Hydration State: stable & adequate Anesthetic Complications: no major complications apparent and Pt Satisfied with anesthetic care
--- NOTE | 2019-02-24 12:20 | Orthopedic Progress Note ---
Date of Service February 24, 2019 Assessment & Plan (1) Closed fracture of right hip: POD #1, Right Hip ORIF troch nail WBAT with walker/ assistance. PT/ OT DVT proph- Lovenox D/C planning- Likely SNF. Subjective POD #1, patient confused and unable to answer appropriately. Physical Exam Physical Exam: Right hip dressings c/d/i, no drainage, toes mobile. Patient confused, demented, not oriented to place and time. Results & Data Vital Signs (Past 12 Hours) Vital Signs Temp Pulse Pulse Resp BP BP Pulse Ox 02/24/19 08:00 36.9 C 104 H 18 117/67 91 02/24/19 04:17 37.4 C 103 H 26 H 126/70 90 (1) Closed fracture of right hip Encounter type: initial encounter Qualified Code(s): S72.001A - Fracture of unspecified part of neck of right femur, initial encounter for closed fracture
--- NOTE | 2019-02-24 12:51 | Hospitalist Progress Note ---
Date of Service February 24, 2019 Assessment & Plan (1) Closed fracture of right hip: Secondary to fall of unknown etiology CT of the head negative for acute change Orthopedics consulted Trochanteric repair with trochanteric nail Pain is controlled Patient is a [facility] resident -anticipate discharge back to [facility] Good circulation in lower extremities PT OT evaluation treatment (2) Dementia: Progressive dementia One-on-one per nursing discretion if needed (3) Multiple fractures of ribs of left side: Pain controlled per patient Incentive spirometer as tolerated although patient has difficulty with coordination due to dementia Current SaO2 is adequate with 2 L/min via nasal cannula Continue to monitor respiratory status No pneumothorax or pleural effusion on CT scan of the chest No evidence of flail chest (4) Anemia: Hemoglobin slowly drifting down -currently 9.1 No apparent active bleeding Platelet count 177 Iron studies with am labs FOB X 1 Patient not on outpatient iron supplement (5) DVT prophylaxis: Enoxaparin 30 mg subcutaneously daily Continue SCDs as tolerated Ambulate as tolerated Please refer to Dr. Parks's addendum for further recommendations Supervising Physician Co-Signing Physician Notes During my face to face encounter, I obtained a brief history and physical on the patient. I reviewed above note and discussed plan with patient and APC. At this point I am concerned about hemothorax as noted above. Will continue to monitor hemoglobin. May consider thoracocenthesis. Subjective Is a 78-year-old female that was admitted for right hip fracture after a fall of unknown etiology. The patient is postoperative day #1 with trochan teric nailing. The patient has no significant hip pain on the right. A dressing is dry and intact. Patient does have dementia and is able to provide only limited review of systems. The patient's Sister Nupur is present and provides history for her The patient sister states that the patient has not walked for the last 2 to [address] [facility]. There was no injury or trauma. The patient just began to use a chair with wheels to mobilize. Most of the day the patient's been sitting at the nurses station. 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 The sister also provides information that the patient quit smoking 6 months ago cold turkey and spent most of her adult life smoking 1 pack/day or greater. The patient currently denies any shortness of breath or pain. She has no acute complaints. Due to her dementia she is unable to provide past medical history. Review of Systems Review of Systems: Unobtainable due to cognitive status Patient with progressive dementia Physical Exam Physical Exam: GENERAL : No acute distress. Sitting in bedside chair. Pleasant EYES: No icterus, gaze conjugate NOSE: No evidence of epistaxis MOUTH: No lesions or candidiasis NECK: Supple LUNGS: CTA B/L, no wheezes, rales or rhonchi HEART: Regular, rate controlled ABDOMEN: Soft, NT, ND, BS Present EXTREMITIES: No LE edema, pedal pulses intact. Bandage and dressing dry and intact to the right hip. No pain to palpation. NEURO: Awake and alert. Progressive dementia. Results & Data Vital Signs (Past 12 Hours) Vital Signs Temp Pulse Pulse Resp BP BP Pulse Ox 02/24/19 12:17 37.0 C 91 H 20 108/64 97 02/24/19 08:00 36.9 C 104 H 18 117/67 91 02/24/19 04:17 37.4 C 103 H 26 H 126/70 90 Laboratory Results 02/24/19 06:59 02/24/19 06:59 Laboratory Tests 02/21/19 02/22/19 02/23/19 10:33 10:07 07:23 Hgb 11.8 L 10.3 L 9.6 L 02/24/19 06:59 Hgb 9.1 L PG Care Time/CCT Total # of Minutes Spent Total Time Spent: 25 Total Time Spent with Patient: Total time spent is greater than 50% in coordination of care (as documented) at patient's floor/unit and/or counseling patient:25 Critical Care Time: No Prolonged Care Time Prolonged Care Time: No (1) Multiple fractures of ribs of left side Encounter type: initial encounter Fracture type: closed Qualified Code(s): S22.42XA - Multiple fractures of ribs, left side, initial encounter for closed fracture (2) Closed fracture of right hip Encounter type: initial encounter Qualified Code(s): S72.001A - Fracture of unspecified part of neck of right femur, initial encounter for closed fracture
[2019-02-24] MEDS: ENOXAPARIN INJ 30 MG/0.3 ML SYR SQ SCH (17:56)
[2019-02-24] MEDS: TRAMADOL HCL 50 MG TABLET PO PRN (18:06)
[2019-02-25] MEDS: CEFAZOLIN 1000MG 1,000 MG/7.5 ML SYR IV SCH ×3 (05:37→21:05)
[2019-02-25 07:55] LABS: Basophils # (auto) 0.05 K/uL (0-0.2); Basophils % (auto) 0.6 %; Eosinophils % (auto) 4.5 %; Hematocrit (blood only) 27.5 % (37-47); Hemoglobin 8.6 g/dL (12.0-16.0); Immature Granulocytes # (auto) 0.05 K/uL (0.00-0.02); Immature Granulocytes % (auto) 0.6 %; Lymphocytes # (auto) 1.37 K/uL (1.2-3.4); Lymphocytes % (auto) 15.4 %; Mean Corpuscular Hemoglobin 27.7 pg (25-34); Mean Corpuscular Hgb Conc 31.3 g/dL (32-36); Mean Corpuscular Volume 88.7 fL (80-100); Mean Platelet Volume 9.4 fL (7.4-10.4); Monocytes # (auto) 0.73 K/uL (0.11-0.59); Monocytes % (auto) 8.2 %; Neutrophils # (auto) 6.28 K/uL (1.4-6.5); Neutrophils % (auto) 70.7 %; Platelet Count 190 K/uL (130-400); RDW Coefficient of Variation 13.8 % (11.5-14.5); RDW Standard Deviation 44.3 fL (36.4-46.3); Reticulocyte % 1.6 % (0.5-2.0); Reticulocytes # 0.05 10^6/uL (0.02-0.10); White Blood Count 8.88 K/uL (4.8-10.8)
[2019-02-25 08:21] LABS: Creatinine Clr Calc Pharmacy 51.1 ml/min; Est GFR (African American) 83.8; Est GFR (Non-African American) 72.3
[2019-02-25 08:26] LABS: Ferritin 146.3 ng/ml (8-388)
[2019-02-25 09:16] LABS: Folate (Folic Acid) 13.44 ng/ml (>5.38)
[2019-02-25] MEDS: TRAMADOL HCL 50 MG TABLET PO PRN ×2 (09:35→15:30)
[2019-02-25] MEDS: FUROSEMIDE 20 MG TAB PO SCH (09:36)
[2019-02-25] MEDS: POTASSIUM CHLORIDE 10 MEQ TABCR PO SCH (09:36)
[2019-02-25] MEDS: POLYETHYLENE (MIRALAX) 17 GM PACK PO SCH (09:37)
[2019-02-25] MEDS: VENLAFAXINE HCL 37.5 MG TAB PO SCH (09:37)
--- NOTE | 2019-02-25 10:08 | Hospitalist Progress Note ---
Date of Service February 25, 2019 Assessment & Plan (1) Closed fracture of right hip: Secondary to fall of unknown etiology CT of the head negative for acute change Orthopedics consulted ORIF with trochanteric repair with trochanteric nail Pain is controlled Patient is a [facility] resident -anticipate discharge back to [facility] Good circulation in lower extremities PT OT evaluation / treatment (2) Dementia: Progressive dementia One-on-one per nursing discretion if needed No combative behavior (3) Multiple fractures of ribs of left side: Pain controlled per patient Incentive spirometer as tolerated although patient has difficulty with coordination due to dementia Current SaO2 is adequate with 2 L/min via nasal cannula Continue to monitor respiratory status No evidence of flail chest but multiple left sided rib fractures Bedside ultra sound reveals developing pleural effusion with increased atelectasis CXR confirms US findings (4) Pleural effusion, left: Concern for hemothorax secondary to multiple left-sided rib fractures Bedside ultrasound as well as chest x-ray confirm pleural effusion and increased atelectasis Will discuss with thoracic surgery (5) Anemia: Hemoglobin slowly drifting down -currently 8.6 from 9.1 Drop in HgB is concerning for hemothorax due to rib fractures Discussed with ortho and 2-3 g/dL is not unlikely. Patient should be at [facility] from an ortho perspective. Platelet count 190 Iron studies: * retic count normal at 1.6 * Iron 14 L * TIBC 193 L * Transferrin 153 L * Ferritin 146.3 WNL * Vit B12 559 WNL * Folate 13.44 WNL * MCV 88.7 WNL Start Ferrous sulfate BID FOB X 1 ordered Patient not on outpatient iron supplement No bowel movement since admission * Bowel regimen ordered (6) DVT prophylaxis: Enoxaparin 30 mg subcutaneously daily Continue SCDs as tolerated Ambulate as tolerated Please refer to Dr. Parks's addendum for further recommendations Supervising Physician Co-Signing Physician Notes During my face to face encounter, I obtained a brief history and physical on the patient. I reviewed above note and discussed plan with patient and APC. At this point I am concerned about hemothorax as noted above. Will continue to monitor hemoglobin. It has continued to drop at a rate of .5 each day. Patient though is not having any active symptoms. D/W thoracic surgery, will likely get a thoracocenthesis Subjective Patient is 78-year-old that underwent fall and had broken hip as well as multiple rib fractures with no evidence of flail chest. Hemoglobin has been dropping. Bedside ultrasound reveals pleural fluid on the left. Chest x-ray is pending. Patient denies any shortness of breath but does have discomfort on the left especially with deep breathing. She has been started on incentive spirometry but did not coordinate well due to her progressive dementia. Patient denies any chest pain or tightness. She denies any Shortness of breath. She has no hemoptysis or productive cough.She is unaware of any fever or chills. Patient does have ongoing dementia and needs to be reoriented frequently.Patient also has frequent bouts of disruptive speech.She denies any other acute complaints. Review of Systems Review of Systems: All systems reviewed & are unremarkable except as noted in HPI & below Physical Exam Physical Exam: GENERAL : No acute distress. Patient is sitting in bedside in a wheelchair EYES: No icterus, gaze conjugate NOSE: No evidence of epistaxis MOUTH: No lesions or candidiasis. Mucosa is moist NECK: Supple. Trachea is midline LUNGS: CTA B/L, no wheezes.Patient does have some faint crackles at the left baseBut no appreciation of rhonchi HEART: Regular, rate controlled ABDOMEN: Soft, NT, ND, BS Present EXTREMITIES: No LE edema, pedal pulses intact. Dressing dry and intact on the right hip at surgical site NEURO: Awake and alert but disoriented. Pleasant. Cooperative. Results & Data Vital Signs (Past 12 Hours) Vital Signs Temp Pulse Pulse Resp BP Pulse Ox 02/25/19 07:58 37.5 C 98 H 20 108/50 L 97 02/25/19 00:00 36.8 C 108 H 16 122/66 95 Laboratory Results 02/25/19 07:40 02/25/19 07:40 Laboratory Tests 02/21/19 02/22/19 02/23/19 10:33 10:07 07:23 Hgb 11.8 L 10.3 L 9.6 L 02/24/19 02/25/19 06:59 07:40 Hgb 9.1 L 8.6 L Diagnostic Findings Bedside ultrasound performed and shows pleural effusion on the left with associated atelectasis of the left lung PG Care Time/CCT Total # of Minutes Spent Total Time Spent with Patient: Total time spent is greater than 50% in coordination of care (as documented) at patient's floor/unit and/or counseling patient: 45 (1) Multiple fractures of ribs of left side Encounter type: initial encounter Fracture type: closed Qualified Code(s): S22.42XA - Multiple fractures of ribs, left side, initial encounter for closed fracture (2) Closed fracture of right hip Encounter type: initial encounter Qualified Code(s): S72.001A - Fracture of unspecified part of neck of right femur, initial encounter for closed fracture
--- NOTE | 2019-02-25 10:18 | XRay Report ---
XR chest 1V portable CLINICAL HISTORY: Left pleural effusion/atelectasis. COMPARISON STUDY: Chest CT February 22, 2016. FINDINGS: Scoliosis of the thoracolumbar spine is incidentally noted. There is no pneumothorax. Small to moderate left pleural effusion has developed. There is a trace right pleural effusion. Multiple l eft-sided rib fractures are again noted. Cardiomediastinal silhouette is stable. There is mild inters titial pulmonary edema. Left basilar opacity has developed. IMPRESSION: 1. No pneumothorax. 2. Interval development of a small to moderate left pleural effusion. This may represent a simple ple ural effusion or hemothorax given left rib fractures. Left basilar opacity which may reflect atelecta sis or consolidation 3. Trace right pleural effusion. 4. Mild pulmonary edema. Electronically signed by: Pilo Desir M.D. 02/25/2019 10:16 AM
--- NOTE | 2019-02-25 13:14 | Orthopedic Progress Note ---
Date of Service February 25, 2019 Assessment & Plan (1) Closed fracture of right hip: POD #2, Right Hip ORIF troch nail WBAT with walker/ assistance. PT/ OT DVT proph- Lovenox D/C planning- Likely SNF. Subjective POD #1, patient confused and unable to answer appropriately. Physical Exam Constitutional: no acute distress Sitting in wheelchair next to the bed Musculoskeletal: Hip: + surgical incision (Right hip: dressings C/D/I. ) and + joint line tenderness (Mild tenderness around the dressings of the right hip. Thigh is soft.); hip normal to inspection and no deformity Neurologic: awake and + confused Results & Data Vital Signs (Past 12 Hours) Vital Signs Temp Pulse Resp BP Pulse Ox 02/25/ 07:58 37.5 C 98 H 20 108/50 L 97 (1) Closed fracture of right hip Encounter type: initial encounter Qualified Code(s): S72.001A - Fracture of unspecified part of neck of right femur, initial encounter for closed fracture
[2019-02-25] MEDS: ENOXAPARIN INJ 30 MG/0.3 ML SYR SQ SCH (15:30)
[2019-02-25] MEDS: FERROUS SULFATE 325 MG TAB PO SCH (15:30)
[2019-02-25] MEDS: ACETAMINOPHEN 1,000 MG/100 ML VIAL IV PRN (18:43)
[2019-02-26] MEDS: CEFAZOLIN 1000MG 1,000 MG/7.5 ML SYR IV SCH ×3 (05:47→22:09)
[2019-02-26 06:18] LABS: Basophils # (auto) 0.04 K/uL (0-0.2); Basophils % (auto) 0.5 %; Eosinophils % (auto) 5.4 %; Hematocrit (blood only) 25.7 % (37-47); Immature Granulocytes # (auto) 0.06 K/uL (0.00-0.02); Immature Granulocytes % (auto) 0.8 %; Lymphocytes # (auto) 1.56 K/uL (1.2-3.4); Lymphocytes % (auto) 20.9 %; Mean Corpuscular Hemoglobin 27.5 pg (25-34); Mean Corpuscular Hgb Conc 31.1 g/dL (32-36); Mean Corpuscular Volume 88.3 fL (80-100); Mean Platelet Volume 9.4 fL (7.4-10.4); Monocytes # (auto) 0.51 K/uL (0.11-0.59); Monocytes % (auto) 6.8 %; Neutrophils % (auto) 65.6 %; Platelet Count 180 K/uL (130-400); RDW Coefficient of Variation 13.6 % (11.5-14.5); RDW Standard Deviation 43.9 fL (36.4-46.3); Red Blood Count 2.91 M/uL (4.2-5.4); White Blood Count 7.47 K/uL (4.8-10.8)
--- NOTE | 2019-02-26 07:18 | XRay Report ---
XR chest 1V portable CLINICAL HISTORY: 78 years-old Female presenting with pleural effusion. TECHNIQUE: Portable semiupright AP view of the chest was obtained. COMPARISON: 02/25/2019. FINDINGS: Atherosclerosis of the aortic arch. Cardiac silhouette top normal in size. A gradient of density is n oted over the mid to lower left lung indicating a layering pleural effusion. Pulmonary vascular promi nence and interlobular septal thickening suggested. No pneumothorax is apparent. Multiple acute left lateral rib fractures as on prior exam. Underlying osteopenia. Upper abdomen normal. IMPRESSION: 1. Similar appearance of the layering left effusion and/or atelectasis associated with multiple acut e left lateral rib fractures. 2. Volume overload with congestive change. No saurabh pulmonary edema. Electronically signed by: Phil Matamoros M.D. 02/26/2019 7:16 AM
--- NOTE | 2019-02-26 08:07 | Orthopedic Progress Note ---
Date of Service February 26, 2019 Assessment & Plan (1) Closed fracture of right hip: POD #3, Right Hip ORIF troch nail WBAT with walker/ assistance. PT/ OT DVT proph- Lovenox D/C planning- Likely SNF. Orthopedics will sign off for now, please call for questions. See instructions in chart. Subjective Postoperative progress note Patient seen resting comfortably in bed. Denies pain. Without agitation. Poor historian secondary to underlying dementia. Review of Systems Review of Systems: Unobtainable due to mental health condition Constitutional: as per Subjective / HPI Physical Exam Physical Exam: Right lower extremity physical exam limited secondary to inability to follow commands. Does actively wiggle toes. +2 dorsalis pedis pulse. Compartment soft nontender. Dressings clean dry and intact. Constitutional: WD/WN, vitals as above Results & Data Vital Signs (Past 12 Hours) Vital Signs Temp Pulse Resp BP Pulse Ox 02/26/19 07:12 36.6 C 98 H 16 108/86 98 02/25/19 23:15 36.8 C 95 H 18 138/80 98 Laboratory Results 02/26/19 02/26/19 02/25/19 Range/Units 05:49 05:49 07:40 WBC 7.47 (4.8-10.8) K/uL RBC 2.91 L (4.2-5.4) M/uL Hgb 8.0 L (12.0-16.0) g/dL Hct 25.7 L (37-47) % MCV 88.3 (80-100) fL MCH 27.5 (25-34) pg MCHC 31.1 L (32-36) g/dL RDW Std Deviation 43.9 (36.4-46.3) fL RDW Coeff of Kimi 13.6 (11.5-14.5) % Plt Count 180 (130-400) K/uL MPV 9.4 (7.4-10.4) fL Immature Gran % (Auto) 0.8 % Neut % (Auto) 65.6 % Lymph % (Auto) 20.9 % [place] % (Auto) 6.8 % Eos % (Auto) 5.4 % Baso % (Auto) 0.5 % Immature Gran # (Auto) 0.06 H (0.00-0.02) K/uL Neut # (Auto) 4.90 (1.4-6.5) K/uL Lymph # (Auto) 1.56 (1.2-3.4) K/uL [place] # (Auto) 0.51 (0.11-0.59) K/uL Eos # (Auto) 0.40 (0-0.5) K/uL Baso # (Auto) 0.04 (0-0.2) K/uL Creatinine (0.6-1.2) mg/dl Est Cr Clr Drug Dosing ml/min Est GFR ( Amer) Est GFR (Non-Af Amer) Iron (35-150) mcg/dl TIBC (250-450) mcg/dl Transferrin (200-360) mg/dl Ferritin (8-388) ng/ml NT-Pro-B Natriuret Pep 290 (0-1800) pg/ml Vitamin B12 559 (211-911) pg/ml Folate 13.44 (>5.38) ng/ml 02/25/19 Range/Units 07:40 WBC (4.8-10.8) K/uL RBC (4.2-5.4) M/uL Hgb (12.0-16.0) g/dL Hct (37-47) % MCV (80-100) fL MCH (25-34) pg MCHC (32-36) g/dL RDW Std Deviation (36.4-46.3) fL RDW Coeff of Kimi (11.5-14.5) % Plt Count (130-400) K/uL MPV (7.4-10.4) fL Immature Gran % (Auto) % Neut % (Auto) % Lymph % (Auto) % [place] % (Auto) % Eos % (Auto) % Baso % (Auto) % Immature Gran # (Auto) (0.00-0.02) K/uL Neut # (Auto) (1.4-6.5) K/uL Lymph # (Auto) (1.2-3.4) K/uL [place] # (Auto) (0.11-0.59) K/uL Eos # (Auto) (0-0.5) K/uL Baso # (Auto) (0-0.2) K/uL Creatinine 0.78 (0.6-1.2) mg/dl Est Cr Clr Drug Dosing 51.1 ml/min Est GFR ( Amer) 83.8 Est GFR (Non-Af Amer) 72.3 Iron 14 L (35-150) mcg/dl TIBC 193 L (250-450) mcg/dl Transferrin 153 L (200-360) mg/dl Ferritin 146.3 (8-388) ng/ml NT-Pro-B Natriuret Pep 421 (0-1800) pg/ml Vitamin B12 (211-911) pg/ml Folate (>5.38) ng/ml (1) Closed fracture of right hip Encounter type: initial encounter Qualified Code(s): S72.001A - Fracture of unspecified part of neck of right femur, initial encounter for closed fracture
--- NOTE | 2019-02-26 08:50 | Consultation Report ---
DATE OF CONSULTATION: 02/26/2019 REASON FOR CONSULTATION: Left pleural effusion. HISTORY OF PRESENT ILLNESS: Sera Hart is a 78-year-old female who was admitted on 02/21/2019 after a probable fall. The patient is a resident of [facility] and has dementia. She apparently fell out of bed by history from the staff at [facility] and had pain and was found to have a right hip fracture, but also has some left rib fractures. I was asked to see her about a possible thoracentesis. The patient underwent an ultrasound by Ramses Ayala from pulmonary yesterday and there is some free flowing fluid. The patient also has a probable UTI. The patient underwent a trochanteric femoral nailing by Dr. Villagomez 3 days ago. I have been asked to comment on this pleural effusion. PAST MEDICAL HISTORY: 1. Dementia. 2. Hyperlipidemia. 3. Possible urinary tract infection. 4. History of cigarette smoking. PAST SURGICAL HISTORY: Left trochanteric hip nailing. ALLERGIES: No known drug allergies. MEDICATIONS: Please see chart. SOCIAL HISTORY: The patient has become more demented and has been cared for at [facility] chronically since this summer. FAMILY MEDICAL HISTORY: Noncontributory. REVIEW OF SYSTEMS: The patient struck her head, but her CT scan has been negative and has no apparent focal deficits, but she is confused and it is difficult to tell. She does not appear to have any focal deficits. She does have a rib fracture. She also has a small to moderate left pleural effusion. She is on 2 liters at 98% sats and appears comfortable. She is able to speak without breathlessness and has no accessory muscle use. She does suffer from chronic constipation. She has also been a bit anemic. The patient has no other wound breakdown or skin lesions. She has had no nausea or vomiting or other symptoms. She is a bit demented and does not appear she has had any further hearing or visual impairment in the recent past. PHYSICAL EXAMINATION: GENERAL: This is a thin 5-foot 2-inch, 130-pound female who is lying comfortably in bed. VITAL SIGNS: She is on 2 liters at 98% saturation. Heart rate is in the 90s. HEENT: Her extraocular movements are intact. She has bilateral arcus senilis. She has no nasolabial flattening. NECK: Supple. I detect no supraclavicular or cervical lymphadenopathy. She has mildly decreased breath sounds at the left base. HEART: She has a regular rate and rhythm of her heart. ABDOMEN: Soft and nontender. EXTREMITIES: She has good perfusion to her lower extremities. She has no pretibial edema. ASSESSMENT AND PLAN: Left pleural effusion. I discussed her with Ramses Ayala. The size of the pleural effusion is not nearly as important due to the fact that this could represent blood. Given this, we will offer her a thoracentesis tomorrow on 02/27/2019. We will discuss this with her sister, Nupur Nguyen. She has a son, Williams Ryan, who lives in [place]. [facility] SYSTEM[facility]
[2019-02-26] MEDS: FERROUS SULFATE 325 MG TAB PO SCH ×2 (09:01→17:48)
[2019-02-26] MEDS: VENLAFAXINE HCL 37.5 MG TAB PO SCH (09:01)
[2019-02-26] MEDS: FUROSEMIDE 20 MG TAB PO SCH (09:02)
[2019-02-26] MEDS: POLYETHYLENE (MIRALAX) 17 GM PACK PO SCH (09:02)
[2019-02-26] MEDS: POTASSIUM CHLORIDE 10 MEQ TABCR PO SCH (09:02)
[2019-02-26] MEDS: ENOXAPARIN INJ 30 MG/0.3 ML SYR SQ SCH (16:44)
[2019-02-26] MEDS: TRAMADOL HCL 50 MG TABLET PO PRN (20:32)
[2019-02-26] MEDS: ALBUTEROL 0.083% NEBU SOLN 3 ML VIAL INH PRN (20:46)
--- NOTE | 2019-02-26 23:48 | Hospitalist Progress Note ---
Date of Service February 26, 2019 Assessment & Plan (1) Closed fracture of right hip: Secondary to fall of unknown etiology CT of the head negative for acute change Orthopedics consulted Anticipate fracture repair and fixation later today [facility] Good circulation in lower extremities Continue supportive care per orthopedics (2) Dementia: Pleasant, may need one to one (3) Multiple fractures of ribs of left side: Pain generally controlled per patient Incentive spirometer as tolerated Current SaO2 is adequate with 2 L/min via nasal cannula Continue to monitor respiratory status No pneumothorax or pleural effusion on CT scan of the chest No evidence of flail chest (4) Anemia: Acute blood loss secondary to trauma and surgery. Hemoglobin has been gradually decreasing each day since admission. CT scan of chest does show fluid which may represent a hemothorax on the left. Plan is for thoracocenthesis in AM. At this time will continue with anticoagulation, if thoracocenthesis is negative. Will consider rescanning patient in the abd and pelvis region. (5) Pleural effusion, left: Concern for TRAUMATIC hemothorax secondary to multiple left-sided rib fractures Bedside ultrasound as well as chest x-ray confirm pleural effusion and increased atelectasis Will discuss with thoracic surgery (6) Urinary tract infection: Patient is currently on cefazolin. Patient has urinary catheter. Will keep in place until thoracenthesis. May consider removing lozano in AM. Lozano was placed after UTI was diagnosed as this was present on admission. (7) DVT prophylaxis: As per ortho Subjective Patient does not provide significant history. She continues to be confused and states that she wants to return home. Review of Systems Review of Systems: All systems reviewed & are unremarkable except as noted in HPI & below Physical Exam Physical Exam: GENERAL : No acute distress. Patient is sitting in bedside in a wheelchair EYES: No icterus, gaze conjugate NOSE: No evidence of epistaxis MOUTH: No lesions or candidiasis. Mucosa is moist NECK: Supple. Trachea is midline LUNGS: CTA B/L, no wheezes.Patient does have some faint crackles at the left baseBut no appreciation of rhonchi HEART: Regular, rate controlled ABDOMEN: Soft, NT, ND, BS Present EXTREMITIES: No LE edema, pedal pulses intact. Dressing dry and intact on the right hip at surgical site NEURO: Awake and alert but disoriented. Pleasant. Cooperative. Results & Data Vital Signs (Past 12 Hours) Vital Signs Temp Pulse Resp BP Pulse Ox 02/26/19 22:33 36.9 C 99 H 16 115/65 98 02/26/19 20:46 80 20 98 02/26/19 16:42 98 02/26/19 16:00 37.2 C 98 H 20 145/71 H 99 PG Care Time/CCT Total # of Minutes Spent Total Time Spent with Patient: Total time spent is greater than 50% in coordination of care (as documented) at patient's floor/unit and/or counseling patient: (1) Multiple fractures of ribs of left side Encounter type: initial encounter Fracture type: closed Qualified Code(s): S22.42XA - Multiple fractures of ribs, left side, initial encounter for closed fracture (2) Closed fracture of right hip Encounter type: initial encounter Qualified Code(s): S72.001A - Fracture of unspecified part of neck of right femur, initial encounter for closed fracture
[2019-02-27] MEDS: CEFAZOLIN 1000MG 1,000 MG/7.5 ML SYR IV SCH ×3 (06:01→21:19)
[2019-02-27 07:51] LABS: Basophils # (auto) 0.05 K/uL (0-0.2); Basophils % (auto) 0.7 %; Eosinophils % (auto) 4.4 %; Hematocrit (blood only) 25.1 % (37-47); Hemoglobin 7.7 g/dL (12.0-16.0); Immature Granulocytes # (auto) 0.07 K/uL (0.00-0.02); Lymphocytes # (auto) 1.36 K/uL (1.2-3.4); Lymphocytes % (auto) 20.1 %; Mean Corpuscular Hemoglobin 27.4 pg (25-34); Mean Corpuscular Hgb Conc 30.7 g/dL (32-36); Mean Corpuscular Volume 89.3 fL (80-100); Mean Platelet Volume 9.1 fL (7.4-10.4); Monocytes # (auto) 0.53 K/uL (0.11-0.59); Monocytes % (auto) 7.8 %; Neutrophils # (auto) 4.47 K/uL (1.4-6.5); Platelet Count 193 K/uL (130-400); RDW Coefficient of Variation 13.5 % (11.5-14.5); RDW Standard Deviation 44.3 fL (36.4-46.3); Red Blood Count 2.81 M/uL (4.2-5.4); White Blood Count 6.78 K/uL (4.8-10.8)
[2019-02-27 08:19] LABS: RBC Morphology Unremarkable
[2019-02-27] MEDS: FERROUS SULFATE 325 MG TAB PO SCH ×2 (09:13→16:51)
[2019-02-27] MEDS: POTASSIUM CHLORIDE 10 MEQ TABCR PO SCH (09:13)
[2019-02-27] MEDS: VENLAFAXINE HCL 37.5 MG TAB PO SCH (09:13)
[2019-02-27] MEDS: FUROSEMIDE 20 MG TAB PO SCH (09:14)
[2019-02-27] MEDS: POLYETHYLENE (MIRALAX) 17 GM PACK PO SCH (09:17)
--- NOTE | 2019-02-27 09:27 | Hospitalist Progress Note ---
Date of Service February 27, 2019 Assessment & Plan (1) Closed fracture of right hip: Secondary to fall of unknown etiology CT of the head negative for acute change Orthopedics consulted ORIF with trochanteric repair with trochanteric nail Pain is controlled Patient is a [facility] resident -anticipate discharge back to [facility] Awaiting placement Good circulation in lower extremities PT OT evaluation / treatment (2) Dementia: Pleasant, may need one to one (3) Multiple fractures of ribs of left side: Pain generally controlled per patient Incentive spirometer as tolerated Current SaO2 is adequate with 2 L/min via nasal cannula Continue to monitor respiratory status No pneumothorax Hemothorax on ct scan No evidence of flail chest (4) Anemia: Acute blood loss secondary to trauma and surgery. Hemoglobin has been gradually decreasing each day since admission. CT scan of chest does show fluid which may represent a hemothorax on the left. Thoracocenthesis done: 500 ml of bloody fluid will monitor cbc in AM. Repeated ct abd pelvis. no signs of additional bleeding At this time will continue with anticoagulation, if thoracocenthesis is nega tive. Will consider rescanning patient in the abd and pelvis region. (5) Pleural effusion, left: Concern for TRAUMATIC hemothorax secondary to multiple left-sided rib fractures Bedside ultrasound as well as chest x-ray confirm pleural effusion and increased atelectasis Will discuss with thoracic surgery (6) Urinary tract infection: Patient is currently on cefazolin. Patient has urinary catheter. Will keep in place until thoracenthesis. May consider removing lozano in AM. Lozano was placed after UTI was diagnosed as this was present on admission. (7) DVT prophylaxis: As per ortho Subjective Patient is a poor historian due to underlying dementia. Unable to reach family today by telephone. Review of Systems Review of Systems: All systems reviewed & are unremarkable except as noted in HPI & below Physical Exam Physical Exam: GENERAL : No acute distress. Patient is sitting in bedside in a wheelchair EYES: No icterus, gaze conjugate NOSE: No evidence of epistaxis MOUTH: No lesions or candidiasis. Mucosa is moist NECK: Supple. Trachea is midline LUNGS: CTA B/L, no wheezes. HEART: Regular, rate controlled ABDOMEN: Soft, NT, ND, BS Present EXTREMITIES: No LE edema, pedal pulses intact. Dressing dry and intact on the right hip at surgical site NEURO: Awake and alert but disoriented. Pleasant. Cooperative. Results & Data Vital Signs (Past 12 Hours) Vital Signs Temp Pulse Resp BP Pulse Ox 02/27/19 06:59 36.9 C 86 16 113/56 L 99 02/26/19 22:33 36.9 C 99 H 16 115/65 98 PG Care Time/CCT Total # of Minutes Spent Total Time Spent with Patient: Total time spent is greater than 50% in coordination of care (as documented) at patient's floor/unit and/or counseling patient: (1) Multiple fractures of ribs of left side Encounter type: initial encounter Fracture type: closed Qualified Code(s): S22.42XA - Multiple fractures of ribs, left side, initial encounter for closed fracture (2) Closed fracture of right hip Encounter type: initial encounter Qualified Code(s): S72.001A - Fracture of unspecified part of neck of right femur, initial encounter for closed fracture
[2019-02-27 10:30] LABS: Total Protein Pleural Fluid 3.6 g/dl
--- NOTE | 2019-02-27 10:30 | XRay Report ---
XR chest 1V portable HISTORY: Status post thoracentesis COMPARISON: Chest 02/26/2019. FINDINGS: Decrease in size in the small left pleural effusion with left basilar densities suggesting atelectasis. No pneumothorax. Left lower rib fractures are again noted. The heart is normal in size. The right lung is clear. IMPRESSION: 1. Decrease in size in the small left pleural effusion status post thoracentesis. No pneumothorax. 2. Left lower rib fractures are again noted. Electronically signed by: Christiano Rios M.D. 02/27/2019 10:29 AM
[2019-02-27 10:50] LABS: Appearance Pleural Fluid BLOODY; Color Pleural Fluid RED; Mononuclear WBC Pleural 31.9 %; Polynuclear WBC Pleural 68.1 %; RBC Pleural Fluid (A) 1034000 /uL; Source Pleural Fluid LEFT LUNG; WBC Pleural Fluid (A) 1344 /uL
--- NOTE | 2019-02-27 12:08 | CT Scan Report ---
CT chest wo con, CT abd pelvis wo con CT DOSE: 463.97 mGy.cm HISTORY: Follow-up pleural effusion. Anemia. TECHNIQUE: Multiaxial CT images of the chest, abdomen, pelvis were performed without contrast. A dos e lowering technique was utilized adhering to the principles of ALARA. COMPARISON: Chest abdomen and pelvis CT 02/21/2019. FINDINGS: Mild displaced left lower rib fractures are again noted. T12 mild anterior wedge-shaped com pression fracture is also unchanged. Trace left pleural effusion/hemothorax has slightly increased in size. Small hiatus hernia. Normal esophagus. No mediastinal hematoma identified. Calcified plaque wi thin the normal thoracic aorta. The heart is normal in size. No pericardial effusion. No pneumothorax . Emphysema. Mild respiratory motion artifact. Left basilar densities/consolidation has slightly prog ressed. This favors atelectasis. No pneumoperitoneum. No pneumatosis. Mild motion artifact. Nondisplaced fracture at the right ischial tuberosity is again noted. Status post internal fixation of the right hip fracture. Skin karina and an incision site is seen within the right lateral hip. No associated hematoma. The bladder is decomp ressed by a Nolen catheter. There is associated bladder wall thickening, unchanged. No intraperitonea l or retroperitoneal hematoma identified. The unenhanced liver, gallbladder, spleen, adrenal glands, and pancreas are unremarkable. No hydronephrosis. No retroperitoneal lymphadenopathy. Calcified plaqu e within the normal caliber abdominal aorta. Moderate stool within the colon. The uterus is unremarka ble. No bowel wall thickening or obstruction. IMPRESSION: 1. Slight increase in size in the trace left pleural effusion/hemothorax with slight progression of t he left basilar densities suggesting atelectasis. 2. Interval internal fixation of the right hip fracture. 3. Left rib fractures, T12 fracture, and the right ischial tuberosity fracture are not significantly changed. No pneumothorax. 4. Emphysema. 5. Additional findings as described above. Electronically signed by: Christiano Rios M.D. 02/27/2019 12:06 PM
[2019-02-27] MEDS ORDERED: LACTATED RINGER'S 1,000 ML IV SCH (12:45)
--- NOTE | 2019-02-27 12:51 | Operative Report ---
DATE OF OPERATION: 02/27/2019 DATE OF PROCEDURE: 02/27/2019 PREOPERATIVE DIAGNOSIS: Left hemothorax. POSTOPERATIVE DIAGNOSIS: Left hemothorax. PROCEDURE PERFORMED: Ultrasound-guided left thoracentesis at bedside. SURGEON: Tj Pulliam MD. PATCH PRESS OPERATOR: None. ANESTHESIA: Local. SPECIFICS OF PROCEDURE: The patient in a seated position, her left chest was prepped and draped in usual sterile fashion. Appropriate timeout was called. It should be noted I had a long discussion with the patient, her sister and her daughter. They asked that this be performed after we discussed risks and benefits. An ultrasound was used to find a good area and we marked this with indelible ink and after prepping and draping in usual sterile fashion, a 25-gauge needle and 1% Xylocaine was used to anesthetize skin and subcutaneous tissues. A large bore needle was used to go through this with skin wheal to anesthetize the deeper muscle layers and pleura. We got good flow through the needle. A guidewire was inserted through the needle and the needle removed. Triple lumen catheter was slid down to its hilt and then the guidewire removed and 550 mL of a bloody fluid which was nonclotting was drained. She had some reexpansion pain. We then removed this and placed an antimicrobial dressing. She tolerated this very well considering her underlying dementia. Her x-ray looked much improved. I attest to the content of the Intraoperative Record and any orders documented therein. Any exception s are noted below.
[2019-02-27] MEDS: ENOXAPARIN INJ 30 MG/0.3 ML SYR SQ SCH (16:52)
[2019-02-28] MEDS: CEFAZOLIN 1000MG 1,000 MG/7.5 ML SYR IV SCH (06:08)
--- NOTE | 2019-02-28 06:49 | XRay Report ---
XR chest 1V portable CLINICAL HISTORY: 78 years-old Female presenting with hemothorax. TECHNIQUE: Portable upright AP view of the chest was obtained. COMPARISON: 02/27/2019. FINDINGS: Atherosclerosis of the aortic arch. Cardiac silhouette normal in size. Gradient of density at the lef t lung base consistent with a layering pleural effusion, which is overall stable from prior. No pneum othorax. Right lung and pleural space clear. Osteopenia suspected. Lower left rib fractures noted. Up per abdomen normal. IMPRESSION: 1. Stable appearance of the layering left pleural effusion and atelectasis. 2. Multiple lower left rib fractures. No pneumothorax. Electronically signed by: Phil Matamoros M.D. 02/28/2019 6:48 AM
[2019-02-28 06:58] LABS: Hematocrit (blood only) 26.1 % (37-47); Hemoglobin 8.4 g/dL (12.0-16.0); Mean Corpuscular Hemoglobin 28.1 pg (25-34); Mean Corpuscular Hgb Conc 32.2 g/dL (32-36); Mean Corpuscular Volume 87.3 fL (80-100); Platelet Count 245 K/uL (130-400); RDW Coefficient of Variation 13.6 % (11.5-14.5); RDW Standard Deviation 43.5 fL (36.4-46.3); Red Blood Count 2.99 M/uL (4.2-5.4); White Blood Count 8.16 K/uL (4.8-10.8)
[2019-02-28 07:30] LABS: BUN Creatinine Ratio 17.8 (10-20); Creatinine Clr Calc Pharmacy 58.6 ml/min; Est GFR (African American) 96.4; Est GFR (Non-African American) 83.2; Potassium 3.7 mmol/L (3.5-5.1)
[2019-02-28] MEDS: FERROUS SULFATE 325 MG TAB PO SCH ×2 (09:26→15:55)
[2019-02-28] MEDS: FUROSEMIDE 20 MG TAB PO SCH (09:28)
[2019-02-28] MEDS: VENLAFAXINE HCL 37.5 MG TAB PO SCH (09:28)
[2019-02-28] MEDS: POLYETHYLENE (MIRALAX) 17 GM PACK PO SCH (09:36)
[2019-02-28] MEDS: POTASSIUM CHLORIDE 10 MEQ TABCR PO SCH (09:38)
--- NOTE | 2019-02-28 09:46 | Progress Note ---
DATE: 02/28/2019 Ms. Hart was seen today. She looks better. Her x-ray shows no reaccumulation of fluid today. This appears to be blood on the fluid analysis. She is now on room air with 96% saturations. At this point, I would continue her rehabilitation for her hip. I would check serial chest x-ray in the near future.
--- NOTE | 2019-02-28 13:24 | Hospitalist Progress Note ---
Date of Service February 28, 2019 Assessment & Plan (1) Closed fracture of right hip: - Likely related to mechanical fall however etiology unknown; CT Head negative - S/P ORIF/nailing on 02/23 - WBAT with walker/assistance - DVT prophylaxis - Lovenox - Continue PT/OT - likely repeat evals for authorization submission - Orthopedics followed/signed off - will need outpatient followup - instructions in discharge Present on Admission?: Yes (2) Multiple fractures of ribs of left side: - Reports no pain today; incentive spirometer as able but difficult due to dementia - Currently weaned to RA since thoracentesis; Continue pain management Present on Admission?: Yes (3) Pleural effusion, left: - Appears to be a traumatic hemothorax from multiple L rib fractures - S/P thoracentesis on 02/27 - drained 550 cc bloody fluid - CT Surg following - planning on serial CXR in near future Present on Admission?: Yes (4) Anemia: - Acute blood loss from surgical losses/trauma/fractures/hemothorax - Hgb is trending up today and at 8.4 and will continue to monitor daily Present on Admission?: Yes (5) Urinary tract infection: - Growing proteus mirabilis - Continue Cefazolin with treatment completion on 02/28 - Can keep Nolen while having stool incontinence; hopefully can be removed tomorrow Present on Admission?: Yes (6) Dementia: - STABLE; alert and oriented to only self and suspect this is likely baseline Present on Admission?: Yes (7) DVT prophylaxis: - Lovenox Disposition: Bed hold at [facility] - if Hgb stays stable possibly apply for auth tomorrow Subjective Reports she is feeling well today. States she is not having any pain or difficulty breathing. She is alert and oriented to self. She jumps from a couple different topics during our discussion and doesn't always complete a thought. She has been incontinent of stool during my visit. She states she feels sick today however when asked what was bothering her she stated she had a spare car and didn't know what to do with it. Review of Systems Review of Systems: Limited due to advanced dementia. Denies pain jayne. in the hip or difficulty breathing. Physical Exam Constitutional: + frail appearing; no acute distress incontinent of stool Eyes: + anicteric sclerae ENMT: Ears: no hearing impairment Neck: normal visual inspection and trachea midline Respiratory: normal respiratory effort, lungs clear to auscultation Cardiovascular: Rate/Rhythm: regular rate and regular rhythm Gastrointestinal (Abdomen): Inspection/Auscultation: normal bowel sounds Percussion/Palpation: abdomen soft; abdomen nontender Musculoskeletal: Head/Neck/Chest: normocephalic and head atraumatic Skin: no rashes, warm and dry Neurologic: moves all extremities Psychiatric: Orientation: alert and oriented to person Results & Data Vital Signs (Past 12 Hours) Vital Signs Temp Pulse Resp BP Pulse Ox 02/28/19 07:30 96 02/28/19 07:06 36.7 C 86 16 104/56 L 99 PG Care Time/CCT Total # of Minutes Spent Total Time Spent with Patient: Total time spent is greater than 50% in coordination of care (as documented) at patient's floor/unit and/or counseling patient: (1) Closed fracture of right hip Encounter type: initial encounter Qualified Code(s): S72.001A - Fracture of unspecified part of neck of right femur, initial encounter for closed fracture (2) Multiple fractures of ribs of left side Encounter type: initial encounter Fracture type: closed Qualified Code(s): S22.42XA - Multiple fractures of ribs, left side, initial encounter for closed fracture
[2019-02-28] MEDS: ENOXAPARIN INJ 30 MG/0.3 ML SYR SQ SCH (15:55)
[2019-03-01] MEDS: FUROSEMIDE 20 MG TAB PO SCH (09:00)
[2019-03-01] MEDS: FERROUS SULFATE 325 MG TAB PO SCH ×2 (09:00→16:47)
[2019-03-01] MEDS: POTASSIUM CHLORIDE 10 MEQ TABCR PO SCH (09:00)
[2019-03-01] MEDS: VENLAFAXINE HCL 37.5 MG TAB PO SCH (09:00)
[2019-03-01] MEDS: POLYETHYLENE (MIRALAX) 17 GM PACK PO SCH (09:01)
[2019-03-01 09:24] LABS: Hematocrit (blood only) 27.9 % (37-47); Hemoglobin 8.9 g/dL (12.0-16.0); Mean Corpuscular Hemoglobin 27.6 pg (25-34); Mean Corpuscular Hgb Conc 31.9 g/dL (32-36); Mean Corpuscular Volume 86.4 fL (80-100); Mean Platelet Volume 9.2 fL (7.4-10.4); Platelet Count 287 K/uL (130-400); RDW Coefficient of Variation 13.7 % (11.5-14.5); RDW Standard Deviation 42.7 fL (36.4-46.3); Red Blood Count 3.23 M/uL (4.2-5.4); White Blood Count 8.37 K/uL (4.8-10.8)
[2019-03-01 09:50] LABS: BUN Creatinine Ratio 14.4 (10-20); Calcium 8.8 mg/dl (8.5-10.1); Creatinine Clr Calc Pharmacy 62.2 ml/min; Est GFR (African American) 98.4; Est GFR (Non-African American) 84.9; Potassium 3.9 mmol/L (3.5-5.1)
--- NOTE | 2019-03-01 11:57 | Progress Note ---
DATE: 03/01/2019 The patient was seen today. She remains on room air with saturations above 90. Her pain is definitely better. I was pleased with her x-ray yesterday. At this point, he has not enough fluid for us to address, but I would recommend checking a chest x-ray in the next few days.
--- NOTE | 2019-03-01 14:09 | XRay Report ---
XR chest 1V portable CLINICAL HISTORY: 78 years-old Female presenting with SOB. TECHNIQUE: Portable upright AP view of the chest was obtained. COMPARISON: 02/28/2019. FINDINGS: Atherosclerosis of the aortic arch. Cardiac silhouette normal in size. Persistent gradient of density at the left lung base likely indicating layering pleural effusion, which is small. No significant ch garret from prior. Right lung and pleural space clear. No pneumothorax. Multiple left lower rib fractur es again noted. Osteopenia suspected. Upper abdomen normal. IMPRESSION: 1. No significant change with persistent small layering left pleural effusion and atelectasis. 2. Multiple lower left rib fractures. No pneumothorax. Electronically signed by: Phil Matamoros M.D. 03/01/2019 2:08 PM
[2019-03-01] MEDS: ENOXAPARIN INJ 30 MG/0.3 ML SYR SQ SCH (16:46)
--- NOTE | 2019-03-01 17:28 | Hospitalist Progress Note ---
Date of Service March 01, 2019 Assessment & Plan (1) Closed fracture of right hip: - Likely related to mechanical fall however etiology unknown; CT Head negative - S/P ORIF/nailing on 02/23 - WBAT with walker/assistance - DVT prophylaxis - Lovenox - Continue PT/OT - likely repeat evals for authorization submission - Orthopedics followed/signed off - will need outpatient followup - instructions in discharge (2) Multiple fractures of ribs of left side: - Reports no pain today; incentive spirometer as able but difficult due to dementia - Continue pain management (3) Pleural effusion, left: - Appears to be a traumatic hemothorax from multiple L rib fractures - S/P thoracentesis on 02/27 - drained 550 cc bloody fluid - Due to episodic hypoxia on 03/01 a repeat CXR performed and unchanged in remaini ng effusion and she did respond to supplemental O2 - suspect that likely hypoxia is from her being more lethargic today and sleeping more; once up in chair she was more awake and breathing was unlabored - CT Surg following - planning on serial CXR in near future (4) Anemia: - Acute blood loss from surgical losses/trauma/fractures/hemothorax - Hgb continues to trend up today and at 8.9 and will continue to monitor daily (5) Urinary tract infection: - Growing proteus mirabilis - Continue Cefazolin with treatment completion on 02/28 - Nolen removed today; has been incontinent of stool which may be from antibiotics (6) Dementia: - STABLE; alert and oriented to only self and suspect this is likely baseline (7) DVT prophylaxis: - Lovenox Disposition: Bed hold at [facility] [facility] - if Hgb stays stable possibly apply for auth tomorrow -- Updated daughter Carola today. She would appreciate an update if possible due to patient's significant dementia - phone number [phone] Subjective Patient visited on two occasions today. This morning she was alert but appears more fatigued and not as conversant. She denied pain at that time. Later in the afternoon she was noted to have hypoxia and shortness of breath. CXR reveals no change in the small pleural effusion. She was sitting in the bedside chair on re-evaluation and her breathing was non-labored and she denied SOB. Likely given how she was more tired/lethargic today this may be the explaination for the hypoxia. She is more awake in the chair and smiling and talking a bit more. However still not as much as yesterday. At baseline she is rather confused but has been cooperative and pleasant. Review of Systems Review of Systems: Unobtainable due to cognitive status (dementia) Respiratory: no cough and no dyspnea Cardiovascular: no chest pain Gastrointestinal: no abdominal pain and no nausea Genitourinary: no dysuria Musculoskeletal: no joint pain Physical Exam Constitutional: + frail appearing; no acute distress Neck: trachea midline Respiratory: normal respiratory effort, lungs clear to auscultation Auscultation: + diminished lung sounds Cardiovascular: Rate/Rhythm: regular rate and regular rhythm Gastrointestinal (Abdomen): Inspection/Auscultation: normal bowel sounds Percussion/Palpation: abdomen soft; abdomen nontender Musculoskeletal: Head/Neck/Chest: normocephalic and head atraumatic Skin: no rashes, warm and dry Surgical dressing applied that is C/D/I Neurologic: moves all extremities Psychiatric: Orientation: alert and oriented to person; + not oriented to place and + not oriented to time Results & Data Vital Signs (Past 12 Hours) Vital Signs Temp Pulse Pulse Resp BP BP Pulse Ox 03/01/19 15:14 36.7 C 99 H 16 147/85 H 98 03/01/19 13:35 98 03/01/19 13:30 86 L 03/01/19 07:42 36.4 C L 98 H 98 H 18 128/61 92 PG Care Time/CCT Total # of Minutes Spent Total Time Spent with Patient: Total time spent is greater than 50% in coordination of care (as documented) at patient's floor/unit and/or counseling patient: (1) Closed fracture of right hip Encounter type: initial encounter Qualified Code(s): S72.001A - Fracture of unspecified part of neck of right femur, initial encounter for closed fracture (2) Multiple fractures of ribs of left side Encounter type: initial encounter Fracture type: closed Qualified Code(s): S22.42XA - Multiple fractures of ribs, left side, initial encounter for closed fracture
[2019-03-01] MEDS: TRAMADOL HCL 50 MG TABLET PO PRN (19:10)
[2019-03-02] MEDS: TRAMADOL HCL 50 MG TABLET PO PRN (05:33)
--- NOTE | 2019-03-02 05:53 | Progress Note ---
Date of Service March 02, 2019 Subjective RN called at 5:53am regarding low urine output of 50cc, pt demented and also not drinking, diaphoretic and appears dry Please address in the AM Results & Data Vital Signs (Past 12 Hours) Vital Signs Temp Pulse Resp BP Pulse Ox 03/01/19 22:49 36.7 C 94 H 18 128/75 95 PG Care Time/CCT Total # of Minutes Spent Total Time Spent with Patient: Total time spent is greater than 50% in coordination of care (as documented) at patient's floor/unit and/or counseling p atient:
[2019-03-02 06:28] LABS: Basophils # (auto) 0.07 K/uL (0-0.2); Basophils % (auto) 0.9 %; Eosinophils # (auto) 0.31 K/uL (0-0.5); Eosinophils % (auto) 4.1 %; Hemoglobin 8.4 g/dL (12.0-16.0); Immature Granulocytes # (auto) 0.12 K/uL (0.00-0.02); Immature Granulocytes % (auto) 1.6 %; Lymphocytes # (auto) 2.05 K/uL (1.2-3.4); Mean Corpuscular Hemoglobin 27.6 pg (25-34); Mean Corpuscular Hgb Conc 31.1 g/dL (32-36); Mean Corpuscular Volume 88.8 fL (80-100); Mean Platelet Volume 8.9 fL (7.4-10.4); Monocytes # (auto) 0.56 K/uL (0.11-0.59); Monocytes % (auto) 7.4 %; Neutrophils # (auto) 4.49 K/uL (1.4-6.5); Platelet Count 271 K/uL (130-400); RDW Standard Deviation 44.9 fL (36.4-46.3); Red Blood Count 3.04 M/uL (4.2-5.4)
[2019-03-02 07:07] LABS: Calcium 8.5 mg/dl (8.5-10.1); Creatinine Clr Calc Pharmacy 56.1 ml/min; Est GFR (African American) 93.9; Potassium 3.7 mmol/L (3.5-5.1)
[2019-03-02] MEDS: VENLAFAXINE HCL 37.5 MG TAB PO SCH (09:53)
[2019-03-02] MEDS: FUROSEMIDE 20 MG TAB PO SCH (09:54)
[2019-03-02] MEDS: POLYETHYLENE (MIRALAX) 17 GM PACK PO SCH (10:06)
[2019-03-02] MEDS: POTASSIUM CHLORIDE 10 MEQ TABCR PO SCH (10:12)
[2019-03-02] MEDS: FERROUS SULFATE 325 MG TAB PO SCH ×2 (10:12→16:47)
[2019-03-02] MEDS: ENOXAPARIN INJ 30 MG/0.3 ML SYR SQ SCH (16:47)
[2019-03-02] MEDS: ACETAMINOPHEN 325 MG TAB PO PRN (16:59)
--- NOTE | 2019-03-02 23:01 | Hospitalist Progress Note ---
Date of Service March 02, 2019 Assessment & Plan (1) Closed fracture of right hip: - Likely related to mechanical fall however etiology unknown; CT Head negative - S/P ORIF/nailing on 02/23 - WBAT with walker/assistance - DVT prophylaxis - Lovenox - Continue PT/OT - needs updated notes to apply for insurance auth for SNF - Orthopedics followed/signed off - will need outpatient followup - instructions in discharge (2) Multiple fractures of ribs of left side: - Reports no pain for two days; incentive spirometer as able but difficult due to dementia - Continue pain management (3) Pleural effusion, left: - Appears to be a traumatic hemothorax from multiple L rib fractures - S/P thoracentesis on 02/27 - drained 550 cc bloody fluid - Due to episodic hypoxia on 03/01 a repeat CXR performed and unchanged in remaining effusion and she did respond to supplemental O2 - suspect that likely hypoxia is from her being more lethargic today and sleeping more; once up in chair she was more awake and breathing was unlabored - CT Surg following - planning on serial CXR in near future (4) Anemia: - Acute blood loss from surgical losses/trauma/fractures/hemothorax - Hgb continues to be stable, 8.4 today (5) Urinary tract infection: - Growing proteus mirabilis - Continue Cefazolin with treatment completion on 02/28 - Nolen removed 03/01; has been incontinent of stool which may be from antibiotics (6) Dementia: - STABLE; alert and oriented to only self and suspect this is likely baseline (7) DVT prophylaxis: - Lovenox Disposition: Bed hold at [facility] - can apply for terrie Srivastava - phone number [phone] Subjective patient resting in bed, very fatigued woke the patient, very sleepy, would answer a few questions and drift off d/w RN, no issues today, had some low UO overnight but otherwise doing well reviewed labs, CBC and BMP stable, Cr normal Review of Systems Review of Systems: Unobtainable due to cognitive status (dementia and tired) Physical Exam Constitutional: WD/WN, vitals as above + thin and + lethargic Eyes: PERRL, conjunctivae normal, anicteric sclerae ENMT: external ear and nose normal, oropharynx normal Neck: trachea midline, no thyromegaly Respiratory: normal respiratory effort, lungs clear to auscultation Auscultation: + diminished lung sounds (bases) Cardiovascular: RRR, no murmur, no edema Gastrointestinal (Abdomen): normal bowel sounds, soft, nontender, no hepatosplenomegaly Musculoskeletal: no cyanosis or clubbing, extremities motor strength 5/5 Skin: no rashes, warm and dry Neurologic: patellar DTR's 2+ bilat, sensation intact and PERRL, EOMI, accommodation nl, no face palsy, no dysarthria Psychiatric: Orientation: oriented to person and cooperative; + not alert, + not oriented to place and + not oriented to time Lymphatic: no cervical or axillary lymphadenopathy Results & Data Vital Signs (Past 12 Hours) Vital Signs Temp Pulse Resp BP Pulse Ox 03/02/19 15:24 36.7 C 84 16 102/58 L 97 Laboratory Results Laboratory Results - last 24 hr 03/02/19 03/02/19 06:11 06:11 WBC 7.60 RBC 3.04 L Hgb 8.4 L Hct 27.0 L MCV 88.8 MCH 27.6 MCHC 31.1 L RDW Std Deviation 44.9 RDW Coeff of Kimi 14.0 Plt Count 271 MPV 8.9 Immature Gran % (Auto) 1.6 Neut % (Auto) 59.0 Lymph % (Auto) 27.0 [place] % (Auto) 7.4 Eos % (Auto) 4.1 Baso % (Auto) 0.9 Immature Gran # (Auto) 0.12 H Neut # (Auto) 4.49 Lymph # (Auto) 2.05 [place] # (Auto) 0.56 Eos # (Auto) 0.31 Baso # (Auto) 0.07 Sodium 140 Potassium 3.7 Chloride 103 Carbon Dioxide 31 Anion Gap 6.0 BUN 9 Creatinine 0.71 Est Cr Clr Drug Dosing 56.1 Est GFR ( Amer) 93.9 Est GFR (Non-Af Amer) 81.0 BUN/Creatinine Ratio 13.0 Glucose 97 Calcium 8.5 Medications Administered Current Inpatient Medications Acetaminophen (Tylenol) 650 mg PO Q4H PRN PRN Reason: pain/fever Stop: 03/23/19 16:07 Last Admin: 03/02/19 16:59 Dose: 650 mg Documented by: Albuterol (Ventolin 0.083% 2.5mg/3ml) 3 mg INH Q4H PRN PRN Reason: Wheezing Stop: 03/23/19 16:07 Last Admin: 02/26/19 20:46 Dose: 2.5 mg Documented by: Bisacodyl (Dulcolax) 10 mg [place] DAILY PRN PRN Reason: Constipation Stop: 03/23/19 16:07 Enoxaparin Sodium (Lovenox) 30 mg SQ Q24H [facility] Stop: 03/26/19 15:59 Last Admin: 03/02/19 16:47 Dose: 30 mg Documented by: Ferrous Sulfate (Feosol) 325 mg PO BIDM [facility] Stop: 03/27/19 16:59 Last Admin: 03/02/19 16:47 Dose: 325 mg Documented by: Furosemide (Lasix) 20 mg PO QAM [facility] Stop: 03/24/19 08:59 Last Admin: 03/02/19 09:54 Dose: 20 mg Documented by: Hydromorphone HCl (Dilaudid) 0.25 mg IV Q4H PRN PRN Reason: Moderate/Severe Pain Stop: 03/09/19 18:17 Acetaminophen (Ofirmev) 1,000 mg in 100 mls @ 400 mls/hr IV Q8H PRN PRN Reason: Pain Stop: 03/25/19 06:23 Last Infusion: 02/25/19 19:04 Dose: Infused Documented by: Magnesium Hydroxide (Milk Of Magnesia) 30 ml PO Q6H PRN PRN Reason: Constipation Stop: 03/23/19 16:07 Naloxone HCl (Narcan) 0.1 mg IV UD PRN PRN Reason: Opioid Overdose Stop: 03/25/19 18:17 Ondansetron HCl (Zofran Tab) 4 mg PO Q6H PRN PRN Reason: Nausea Stop: 03/23/19 16:07 Ondansetron HCl (Zofran) 4 mg IV Q6H PRN PRN Reason: Nausea Stop: 03/23/19 16:07 Polyethylene Glycol (Miralax Powder Packet) 17 gm PO DAILY [facility] Stop: 03/24/19 08:59 Last Admin: 03/02/19 10:06 Dose: Not Given Documented by: Potassium Chloride (Klor-Con M10) 10 meq PO QAM [facility] Stop: 03/24/19 08:59 Last Admin: 03/02/19 10:12 Dose: Not Given Documented by: Sodium Biphosphate/Sodium Phosphate (Fleet Enema) 118 ml PA DAILY PRN PRN Reason: Constipation Stop: 03/23/19 16:07 Tramadol HCl (Ultram) 50 - 100 mg PO Q4H PRN PRN Reason: Pain Stop: 03/25/19 18:17 Last Admin: 03/02/19 05:33 Dose: 50 mg Documented by: Venlafaxine HCl (Effexor) 37.5 mg PO QAM [facility] Stop: 03/24/19 08:59 Last Admin: 03/02/19 09:53 Dose: 37.5 mg Documented by: PG Care Time/CCT Total # of Minutes Spent Total Time Spent with Patient: Total time spent is greater than 50% in coordination of care (as documented) at patient's floor/unit and/or counseling patient: (1) Closed fracture of right hip Encounter type: initial encounter Qualified Code(s): S72.001A - Fracture of unspecified part of neck of right femur, initial encounter for closed fracture (2) Multiple fractures of ribs of left side Encounter type: initial encounter Fracture type: closed Qualified Code(s): S22.42XA - Multiple fractures of ribs, left side, initial encounter for closed fracture
--- NOTE | 2019-03-03 06:37 | XRay Report ---
XR chest 1V portable HISTORY: 78 years-old Female hemothorax follow-up study in a patient with left-sided hemothorax COMPARISON: Chest radiograph 03/01/2019, chest CT 02/27/2019 TECHNIQUE: Portable AP view of the chest FINDINGS: Multiple mildly displaced acute left-sided rib fractures. Small left pleural effusion with left infra hilar and left lung base opacities persist. No definite pneumothorax. Cardiomediastinal and hilar raquel houettes are within normal limits. Calcified plaque the thoracic aortic arch. Right lung is clear. De mineralized appearance of the bones with degenerative changes of the shoulders and spine. IMPRESSION: 1. Unchanged small left pleural effusion with left midlung and left lung base opacities suggestive of atelectasis/pulmonary contusion. 2. No pneumothorax identified. The above report was generated using voice recognition software. It may contain grammatical, syntax o r spelling errors. Electronically signed by: Pilo Hill M.D. 03/03/2019 6:35 AM
[2019-03-03] MEDS: POTASSIUM CHLORIDE 10 MEQ TABCR PO SCH ×2 (08:38→09:21)
[2019-03-03] MEDS: VENLAFAXINE HCL 37.5 MG TAB PO SCH ×2 (08:38→09:21)
[2019-03-03] MEDS: FUROSEMIDE 20 MG TAB PO SCH ×2 (08:38→09:21)
[2019-03-03] MEDS: FERROUS SULFATE 325 MG TAB PO SCH ×3 (08:38→18:52)
[2019-03-03] MEDS: POLYETHYLENE (MIRALAX) 17 GM PACK PO SCH (08:40)
--- NOTE | 2019-03-03 16:19 | Hospitalist Progress Note ---
Date of Service March 03, 2019 Assessment & Plan (1) Closed fracture of right hip: - Likely related to mechanical fall however etiology unknown; CT Head negative - S/P ORIF/nailing on 02/23 - WBAT with walker/assistance - DVT prophylaxis - Lovenox - Continue PT/OT - Orthopedics followed/signed off - will need outpatient followup - instructions in discharge plan for SNF rehab tomorrow (2) Multiple fractures of ribs of left side: - Reports no pain for three days; incentive spirometer as able but difficult due to dementia - Continue pain management (3) Pleural effusion, left: - Appears to be a traumatic hemothorax from multiple L rib fractures - S/P thoracentesis on 02/27 - drained 550 cc bloody fluid - Due to episodic hypoxia on 03/01 a repeat CXR performed and unchanged in remaining effusion and she did respond to supplemental O2 - - CT Surg following - planning on serial CXR in near future can d/c on oxygen to SNF if needed (4) Anemia: - Acute blood loss from surgical losses/trauma/fractures/hemothorax - Hgb continues to be stable, 8.4 yesterday (5) Urinary tract infection: - Growing proteus mirabilis - Continue Cefazolin with treatment completion on 02/28 - Nolen removed 03/01; has been incontinent of stool which may be from antibiotics (6) Dementia: - STABLE; alert and oriented to only self and suspect this is likely baseline very angry and upset today, not cooperative (7) DVT prophylaxis: - Lovenox Disposition: Bed hold at [facility] - can apply for auth daughter Carola - phone number [phone] likely d/c tomorrow Subjective patient very angry today, cursed at myself and staff no distress, just upset and did not want to talk no other issues according to RN, eating okay, she is not complaining about anything d/w CM, working on placement, needs insurance authorization likely tomorrow Review of Systems Review of Systems: Unobtainable due to cognitive status Physical Exam Constitutional: WD/WN, vitals as above + thin and + lethargic Eyes: PERRL, conjunctivae normal, anicteric sclerae ENMT: external ear and nose normal, oropharynx normal Neck: trachea midline, no thyromegaly Respiratory: normal respiratory effort, lungs clear to auscultation Auscultation: + diminished lung sounds (bases) Cardiovascular: RRR, no murmur, no edema Gastrointestinal (Abdomen): normal bowel sounds, soft, nontender, no hepatosplenomegaly Musculoskeletal: no cyanosis or clubbing, extremities motor strength 5/5 Skin: no rashes, warm and dry Neurologic: patellar DTR's 2+ bilat, sensation intact and PERRL, EOMI, accommodation nl, no face palsy, no dysarthria Psychiatric: Orientation: oriented to person and + guarded (angry, cursing); + not alert, + not oriented to place and + not oriented to time Lymphatic: no cervical or axillary lymphadenopathy Results & Data Vital Signs (Past 12 Hours) Vital Signs Temp Pulse Resp BP Pulse Ox 03/03/19 15: 36.7 C 88 16 128/72 97 03/03/19 07:32 36.7 C 90 15 118/71 98 Medications Administered Current Inpatient Medications Acetaminophen (Tylenol) 650 mg PO Q4H PRN PRN Reason: pain/fever Stop: 03/23/19 16:07 Last Admin: 03/02/19 16:59 Dose: 650 mg Documented by: Albuterol (Ventolin 0.083% 2.5mg/3ml) 3 mg INH Q4H PRN PRN Reason: Wheezing Stop: 03/23/19 16:07 Last Admin: 02/26/19 20:46 Dose: 2.5 mg Documented by: Bisacodyl (Dulcolax) 10 mg [place] DAILY PRN PRN Reason: Constipation Stop: 03/23/19 16:07 Enoxaparin Sodium (Lovenox) 30 mg SQ Q24H [facility] Stop: 03/26/19 15:59 Last Admin: 03/03/19 17:03 Dose: Not Given Documented by: Ferrous Sulfate (Feosol) 325 mg PO BIDM [facility] Stop: 03/27/19 16:59 Last Admin: 03/03/19 18:52 Dose: 325 mg Documented by: Furosemide (Lasix) 20 mg PO QAM [facility] Stop: 03/24/19 08:59 Last Admin: 03/03/19 09:21 Dose: Not Given Documented by: Hydromorphone HCl (Dilaudid) 0.25 mg IV Q4H PRN PRN Reason: Moderate/Severe Pain Stop: 03/09/19 18:17 Acetaminophen (Ofirmev) 1,000 mg in 100 mls @ 400 mls/hr IV Q8H PRN PRN Reason: Pain Stop: 03/25/19 06:23 Last Infusion: 02/25/19 19:04 Dose: Infused Documented by: Magnesium Hydroxide (Milk Of Magnesia) 30 ml PO Q6H PRN PRN Reason: Constipation Stop: 03/23/19 16:07 Naloxone HCl (Narcan) 0.1 mg IV UD PRN PRN Reason: Opioid Overdose Stop: 03/25/19 18:17 Ondansetron HCl (Zofran Tab) 4 mg PO Q6H PRN PRN Reason: Nausea Stop: 03/23/19 16:07 Ondansetron HCl (Zofran) 4 mg IV Q6H PRN PRN Reason: Nausea Stop: 03/23/19 16:07 Polyethylene Glycol (Miralax Powder Packet) 17 gm PO DAILY [facility] Stop: 03/24/19 08:59 Last Admin: 03/03/19 08:40 Dose: Not Given Documented by: Potassium Chloride (Klor-Con M10) 10 meq PO QAM [facility] Stop: 03/24/19 08:59 Last Admin: 03/03/19 09:21 Dose: Not Given Documented by: Sodium Biphosphate/Sodium Phosphate (Fleet Enema) 118 ml [place] DAILY PRN PRN Reason: Constipation Stop: 03/23/19 16:07 Tramadol HCl (Ultram) 50 - 100 mg PO Q4H PRN PRN Reason: Pain Stop: 03/25/19 18:17 Last Admin: 03/02/19 05:33 Dose: 50 mg Documented by: Venlafaxine HCl (Effexor) 37.5 mg PO QAM [facility] Stop: 03/24/19 08:59 Last Admin: 03/03/19 09:21 Dose: Not Given Documented by: PG Care Time/CCT Total # of Minutes Spent Total Time Spent with Patient: Total time spent is greater than 50% in coordination of care (as documented) at patient's floor/unit and/or counseling patient: (1) Multiple fractures of ribs of left side Encounter type: initial encounter Fracture type: closed Qualified Code(s): S22.42XA - Multiple fractures of ribs, left side, initial encounter for closed fracture (2) Closed fracture of right hip Encounter type: initial encounter Qualified Code(s): S72.001A - Fracture of unspecified part of neck of right femur, initial encounter for closed fracture
[2019-03-03] MEDS: ENOXAPARIN INJ 30 MG/0.3 ML SYR SQ SCH (17:03)
--- NOTE | 2019-03-03 19:00 | Progress Note ---
DATE: 03/03/2019 The patient was seen today. She is confused and a little rambunctious this morning. She is now requiring 2 liters of O2, which she did not before. Her x-ray was reviewed this morning. She may be reaccumulating a bit of fluid in her right base. Quite frankly, I do not believe this is going to represent blood and I am not as concerned with draining it. It appears there is some opacification in the left base too, which may not be fluid. I would hold off tapping her now and check periodic chest x-rays. We may have to perform another thoracentesis on her in the future. GIDEON
[2019-03-04] MEDS: FERROUS SULFATE 325 MG TAB PO SCH ×2 (07:42→16:20)
[2019-03-04] MEDS: POTASSIUM CHLORIDE 10 MEQ TABCR PO SCH (07:42)
[2019-03-04] MEDS: VENLAFAXINE HCL 37.5 MG TAB PO SCH (07:42)
[2019-03-04] MEDS: FUROSEMIDE 20 MG TAB PO SCH (07:42)
[2019-03-04] MEDS: POLYETHYLENE (MIRALAX) 17 GM PACK PO SCH (07:42)
[2019-03-04 12:53] LABS: Hematocrit (blood only) 33.4 % (37-47); Hemoglobin 10.4 g/dL (12.0-16.0)
[2019-03-04 13:17] LABS: BUN Creatinine Ratio 18.5 (10-20); Creatinine Clr Calc Pharmacy 53.1 ml/min; Est GFR (African American) 87.9; Est GFR (Non-African American) 75.8; Potassium 4.3 mmol/L (3.5-5.1)
[2019-03-04] MEDS: ENOXAPARIN INJ 30 MG/0.3 ML SYR SQ SCH (16:14)
--- NOTE | 2019-03-07 08:06 | Discharge Summary ---
Date of Service March 04, 2019 Admission HPI Per Admitting Provider 78 y/o F who was brought here from [facility]. Pt is a poor historian due to dementia. She has no memory of falling. Per ED physician, pt fell out of bed last night. Pt was noted to have pain today and was sent to the ED for evaluation. Pt denies fever, SOB, chest pain, abd pain, n/v/c/d, LE pain or swelling. Of note: documentation from SNF suggests that pt was SOB and anxious at facility. Principal Diagnosis Hip fracture Discharge Exam Constitutional WD/WN, vitals as above + thin Eyes PERRL, conjunctivae normal, anicteric sclerae ENMT external ear and nose normal, oropharynx normal Neck trachea midline, no thyromegaly Respiratory normal respiratory effort, lungs clear to auscultation Auscultation: + diminished lung sounds (bases) Cardiovascular RRR, no murmur, no edema Gastrointestinal (Abdomen) normal bowel sounds, soft, nontender, no hepatosplenomegaly Musculoskeletal no cyanosis or clubbing, extremities motor strength 5/5 Skin no rashes, warm and dry Neurologic patellar DTR's 2+ bilat, sensation intact and PERRL, EOMI, accommodation nl, no face palsy, no dysarthria Psychiatric Orientation: oriented to person, oriented to place and cooperative (more pleasant than day before); + not alert and + not oriented to time Lymphatic no cervical or axillary lymphadenopathy Discharge Data Allergies Allergy/AdvReac Type Severity Reaction Status Date / Time lorazepam [From Ativan] AdvReac Difficulty Verified 02/21/19 11:14 Breathing Consultations 02/21/19 13:57 ED Decision to Admit Stat 02/21/19 16:08 Consult Case Management - Discharge Planning Routine 02/21/19 16:18 Consult Orthopedic Surgery Routine 02/22/19 13:45 Consult Cardiology Routine 02/25/19 11:45 Consult Thoracic Surgery Routine Procedures Performed Operation Date: 02/22/19 08:10 <No data on this case meets the specified criteria> Operation Date: 02/23/19 08:20 Actual Procedures p Right intertrochanteric hip fracture, internal fixation with trochanteric femoral nail(Right) - Bryce Villagomez MD Ordered Studies 02/21/19 10:18 CT abd pelvis IV con only Stat CT chest w con Stat CT head/brain wo con Stat 02/21/19 16:43 MR hip RT wo con Urgent 02/23/19 14:00 FL fluoroscopy <1hr Routine FL hip RT 2-3V Routine 02/25/19 10:10 US point of care ultrasound Routine 02/27/19 10:54 CT abd pelvis wo con Routine CT chest wo con Routine Hospital Course (1) Closed fracture of right hip: - Likely related to mechanical fall however etiology unknown; CT Head negative - S/P ORIF/nailing on 02/23 - WBAT with walker/assistance - DVT prophylaxis - Lovenox for 30 days, script sent - Continue PT/OT - Orthopedics followed/signed off - will need outpatient followup - instructions in discharge plan for SNF rehab at [facility] (2) Multiple fractures of ribs of left side: - Reports no pain for four days; incentive spirometer as able but difficult due to dementia - Continue pain management (3) Pleural effusion, left: - Appears to be a traumatic hemothorax from multiple L rib fractures - S/P thoracentesis on 02/27 - drained 550 cc bloody fluid - Due to episodic hypoxia on 03/01 a repeat CXR performed and unchanged in remaining effusion and she did respond to supplemental O2 - - CT Surg following - planning on serial CXR in near future can d/c on oxygen to SNF if needed will follow up with Dr. Pulliam (4) Anemia: - Acute blood loss from surgical losses/trauma/fractures/hemothorax - Hgb continues to be stable, > 8 consistently (5) Urinary tract infection: - Growing proteus mirabilis - Continue Cefazolin with treatment completion on 02/28 - Nolen removed 03/01; has been incontinent of stool which may be from antibiotics (6) Dementia: - STABLE; alert and oriented to only self and suspect this is likely baseline very angry and upset at times, difficult to get her to participate in therapy (7) DVT prophylaxis: - Lovenox, continue for 30 days at [facility] per orthopedics Total Time Total Time Spent Total Time Spent (In Minutes): 32 minutes Total Time Includes: Examination of the Patient, Discharge Planning, Medication Reconciliation, Communication With Other Providers and Other (speaking with family over the phone) Discharge Plan Discharge Items Patient Disposition: Transfer Snf Fac Reason For Visit: HIP FRACTURE Discharge Diagnosis: Hip fracture Rib fractures with hemothorax, s/p thoracentesis Condition: Good Discharge Goals: Decrease discomfort and Improve function Activity: Per 'Additional Instructions' section Lifting: Gradually increase as tolerated Exercise/Sports: Gradually increase as tolerated Non-emergency contact: Primary Care Provider and Surgeon Call non-emergency contact if: you have any medication questions, your symptoms worsen, your pain is not controlled and you have a fever Follow-up/Referrals: Lee Dallas [Primary Care Provider] - Addtl Provider Instructions: Medications: - FERROUS SULFATE: iron low, started on bid supplementation - ULTRAM: take as needed for pain - LOVENOX: 30mg daily for 3 more weeks for DVT prophylaxis from hip fracture Rib fractures, left side, with small hemothorax thoracentesis done by Dr. Pulliam serial chest x-rays have showed that small effusion has been stable Dr. Pulliam would like to see in the office in a week with CXR Hip fracture: see below [facility] DISCHARGE INSTRUCTIONS: HIP FRACTURE SELF CARE INSTRUCTIONS: A. You are to ambulate with a walker or crutches for approximately 6 weeks. B. You are WEIGHT BEARING TOLERATE on your operative lower extremity for at least 6 weeks. C. Wear low heeled shoes with non-slip soles D. Be sure that your floors are free of things that could trip you throw rugs, electrical cords, and small objects. Avoid wet and waxed floors, especially with crutches/walker/cane. E. Try to walk several times a day with rest periods between. F. You may shower 48 hours after surgery and get the incision area wet, but DO NOT soak or submerge incision area in water. (No baths, swimming pools, hot tubs) G. You may have a large, band-aid like dressing over your incision (Aquacel). This will remain on your incision for 7 days, and then can be removed. You CAN shower with this on. If incision is leaking through the dressing, please call the office . H. Do NOT apply soap or any ointment/lotions directly over incision. I. You may use ice as needed to operative site. SPECIAL CARE INSTRUCTIONS: VERY IMPORTANT TO READ AND REVIEW A. You may be at risk for phlebitis or blood clots. a. Wear surgical stockings (SHIRA hose) for 2 weeks after surgery to improve circulation and reduce swelling. b. Take LOVENOX 30mg SQ daily for 4 weeks or as directed. This is your blood thinner. c. If you are on Coumadin- you will have daily/weekly blood work to monitor your levels. This will be done by either your family physician/stretcher helper (if you are on Coumadin chronically) versus your orthopedic surgeon. Expect a phone call the day of or the day after your blood work is drawn to adjust your dose accordingly. B. There are a few signs you need to watch for after you are home. Call [facility] at [phone] if you experience any of the following: a. If you have a temperature of 101 degrees or higher. b. Sudden increase in pain in your hip not relieved by rest or pain medication. c. Any fluid or drainage from the incision; redness of the incision. d. Shortness of breath or chest pain. B. Please call [facility] at [phone] if you have any questions or concerns about your operation or recovery. C. Call your physician if: a. Temperature is greater than 101 degrees (F). b. Pain is not relieved by prescribed pain medications. c. Increase drainage or redness from incision. d. Unanswered questions or concerns. D. Pain Medication: a. You will be prescribed pain medication upon discharge that should last till your first post-operative appointment. b. If you experience nausea and/or skin rash, discontinue this medication and contact our office for an alternative medication. c. Caution- narcotic pain medication can cause constipation. FOLLOW UP VISIT: Please call [facility] at [phone] to schedule a follow up appointment with Dr. Miller in 10-14 days from the date of your surgery date. Prescriptions: New tramadol 50 mg Tablet 50 - 100 mg PO Q4H PRN (Reason: pain) 30 Days Qty: 60 RF: 0 ferrous sulfate 325 mg (65 mg iron) Tablet,Delayed Release (Dr/Ec) 325 mg PO BIDM 30 Days Qty: 60 RF: 1 enoxaparin [Lovenox] 30 mg/0.3 mL Syringe 30 mg subcut Q24H 21 Days Qty: 6.3 RF: 0 Continued potassium chloride 10 mEq capsule, extended release 10 meq PO QAM RF: 0 furosemide 20 mg tablet 20 mg PO QAM RF: 0 acetaminophen 325 mg Tablet 650 mg PO Q6H PRN (Reason: Pain) RF: 0 albuterol sulfate 2.5 mg /3 mL (0.083 %) solution for nebulization 3 mg inhalation Q4H PRN (Reason: Wheezing) RF: 0 polyethylene glycol 3350 [Miralax] 17 gram Powder In Packet 17 g PO DAILY RF: 0 ondansetron HCl 4 mg tablet 4 mg PO Q6H PRN (Reason: Nausea) RF: 0 magnesium hydroxide [Milk of Magnesia] 400 mg/5 mL Suspension 30 ml PO DAILY PRN (Reason: Constipation) RF: 0 bisacodyl [Dulcolax (bisacodyl)] 10 mg Suppository 10 mg AK DAILY PRN (Reason: Constipation) RF: 0 venlafaxine 37.5 mg tablet 37.5 mg PO QAM RF: 0 Fleet Enema 19-7 gram/118 mL Enema 118 ml AK DAILY PRN (Reason: Constipation) RF: 0 melatonin 1 mg Tablet 1 mg PO HS RF: 0 Stand-Alone Forms: [facility] Discharge Orders: Discharge Order (Routine); Ordered 03/04/19 Ordered By: Rc Jeffery Skilled Items Patient informed of condition?: Yes DNR: No Discharge Level of Care: Skilled Communicable Disease: No Discharge Prognosis: Stable Admission Data Admit Date/Time: 02/21/19 14:48 Attending Provider: Rc Jeffery Admit Provider: Ashley Diaz Primary Care Provider: Lee Dallas Other Providers: Don Mendoza Jessica A ; Nydegger, Charles C. ; Tj Pulliam Service: Surgical Services Other Interventions: Discharge Summary Assessment (RN) Last Done: 03/04/19 16:24 DC Date/Time DO NOT enter until pt leaves facility: 03/04/19 19:30
== END 2019-03-04 19:30 | DRG 956 ==
LOC: ED 10:10 → 3W 14:48 → SUATTDRO 14:48 → 3W 15:30